=== PATIENT | male | born 1950 | race Caucasian/White ===

== ENCOUNTER → 2016-09-23 | Outpatient (CLI) | payer OTHER ==
[~2016-09-23] MED LIST: ADVIN25/60 INH; AMLO-110 PO; ASPI81TA28 PO; ATOR-24 PO; CETI10TA84 PO; CLOP1TAB15 PO; FLUT0.0529; LORA-741 PO; METF-384 PO; MULT-506 PO; PARO1TAB27 PO; SYMIN160 INH; VITAMIN D PO; [UNRECOGNIZED DRUG - OTHER] INJ
[2016-09-23 17:26] LABS: ALT/SGPT 65 U/L (12-78); BLOOD UREA NITROGEN 13 mg/dl (7-18); BUN/CREATININE RATIO 13.8 (10-20); CALCIUM 8.7 mg/dl (8.5-10.1); CARBON DIOXIDE 27 mmol/L (21-32); CHLORIDE 97 mmol/L (98-107); CHOLESTEROL 103 mg/dl (0-200); CREATININE 0.92 mg/dl (0.60-1.40); GLUCOSE 323 mg/dl (70-99); POTASSIUM 3.9 mmol/L (3.5-5.1); SODIUM 135 mmol/L (136-145)
[2016-09-23 17:32] LABS: ALB/GLOB RATIO 0.8 (0.9-2); ALKALINE PHOSPHATASE 128 U/L (45-117); AST/SGOT 51 U/L (15-37); CHOLESTEROL/HDL RATIO 3.4; HDL CHOLESTEROL 30 mg/dl; LDL CHOLESTEROL CALCULATED 33 mg/dl; PROSTATE SPECIFIC ANTIGEN 0.421 ng/ml (0.000-4.000); TRIGLYCERIDES 199 mg/dl (0-150); VERY LOW DENSITY LIPOPROT CALC 40 mg/dl
[2016-09-23 17:39] LABS: BETA-HYDROXYBUTYRATE 2.39 mg/dL (0.2-2.81); THYROID STIMULATING HORMONE 0.687 uIu/ml (0.300-4.500)
[2016-09-23 17:55] LABS: RATIO 53.2 mcg/mg (0-30.0)
[2016-09-24 06:16] LABS: ESTIMATED AVERAGE GLUCOSE 240 mg/dl; HA1C FLAG Normal (Normal)
== END | disposition home or self-care (01) ==
LOC: C.LABBFT 12:58
PROVIDERS: ATTEND Nurse Practitioner
DX: Z12.5 Encounter for screening for malignant neoplasm of prostate (principal); E04.2 Nontoxic multinodular goiter; E11.9 Type 2 diabetes mellitus without complications; I25.10 Atherosclerotic heart disease of native coronary artery without angina pectoris

== ENCOUNTER → 2016-10-15 | Outpatient (CLI) | payer OTHER ==
[2016-10-15 12:45] LABS: ALT/SGPT 35 U/L (12-78); BLOOD UREA NITROGEN 13 mg/dl (7-18); BUN/CREATININE RATIO 14.5 (10-20); CALCIUM 9.3 mg/dl (8.5-10.1); CARBON DIOXIDE 27 mmol/L (21-32); CHLORIDE 104 mmol/L (98-107); CHOLESTEROL 107 mg/dl (0-200); CREATININE 0.87 mg/dl (0.60-1.40); GLUCOSE 125 mg/dl (70-99); POTASSIUM 4.2 mmol/L (3.5-5.1); SODIUM 141 mmol/L (136-145); TRIGLYCERIDES 123 mg/dl (0-150); VERY LOW DENSITY LIPOPROT CALC 25 mg/dl
[2016-10-15 12:53] LABS: ALB/GLOB RATIO 0.9 (0.9-2); ALKALINE PHOSPHATASE 102 U/L (45-117); AST/SGOT 35 U/L (15-37); CHOLESTEROL/HDL RATIO 2.4; HDL CHOLESTEROL 44 mg/dl; LDL CHOLESTEROL CALCULATED 38 mg/dl; THYROID STIMULATING HORMONE 0.867 uIu/ml (0.300-4.500)
[2016-10-15 12:55] LABS: ESTIMATED AVERAGE GLUCOSE 212 mg/dl; HA1C FLAG Normal (Normal)
== END | disposition home or self-care (01) ==
LOC: C.LABBFT 08:20
PROVIDERS: ATTEND Internal Medicine
DX: E78.5 Hyperlipidemia, unspecified (principal); I10 Essential (primary) hypertension; E11.9 Type 2 diabetes mellitus without complications; I25.10 Atherosclerotic heart disease of native coronary artery without angina pectoris

== ENCOUNTER → 2017-02-19 | Outpatient (CLI) | payer OTHER ==
[2017-02-19 18:53] LABS: ALKALINE PHOSPHATASE 80 U/L (45-117); ALT/SGPT 25 U/L (12-78); AST/SGOT 21 U/L (15-37); BLOOD UREA NITROGEN 19 mg/dl (7-18); BUN/CREATININE RATIO 22.2 (10-20); CALCIUM 8.7 mg/dl (8.5-10.1); CARBON DIOXIDE 29 mmol/L (21-32); CHLORIDE 107 mmol/L (98-107); CHOLESTEROL 118 mg/dl (0-200); CHOLESTEROL/HDL RATIO 2.6; CREATININE 0.85 mg/dl (0.60-1.40); GLUCOSE 84 mg/dl (70-99); HDL CHOLESTEROL 46 mg/dl; LDL CHOLESTEROL CALCULATED 54 mg/dl; POTASSIUM 4.4 mmol/L (3.5-5.1); SODIUM 143 mmol/L (136-145); TRIGLYCERIDES 89 mg/dl (0-150); VERY LOW DENSITY LIPOPROT CALC 18 mg/dl
[2017-02-20 06:36] LABS: ESTIMATED AVERAGE GLUCOSE 140 mg/dl; HA1C FLAG Normal (Normal)
== END | disposition home or self-care (01) ==
LOC: C.LABBFT 11:48
PROVIDERS: ATTEND Nurse Practitioner
DX: E11.9 Type 2 diabetes mellitus without complications (principal)

== ENCOUNTER → 2017-02-21 | Outpatient (CLI) | payer OTHER ==
--- NOTE | 2017-02-21 15:42 | MAMMOGRAPHY REPORT ---
MALE BILATERAL DIGITAL DIAGNOSTIC MAMMOGRAM WITH CAD AND TARGETED LEFT ULTRASOUND: 02/21/2017 CLINICAL HISTORY: The patient reports focal left nipple tenderness which is increasing over the last 2 months. He denies any palpable lumps. He has a history of melanoma status post chemotherapy. TECHNIQUE: Current study was also evaluated with a Computer Aided Detection (CAD) system. Bilateral CC and MLO views were obtained. COMPARISON: No prior exams were available for comparison. BREAST COMPOSITION: The tissue of both breasts is prominently fatty. FINDINGS: A marker joel the site of pain involving the left subareolar breast. There is a small jonah unt of fibroglandular tissue seen within the left subareolar breast, consistent with benign gynecomas tia. There are no suspicious masses, calcifications, or areas of architectural distortion noted in e ither breast. Targeted ultrasound was performed of the left subareolar breast in the region of the pain pointed out by the patient. Fibroglandular tissue is seen within this region, consistent with gynecomastia. No suspicious masses are noted in this region on ultrasound. IMPRESSION: ACR BI-RADS CATEGORY 2: BENIGN, TARGETED ULTRASOUND ACR BI-RADS CATEGORY 2: BENIGN Mild gynecomastia involving the left subareolar breast, which corresponds with the tenderness pointed out by the patient. There is no mammographic or targeted sonographic evidence of malignancy. Recom mend clinical follow-up as to a possible underlying cause. The patient has been verbally notified of the results. Approximately 10% of breast cancers are not detected with mammography. A negative mammographic report should not delay biopsy if a clinically suggestive mass is present. Ema Contreras M.D. ah/:02/21/2017 13:58:41 Personal Counselor: Bessy OSORIO(Elin)(M), [facility] letter sent: Normal /2 BI-RADS Code: ACR BI-RADS Category 2: Benign Ultrasound BI-RADS: ACR BI-RADS Category 2: Benign
== END | disposition home or self-care (01) ==
LOC: C.MAMM 13:33
PROVIDERS: ATTEND Nurse Practitioner Family
DX: N62 Hypertrophy of breast (principal); Z85.820 Personal history of malignant melanoma of skin

== ENCOUNTER → 2017-03-19 | Outpatient (CLI) | payer OTHER ==
--- NOTE | 2017-03-19 20:53 | DIAGNOSTIC IMAGING REPORT ---
ORBIT RADIOGRAPHS 3 VIEWS HISTORY: pre-MRI screening. COMPARISON: None. FINDINGS: There are no radiopaque foreign bodies identified within the orbits. IMPRESSION: No radiopaque foreign bodies identified within the orbits. Electronically signed by: Gerson Wadsworth M.D. 03/19/2017 8:51 PM Dictated Date/Time: 03/19/2017 8:51 PM
--- NOTE | 2017-03-20 13:49 | DIAGNOSTIC IMAGING REPORT ---
MRI OF THE LEFT FOOT WITHOUT CONTRAST CLINICAL HISTORY: Left foot pain. Evaluate for occult fracture of left fifth metatarsal. COMPARISON STUDY: No previous studies for comparison. TECHNIQUE: Utilizing a 1.5 Jia magnet and dedicated coil, multiplanar, multi echo imaging of the left foot was performed without IV contrast. FINDINGS: A marker was placed on the skin at site of maximal pain. This marker overlies the distal cuboid and base of the left fifth metatarsal. No definite fracture is identified within the left fifth metatarsal. There is no significant marrow edema. There is no suspicious marrow replacement. There is a small focus of moderate marrow edema within the medial talar dome. This suggests an osteochondral abnormality. The flexor, extensor and peroneal tendons are intact. Alignment of the tarsometatarsal joints is anatomic. No mass or fluid collection is shown within the left foot. The anterior talofibular ligament is likely torn. IMPRESSION: 1. No evidence of fracture of the left fifth metatarsal. 2. Small focus of moderate marrow edema within the medial talar dome which suggests a stable osteochondral lesion. 3. Tear of the anterior talofibular ligament which is likely old. Electronically signed by: Gerson Wadsworth M.D. 03/20/2017 1:48 PM Dictated Date/Time: 03/19/2017 10:01 PM
== END | disposition home or self-care (01) ==
LOC: C.MRI 19:44
PROVIDERS: ATTEND Orthopaedic Surgery Sports Medicine
DX: M79.672 Pain in left foot (principal)

== ENCOUNTER → 2017-05-13 | Outpatient (CLI) | payer OTHER ==
[2017-05-13 12:16] LABS: BASO % 0.5 %; BASO ABS # 0.03 K/uL (0-0.2); COMPLETE YES; EOS % 2.4 %; IG% 0.2 %; LYMPH % 26.1 %; LYMPH ABS # 1.52 K/uL (1.2-3.4); MEAN CELL VOLUME 89.6 fL (80-100); MEAN CORPUSCULAR HEMOGLOBIN 31.2 pg (25-34); MEAN CORPUSCULAR HGB CONC 34.8 g/dl (32-36); MEAN PLATELET VOLUME 10.2 fL (7.4-10.4); MONO % 9.8 %; PLATELET COUNT 241 K/uL (130-400); RED BLOOD COUNT 4.91 M/uL (4.7-6.1); WHITE BLOOD COUNT 5.82 K/uL (4.8-10.8)
[2017-05-13 12:51] LABS: ALB/GLOB RATIO 0.9 (0.9-2); ALKALINE PHOSPHATASE 93 U/L (45-117); BLOOD UREA NITROGEN 16 mg/dl (7-18); BUN/CREATININE RATIO 17.6 (10-20); C-REACTIVE PROTEIN < 0.29 mg/dl (0-0.29); CALCIUM 9.4 mg/dl (8.5-10.1); CARBON DIOXIDE 31 mmol/L (21-32); CHLORIDE 106 mmol/L (98-107); CREATININE 0.89 mg/dl (0.60-1.40); GLUCOSE 133 mg/dl (70-99); POTASSIUM 4.9 mmol/L (3.5-5.1); SODIUM 140 mmol/L (136-145)
[2017-05-13 12:58] LABS: ALT/SGPT 22 U/L (12-78); AST/SGOT 17 U/L (15-37); THYROID STIMULATING HORMONE 0.767 uIu/ml (0.300-4.500)
== END | disposition home or self-care (01) ==
LOC: C.LABBFT 09:12
PROVIDERS: ATTEND Nurse Practitioner
DX: C43.59 Malignant melanoma of other part of trunk (principal)

== ENCOUNTER → 2017-05-21 | Outpatient (CLI) | payer OTHER ==
--- NOTE | 2017-05-21 11:49 | DIAGNOSTIC IMAGING REPORT ---
PET/CT WHOLE BODY HISTORY: MELANOMA TECHNIQUE: PET/CT was performed from the vertex of the skull through the feet following the intravenous administration of 12.18 mCi of F18-FDG. Non-contrast CT imaging was performed over the same range without breath-hold for attenuation correction of PET images and anatomic correlation, but not for primary interpretation as it is not of standard diagnostic quality. CT DOSE: COMPARISON: Chest abdomen and pelvis CT 11/21/2015. FINDINGS: HEAD AND NECK: Mild non masslike thickening within the subcutaneous right postauricular soft tissues. This demonstrates mild FDG uptake with an SUV max of 2.7. No FDG avid cervical lymph nodes. Normal degenerative uptake seen throughout the brain. CHEST: There is no FDG-avid disease in the chest. There is no axillary, mediastinal, or hilar lymphadenopathy. There is no pleural or pericardial effusion. There is no air-space disease or suspicious lung nodule. A 3 cm right thyroid nodule is again noted. This is better appreciated on a prior thyroid ultrasound. This does not demonstrate significant FDG uptake. ABDOMEN/PELVIS: Below the diaphragm, tracer is distributed physiologically in the gastrointestinal and genitourinary tracts. There is no significant lymphadenopathy and no FDG-avid disease. Calcified gallstone. Small focus of FDG uptake near the right adrenal gland likely represents physiologic uptake within the IVC. There are no adrenal gland nodules. Persistent thickening of the sigmoid colon favors muscular hypertrophy due to the extensive diverticulosis. MUSCULOSKELETAL/LOWER EXTREMITIES: There is no FDG-avid or destructive bone lesion. IMPRESSION: 1. Focal area of mild non masslike thickening within the subcutaneous right postauricular soft tissues. This may be due to mild inflammatory change or physiologic uptake. Direct visualization is recommended to exclude the less likely possibility of a soft tissue lesion. 2. Otherwise, no FDG avid disease identified within the chest, abdomen, pelvis, or lower extremities. 3. No change in the mild thickening of the mid sigmoid colon. This may be due to muscular hypertrophy from the extensive colonic diverticulosis. 4. Redemonstration of the 3 cm right thyroid nodule. This does not demonstrate significant FDG uptake. Electronically signed by: Christian Herrera M.D. 05/21/2017 11:48 AM Dictated Date/Time: 05/21/2017 11:26 AM
== END | disposition home or self-care (01) ==
LOC: C.PET 08:27
PROVIDERS: ATTEND Nurse Practitioner Family
DX: C43.59 Malignant melanoma of other part of trunk (principal); E04.1 Nontoxic single thyroid nodule

== ENCOUNTER → 2017-08-04 | Outpatient (CLI) | payer OTHER ==
[2017-08-04 17:58] LABS: BLOOD UREA NITROGEN 16 mg/dl (7-18); BUN/CREATININE RATIO 17.9 (10-20); CALCIUM 8.9 mg/dl (8.5-10.1); CARBON DIOXIDE 29 mmol/L (21-32); CHLORIDE 102 mmol/L (98-107); CREATININE 0.88 mg/dl (0.60-1.40); GLUCOSE 96 mg/dl (70-99); POTASSIUM 4.4 mmol/L (3.5-5.1); SODIUM 137 mmol/L (136-145)
[2017-08-04 18:08] LABS: PROSTATE SPECIFIC ANTIGEN 0.551 ng/ml (0.000-4.000); THYROID STIMULATING HORMONE 0.875 uIu/ml (0.300-4.500)
[2017-08-05 07:18] LABS: ESTIMATED AVERAGE GLUCOSE 128 mg/dl; HA1C FLAG Normal (Normal)
== END | disposition home or self-care (01) ==
LOC: C.LABBFT 11:44
PROVIDERS: ATTEND Nurse Practitioner
DX: E11.9 Type 2 diabetes mellitus without complications (principal); Z12.5 Encounter for screening for malignant neoplasm of prostate; E04.2 Nontoxic multinodular goiter

== ENCOUNTER 2021-09-13 16:59 | Observation (INO) ==
[2021-09-13 18:35] LABS: Basophils # (auto) 0.03 K/uL (0-0.2); Basophils % (auto) 0.3 %; Eosinophils # (auto) 0.15 K/uL (0-0.5); Eosinophils % (auto) 1.3 %; Hematocrit (blood only) 46.4 % (42-52); Hemoglobin 16.1 g/dL (14.0-18.0); Immature Granulocytes # (auto) 0.02 K/uL (0.00-0.02); Immature Granulocytes % (auto) 0.2 %; Lymphocytes # (auto) 2.62 K/uL (1.2-3.4); Lymphocytes % (auto) 22.9 %; Mean Corpuscular Hemoglobin 29.2 pg (25-34); Mean Corpuscular Hgb Conc 34.7 g/dL (32-36); Mean Corpuscular Volume 84.1 fL (80-100); Mean Platelet Volume 10.1 fL (7.4-10.4); Monocytes # (auto) 0.64 K/uL (0.11-0.59); Monocytes % (auto) 5.6 %; Neutrophils # (auto) 7.97 K/uL (1.4-6.5); Neutrophils % (auto) 69.7 %; Platelet Count 381 K/uL (130-400); RDW Coefficient of Variation 13.1 % (11.5-14.5); RDW Standard Deviation 40.1 fL (36.4-46.3); Red Blood Count 5.52 M/uL (4.7-6.1); White Blood Count 11.43 K/uL (4.8-10.8)
--- NOTE | 2021-09-13 18:39 | Emergency Department Note ---
History of Present Illness General Chief complaint: Abdominal Pain Stated complaint: ABDOMINAL PAIN, A1C ELEVATED Time Seen by Provider: 09/13/21 18:27 Source: patient History of Present Illness Provider complaint: Abdominal pain Onset (ago): week(s) Location: abdomen Radiation: non-radiation Pain Consistency: + intermittent Maximum Pain Intensity: 8 Quality: + dull Relieved By: + none Exacerbated By: + none Associated symptoms: no chest pain, no cough, no fever/chills, no nausea/vomiting or no shortness of breath This is a 71-year-old male who presents with abdominal pain near his umbilicus starting about a week ago. The patient states the pain is intermittent. He describes it as dull. No modifying factors. He states that he [facility] and was scheduled for a CAT scan of the abdomen pelvis tomorrow. He denies any associated fever, nausea, vomiting or diarrhea. He has had no black or bloody stools. He did have a normal bowel movement today at 2 PM. He has had no cough or cold symptoms, chest pain, shortness of breath, cough or cold symptoms or urinary symptoms. Home Medications Medication Instructions Recorded Confirmed Type aspirin 81 mg tablet,delayed 81 mg PO DAILY 12/21/18 09/13/21 History release fluticasone propionate 50 2 spray INTRANASAL DAILY PRN 12/21/18 09/13/21 History mcg/actuation nasal spray,suspension (Flonase Allergy Relief) albuterol sulfate 90 mcg/actuation 2 puff INHALATION Q4 PRN #18 g 02/16/21 09/13/21 Rx aerosol inhaler (ProAir HFA) famotidine 20 mg tablet 20 mg PO BID #60 tab 07/23/21 09/13/21 Rx amlodipine 5 mg tablet 5 mg PO DAILY 09/13/21 09/13/21 History atorvastatin 40 mg tablet 40 mg PO DAILY 09/13/21 09/13/21 History budesonide-formoterol HFA 80 2 puff INHALATION BID 09/13/21 09/13/21 History mcg-4.5 mcg/actuation aerosol inhaler clopidogrel 75 mg tablet 75 mg PO DAILY 09/13/21 09/13/21 History dicyclomine 10 mg capsule 10 mg PO Q6 09/13/21 09/13/21 History escitalopram oxalate 5 mg tablet 10 mg PO DAILY 09/13/21 09/13/21 History metformin 500 mg tablet,extended 1,000 mg PO DAILY 09/13/21 09/13/21 History release 24 hr montelukast 10 mg tablet 10 mg PO DAILY 09/13/21 09/13/21 History multivitamin 1 tab PO DAILY 09/13/21 09/13/21 History semaglutide (Ozempic) 0.25 mg SUBCUT .weekly #1.5 ml 09/13/21 09/13/21 Rx vitamin B complex-vit B12 1 tab PO DAILY 09/13/21 09/13/21 History Allergies Allergy/AdvReac Type Severity Reaction Status Date / Time amoxicillin Allergy Mild RASH Verified 09/13/21 19:37 metoprolol Allergy Mild S.O.B. Verified 09/13/21 19:37 fluticasone AdvReac unknown Verified 09/13/21 19:37 [From Advair Diskus] salmeterol AdvReac unknown Verified 09/13/21 19:37 [From Advair Diskus] Past Med/Surg History Medical History (Updated 09/13/21 @ 22:48 by Renetta Ardon DO) Anxiety Asthma Cancer MELANOMA (WITH EXCISION & CHEMOTHERAPY) Depression Diabetes mellitus, type 2 NIDDM GERD (gastroesophageal reflux disease) Hyperlipidemia Hypertension Malignant melanoma of back Presence of drug-eluting stent in right coronary artery Seasonal allergies Surgical History History of bowel resection History of cardiac cath X1. (2014) [facility] [place]. History of colonoscopy History of heart artery stent X1 STENTS. (2014). TAKES [facility]. History of melanoma excision History of repair of rotator cuff right Family History Sister Diabetes Father Alzheimer disease Mother Pancreatic cancer Denies family history of Colon cancer Ovarian cancer Prostate cancer Myocardial infarction Breast cancer Social History Smoking Status: Light tobacco smoker Tobacco Type: Cigarettes Age Started Using Tobacco: 17; Age Quit Using Tobacco: 49; packs per day: 1; Years Smoked: 32; Cigarettes Per Day: 20; Number of Years Since Quit: 20; Second Hand Exposure: No; Do You Dip or Chew Tobacco: No; Tobacco Cessation Education Requested by Patient: No Hx Alcohol Use: No Hx Substance Use: No Preferred Language: Sami Communication Ability: Effective Visual Impairment: No Limitations Hearing Ability: Normal [employer] Floorperson Required: No Beliefs That Will Affect Care: None marital status: Current Living Situation: Alone Current Living Situation Comment: Home in [place] current occupational status: retired current occupation: retired from [employer] Other Information That Helps Us Care for You: No Feels Safe at Home: Yes Safety Concerns: Feels Safe At This Time Childhood Exposure to Second-Hand Smoke: No Dental Care, Regularly: No Physical Activity Frequency: Does not Exercise Seatbelt Use: always Sunscreen Use: No Assistive Devices: Denture - Upper and Glasses Review of Systems See HPI for pertinent positives & negatives. and A total of 10 systems reviewed and were otherwise negative Physical Exam Vital Signs Vital Signs - 24 hr 09/13/21 17:12 09/13/21 19:02 09/13/21 19:23 Temperature 36.7 C Temperature Source Temporal Artery Scan Pulse Rate 109 H 90 Pulse Rate [Apical] 87 Pulse Rate from SpO2 Sensor 91 H Pulse Rhythm Regular Pulse Rhythm [Apical] Pulse Strength Normal Pulse Strength [Apical] Respiratory Rate 20 16 17 Respiratory Effort / Characteristics Non-Labored Spontaneous Respiratory Depth Normal Respiratory Pattern Regular Blood Pressure 165/102 H Blood Pressure [Right Arm] 167/95 H Blood Pressure Mean 123 Blood Pressure Mean [Right Arm] 119 Blood Pressure Position [Right Arm] Lying Pulse Oximetry 96 97 96 Oxygen Delivery Method Room Air Room Air Sepsis Recent Fever Within 48 Hours No Sepsis New/Unexplained Change in Mental Status No Sepsis Action Taken by Nursing No Action Required 09/13/21 19:30 09/13/21 19:40 09/13/21 19:50 Temperature Temperature Source Pulse Rate 99 H 88 85 Pulse Rate [Apical] Pulse Rate from SpO2 Sensor 99 H 87 85 Pulse Rhythm Pulse Rhythm [Apical] Pulse Strength Pulse Strength [Apical] Respiratory Rate 16 19 18 Respiratory Effort / Characteristics Respiratory Depth Respiratory Pattern Blood Pressure Blood Pressure [Right Arm] Blood Pressure Mean Blood Pressure Mean [Right Arm] Blood Pressure Position [Right Arm] Pulse Oximetry 92 96 92 Oxygen Delivery Method Sepsis Recent Fever Within 48 Hours Sepsis New/Unexplained Change in Mental Status Sepsis Action Taken by Nursing 09/13/21 20:00 09/13/21 20:10 09/13/21 20:20 Temperature Temperature Source Pulse Rate 84 94 H 98 H Pulse Rate [Apical] Pulse Rate from SpO2 Sensor 85 94 H 97 H Pulse Rhythm Pulse Rhythm [Apical] Pulse Strength Pulse Strength [Apical] Respiratory Rate 21 19 17 Respiratory Effort / Characteristics Respiratory Depth Respiratory Pattern Blood Pressure Blood Pressure [Right Arm] Blood Pressure Mean Blood Pressure Mean [Right Arm] Blood Pressure Position [Right Arm] Pulse Oximetry 93 92 92 Oxygen Delivery Method Sepsis Recent Fever Within 48 Hours Sepsis New/Unexplained Change in Mental Status Sepsis Action Taken by Nursing 09/13/21 20:30 09/13/21 20:40 09/13/21 20:50 Temperature Temperature Source Pulse Rate 95 H 104 H 99 H Pulse Rate [Apical] Pulse Rate from SpO2 Sensor 94 H 104 H 99 H Pulse Rhythm Pulse Rhythm [Apical] Pulse Strength Pulse Strength [Apical] Respiratory Rate 16 25 H 27 H Respiratory Effort / Characteristics Respiratory Depth Respiratory Pattern Blood Pressure Blood Pressure [Right Arm] Blood Pressure Mean Blood Pressure Mean [Right Arm] Blood Pressure Position [Right Arm] Pulse Oximetry 92 96 95 Oxygen Delivery Method Sepsis Recent Fever Within 48 Hours Sepsis New/Unexplained Change in Mental Status Sepsis Action Taken by Nursing 09/13/21 21:00 09/13/21 21:10 09/13/21 21:20 Temperature Temperature Source Pulse Rate 98 H 99 H 103 H Pulse Rate [Apical] Pulse Rate from SpO2 Sensor 98 H 100 H 102 H Pulse Rhythm Pulse Rhythm [Apical] Pulse Strength Pulse Strength [Apical] Respiratory Rate 21 20 24 Respiratory Effort / Characteristics Respiratory Depth Respiratory Pattern Blood Pressure Blood Pressure [Right Arm] Blood Pressure Mean Blood Pressure Mean [Right Arm] Blood Pressure Position [Right Arm] Pulse Oximetry 91 92 95 Oxygen Delivery Method Sepsis Recent Fever Within 48 Hours Sepsis New/Unexplained Change in Mental Status Sepsis Action Taken by Nursing 09/13/21 21:30 09/13/21 21:40 09/13/21 21:46 Temperature Temperature Source Pulse Rate 99 H 98 H Pulse Rate [Apical] 100 H Pulse Rate from SpO2 Sensor 98 H 97 H Pulse Rhythm Pulse Rhythm [Apical] Pulse Strength Pulse Strength [Apical] Respiratory Rate 23 21 20 Respiratory Effort / Characteristics Respiratory Depth Respiratory Pattern Blood Pressure Blood Pressure [Right Arm] Blood Pressure Mean Blood Pressure Mean [Right Arm] Blood Pressure Position [Right Arm] Pulse Oximetry 94 92 92 Oxygen Delivery Method Sepsis Recent Fever Within 48 Hours Sepsis New/Unexplained Change in Mental Status Sepsis Action Taken by Nursing 09/13/21 22:26 09/14/21 00:00 Temperature 37.1 C Temperature Source Oral Pulse Rate Pulse Rate [Apical] 88 87 Pulse Rate from SpO2 Sensor Pulse Rhythm Pulse Rhythm [Apical] Regular Pulse Strength Pulse Strength [Apical] Normal Respiratory Rate 18 16 Respiratory Effort / Characteristics Non-Labored Respiratory Depth Normal Respiratory Pattern Regular Blood Pressure Blood Pressure [Right Arm] 107/95 138/80 Blood Pressure Mean Blood Pressure Mean [Right Arm] 99 99 Blood Pressure Position [Right Arm] Lying Lying Pulse Oximetry 93 93 Oxygen Delivery Method Room Air Room Air Sepsis Recent Fever Within 48 Hours Sepsis New/Unexplained Change in Mental Status Sepsis Action Taken by Nursing Constitutional: Vital signs reviewed. Eyes: Pupils are equal round reactive to light. Conjunctiva are noninjected. ENT: Pharynx is clear without erythema or exudate. Mucous membranes are moist. Neck supple without meningeal signs. Respiratory: Clear to auscultation bilaterally. Breath sounds are equal bilaterally. Cardiovascular: Regular rate and rhythm. No rubs or gallops. GI: Soft, nondistended with partially reducible umbilical and periumbilical hernia with tenderness. No guarding. Bowel sounds are present. Musculoskeletal: No peripheral edema. No lower extremity tenderness. Integumentary: No cyanosis. or jaundice. Neurological: The patient is awake and alert. No focal deficits. Psychiatric: Normal affect. Not anxious appearing. Course Administered Medications Sodium Chloride (Nss 1000ml) 1,000 mls @ 125 mls/hr IV .Q8H [facility] Stop: 09/14/21 06:04 Last Admin: 09/13/21 22:10 Dose: 125 mls/hr Documented by: [id number] Insulin Glargine (Insulin Glargine Solostar 100 Units/Ml 3 Ml Pen) 15 units SC BID DANIA Stop: 10/13/21 22:04 Last Admin: 09/13/21 22:47 Dose: 15 units Documented by: [id number] Cosigned by: [id number] Discontinued Medications Sodium Chloride (Nss 1000ml) 500 mls @ 999 mls/hr IV .Q31M ONE Stop: 09/13/21 19:48 Last Infusion: 09/13/21 20:04 Dose: 0 mls/hr Documented by: [id number] Admin: 09/13/21 19:33 Dose: 999 mls/hr Documented by: [id number] Insulin Human Regular (Novolin-R Insulin Per Unit Charge) 8 units IV NOW STA Stop: 09/13/21 19:19 Last Admin: 09/13/21 19:32 Dose: 8 units Documented by: [id number] Cosigned by: [id number] Insulin Human Regular (Insulin Human Regular) 10 units SC NOW STA Stop: 09/13/21 22:06 Last Admin: 09/13/21 22:09 Dose: 10 units Documented by: [id number] Cosigned by: [id number] Insulin Human Regular (Novolin-R Insulin Per Unit Charge) Confirm Administered Dose 10 units .ROUTE .STK-MED ONE Stop: 09/13/21 22:10 Last Admin: 09/13/21 22:16 Dose: Not Given Documented by: [id number] Ioversol (Optiray 320 100ml) 95 ml IV ONCE ONE Stop: 09/13/21 19:16 Last Admin: 09/13/21 19:18 Dose: 95 ml Documented by: [id number] Medical Decision Making Differential Diagnosis Umbilical hernia, incarcerated hernia, mesenteric ischemia, pancreatitis, cholecystitis, choledocholithiasis, peptic ulcer disease Medical Records Attestation: I reviewed the patient's medical records. I did perform a limited focused review of portions of the patient's old chart on the electronic medical record. The patient was seen by his primary care doctor 2 days ago and his metformin was increased to 2000 mg a day due to elevated blood sugars. Home Medications Current Medication List: was personally reviewed by me Laboratory Data Attestation: I reviewed the patient's lab results. Result diagrams: 09/13/21 18:23 09/13/21 18:23 Lab Results 09/13/21 09/13/21 09/13/21 Range/Units 18:23 18:23 18:45 WBC 11.43 H (4.8-10.8) K/uL RBC 5.52 (4.7-6.1) M/uL Hgb 16.1 (14.0-18.0) g/dL Hct 46.4 (42-52) % MCV 84.1 (80-100) fL MCH 29.2 (25-34) pg MCHC 34.7 (32-36) g/dL RDW Std Deviation 40.1 (36.4-46.3) fL RDW Coeff of [place] 13.1 (11.5-14.5) % Plt Count 381 (130-400) K/uL MPV 10.1 (7.4-10.4) fL Immature Gran % (Auto) 0.2 % Neut % (Auto) 69.7 % Lymph % (Auto) 22.9 % [place] % (Auto) 5.6 % Eos % (Auto) 1.3 % Baso % (Auto) 0.3 % Neut # (Auto) 7.97 H (1.4-6.5) K/uL Lymph # (Auto) 2.62 (1.2-3.4) K/uL [place] # (Auto) 0.64 H (0.11-0.59) K/uL Eos # (Auto) 0.15 (0-0.5) K/uL Baso # (Auto) 0.03 (0-0.2) K/uL Immature Gran # (Auto) 0.02 (0.00-0.02) K/uL Sodium 132 L (136-145) mmol/L Potassium 4.7 D (3.5-5.1) mmol/L Chloride 98 (98-107) mmol/L Carbon Dioxide 28 (21-32) mmol/L Anion Gap 6.0 (3-11) BUN 13 (7-18) mg/dl Creatinine 1.09 (0.6-1.4) mg/dl Est Cr Clr Drug Dosing 60.4 ml/min Est GFR ( Amer) 78.2 ml/min Est GFR (Non-Af Amer) 67.5 ml/min BUN/Creatinine Ratio 11.6 (10-20) Glucose 426 H* (70-99) mg/dl POC Glucose (70-99) mg/dl Calcium 10.5 H (8.5-10.1) mg/dl Total Bilirubin 0.3 (0.2-1) mg/dl AST 24 (15-37) U/L ALT 35 (12-78) Alkaline Phosphatase 107 (45-117) U/L Troponin I < 0.015 (0-0.045) ng/ml Total Protein 8.2 (6.4-8.2) gm/dl Albumin 3.7 (3.4-5.0) gm/dl Globulin 4.5 H (2.5-4.0) gm/dl Albumin/Globulin Ratio 0.8 L (0.9-2) Lipase 220 (73-393) U/L Beta-Hydroxybutyric Acd (0.2-2.81) mg/dl Urine Color Yellow Urine Appearance Clear (Clear) Urine pH 8.0 H (4.5-7.5) Ur Specific [place] 1.039 H (1.000-1.030) Urine Protein Negative (Negative) Urine Glucose (UA) 3+ H (Negative) Urine Ketones 1+ H (Negative) Urine Blood Trace H (Negative) Urine Nitrite Negative (Negative) Urine Bilirubin Negative (Negative) Urine Urobilinogen Negative (Negative) Ur Leukocyte Esterase Negative (Negative) Urine WBC (Auto) 0 (0-5) /hpf Urine RBC (Auto) 5-10 H (0-4) /hpf U Hyaline Cast (Auto) 0 (0-5) /lpf U Epithel Cells (Auto) 0-5 (0-5) /lpf Urine Bacteria (Auto) Negative (Negative) SARS-CoV-2, RNA, NAAT (NEGATIVE) 09/13/21 09/13/21 09/13/21 Range/Units 20:08 20:35 23:52 WBC (4.8-10.8) K/uL RBC (4.7-6.1) M/uL Hgb (14.0-18.0) g/dL Hct (42-52) % MCV (80-100) fL MCH (25-34) pg MCHC (32-36) g/dL RDW Std Deviation (36.4-46.3) fL RDW Coeff of [place] (11.5-14.5) % Plt Count (130-400) K/uL MPV (7.4-10.4) fL Immature Gran % (Auto) % Neut % (Auto) % Lymph % (Auto) % [place] % (Auto) % Eos % (Auto) % Baso % (Auto) % Neut # (Auto) (1.4-6.5) K/uL Lymph # (Auto) (1.2-3.4) K/uL [place] # (Auto) (0.11-0.59) K/uL Eos # (Auto) (0-0.5) K/uL Baso # (Auto) (0-0.2) K/uL Immature Gran # (Auto) (0.00-0.02) K/uL Sodium (136-145) mmol/L Potassium (3.5-5.1) mmol/L Chloride (98-107) mmol/L Carbon Dioxide (21-32) mmol/L Anion Gap (3-11) BUN (7-18) mg/dl Creatinine (0.6-1.4) mg/dl Est Cr Clr Drug Dosing ml/min Est GFR ( Amer) ml/min Est GFR (Non-Af Amer) ml/min BUN/Creatinine Ratio (10-20) Glucose (70-99) mg/dl POC Glucose 365 H* 181 H (70-99) mg/dl Calcium (8.5-10.1) mg/dl Total Bilirubin (0.2-1) mg/dl AST (15-37) U/L ALT (12-78) Alkaline Phosphatase (45-117) U/L Troponin I (0-0.045) ng/ml Total Protein (6.4-8.2) gm/dl Albumin (3.4-5.0) gm/dl Globulin (2.5-4.0) gm/dl Albumin/Globulin Ratio (0.9-2) Lipase (73-393) U/L Beta-Hydroxybutyric Acd (0.2-2.81) mg/dl Urine Color Urine Appearance (Clear) Urine pH (4.5-7.5) Ur Specific [place] (1.000-1.030) Urine Protein (Negative) Urine Glucose (UA) (Negative) Urine Ketones (Negative) Urine Blood (Negative) Urine Nitrite (Negative) Urine Bilirubin (Negative) Urine Urobilinogen (Negative) Ur Leukocyte Esterase (Negative) Urine WBC (Auto) (0-5) /hpf Urine RBC (Auto) (0-4) /hpf U Hyaline Cast (Auto) (0-5) /lpf U Epithel Cells (Auto) (0-5) /lpf Urine Bacteria (Auto) (Negative) SARS-CoV-2, RNA, NAAT NEGATIVE (NEGATIVE) Imaging Data Radiologist's Impression: Abdomen/Pelvis CT 09/13/21 18:36 CT abd pelvis IV con only CLINICAL HISTORY: periumbilical pain TECHNIQUE: Helical axial images of the abdomen and pelvis were obtained and displayed. Automated dose lowering techniques and/or adjustment according to patient size were utilized for this exam. This exam was performed with in travenous contrast. COMPARISON: Comparison is made to CT abdomen pelvis 10/25/2020 FINDINGS: Lower chest: No acute abnormality Liver: Hepatomegaly is seen with the midclavicular line length of 17 cm. Gallbladder and biliary tree: Layering radiodense gallstones are seen. No intra- or extrahepatic biliary ductal dilation. Pancreas: Unremarkable, no focal lesions. Spleen: Unremarkable. Adrenals: Unremarkable. Kidneys and ureters: Unremarkable. Bladder: Limited evaluation due to underdistention. Reproductive organs: Unremarkable. Bowel: Status post small bowel resection. Diverticulosis is seen without evidence of diverticulitis. The appendix is normal. Lymph nodes Retroperitoneal: Unremarkable. Mesenteric: Previously noted mesenteric lymphadenopathy is no longer present. Pelvic: Unremarkable. Peritoneum: Normal Vessels: Atherosclerotic calcifications are seen. Abdominal wall: There is an incisional hernia, new from prior exam, containing a loop of bowel. There is no bowel obstruction noted, however there is surrounding edema. There are also multiple tiny supraumbilical hernias containing only fat. Bones: Unremarkable. IMPRESSION: 1. There is an infraumbilical hernia with a loop of bowel and edema. Although there is no rodrigo obstruction, early ischemic changes cannot be excluded. 2. Previous seen noted mesenteric lymphadenopathy has resolved. 3. Redemonstration of colonic diverticulosis. 4. Hepatomegaly. 5. Additional findings as above. ACT 112: Negative or not required by law. Electronically signed by: Kartik Griffin M.D. 09/13/2021 7:37 PM ECG Data Attestation: I personally reviewed and interpreted this ECG as follows: Indication: + abdominal pain Rate (beats per minute): 97 Rhythm: + normal sinus ECG Intervals/blocks: + Right Bundle branch block ECG [place]: + Normal ECG ST segments: no ST elevation ECG Findings: no PVCs Comparison ECG Date: from (September 02, 2014) Change: the following changes noted (Right bundle branch block is new.) MDM Narrative I did evaluate the patient as noted above. The patient is presenting with a week of intermittent dull periumbilical pain. On exam he is tender over a partially reducible hernia. He denies any chest discomfort or pain or shortness of breath. He has had normal bowel movements and is not nauseated or vomiting or febrile. IV access was established. I did order and personally review the patient's 12-lead EKG as described above. He has a right bundle branch block. This was not present from his EKG from 2013. A more recent EKG is not available. He denies having any type of chest discomfort or shortness of breath. I did order a urine analysis. He does not have a UTI. He does have 1+ ketones and 3+ glucose. I did order and review the patient's blood work as noted in the electronic medical record. His white blood cell count is 11.4. He is not anemic or thrombocytopenic. His glucose is 426 with a pseudohyponatremia of 132. Electrolytes are otherwise unremarkable and has no signs of acidosis. Serum ketones were hemolyzed. LFTs are unremarkable. Lipase is 220. I did treat him with IV insulin and normal saline. I did order a CT of the abdomen and pelvis. I did review the images myself as well as the radiology report as described above. He has an incisional hernia with bowel and some edema. Ischemic changes cannot be ruled out. I did consult surgery. Melquiades Parada did come and assessed the patient in the emergency department. He was able to reduce the hernia in its entirety. The patient states he feels much better and has no pain currently. Melquiades Parada did not feel that there was any evidence of ischemia. Because Dr. Martin is the attending on for surgery he did not wish to be admitted to that service because he states his had complications from her surgery with Dr. Martin. The surgical service requested that the medical service admit the patient and they could consult the next surgical service in the morning as he is unwilling to see Dr. Martin. I did discuss case with Dr. Arevalo who very graciously excepted the patient for hospitalization. I did discuss the case with the dependency case manager. Repeat blood sugar is 365. Impression & Plan Incarcerated incisional hernia, Hyperglycemia Discharge Plan Visit Data Chief Complaint: Abdominal Pain Stated Complaint: ABDOMINAL PAIN, A1C ELEVATED ED Provider: Ab Rocha Discharge Problem: Incarcerated incisional hernia, Hyperglycemia Patient Disposition: Being Evaluated by Hospitalist Forms Stand Alone Forms: My [facility] Prescriptions Prescriptions: No Action albuterol sulfate [ProAir HFA] 90 mcg/actuation HFA aerosol inhaler 2 puff INHALATION Q4 PRN (Reason: Shortness Of Breath) Qty: 18 RF: 5 famotidine 20 mg tablet 20 mg PO BID Qty: 60 RF: 11 Ozempic 0.25 mg or 0.5 mg(2 mg/1.5 mL) pen injector 0.25 mg subcut .weekly Qty: 1.5 RF: 5 aspirin 81 mg Tablet,Delayed Release (Dr/Ec) 81 mg PO DAILY RF: 0 fluticasone propionate [Flonase Allergy Relief] 50 mcg/actuation [place],Suspension 2 spray INTRANASAL DAILY PRN (Reason: Allergy Symptoms) RF: 0 multivitamin Tablet 1 tab PO DAILY RF: 0 dicyclomine 10 mg capsule 10 mg PO Q6 RF: 0 budesonide-formoterol 80-4.5 mcg/actuation Hfa Aerosol Inhaler 2 puff INHALATION BID RF: 0 vitamin B complex-vit B12 1 tab PO DAILY RF: 0 atorvastatin 40 mg tablet 40 mg PO DAILY RF: 0 clopidogrel 75 mg tablet 75 mg PO DAILY RF: 0 amlodipine 5 mg tablet 5 mg PO DAILY RF: 0 montelukast 10 mg tablet 10 mg PO DAILY RF: 0 metformin 500 mg tablet extended release 24 hr 1,000 mg PO DAILY RF: 0 escitalopram oxalate 5 mg tablet 10 mg PO DAILY RF: 0 Referrals Referrals: Manolo Morales III, MD [Primary Care Provider] -
[2021-09-13 18:58] LABS: Alanine Aminotransferase 35 (12-78); Albumin Globulin Ratio 0.8 (0.9-2); Albumin Level 3.7 gm/dl (3.4-5.0); Alkaline Phosphatase 107 U/L (45-117); Aspartate Aminotransferase 24 U/L (15-37); BUN Creatinine Ratio 11.6 (10-20); Bilirubin,Total 0.3 mg/dl (0.2-1); Blood Urea Nitrogen 13 mg/dl (7-18); Calcium 10.5 mg/dl (8.5-10.1); Carbon Dioxide 28 mmol/L (21-32); Chloride 98 mmol/L (98-107); Creatinine Clr Calc Pharmacy 60.4 ml/min; Est GFR (African American) 78.2 ml/min; Est GFR (Non-African American) 67.5 ml/min; Globulin 4.5 gm/dl (2.5-4.0); Glucose 426 mg/dl (70-99); Lipase 220 U/L (73-393); Potassium 4.7 mmol/L (3.5-5.1); Sodium 132 mmol/L (136-145); Total Protein 8.2 gm/dl (6.4-8.2)
[2021-09-13] MEDS ORDERED: OPTIRAY 320 100ml IV ONE (19:15)
[2021-09-13 19:16] LABS: Appearance Urine Clear (Clear); Bacteria Urine Automated Negative (Negative); Bilirubin Urine Negative (Negative); Blood Urine Trace (Negative); Cast Urine Automated 0 /lpf (0-5); Color Urine Yellow; Epithelial Cell Urine Auto 0-5 /lpf (0-5); Glucose Urine UA 3+ (Negative); Ketones Urine 1+ (Negative); Leukocyte Esterase Urine Negative (Negative); Nitrite Urine Negative (Negative); Protein Urine Negative (Negative); Specific Gravity Urine 1.039 (1.000-1.030); Urobilinogen Urine Negative (Negative); WBC Urine Automated 0 /hpf (0-5)
[2021-09-13] MEDS ORDERED: SODIUM CHLORIDE 0.9% 1000ML 500 ML IV ONE (19:18)
[2021-09-13] MEDS ORDERED: NovoLIN-R INSULIN PER UNIT CHARGE IV STA (19:18)
--- NOTE | 2021-09-13 19:39 | CT Scan Report ---
CT abd pelvis IV con only CLINICAL HISTORY: periumbilical pain TECHNIQUE: Helical axial images of the abdomen and pelvis were obtained and displayed. Automated dose lowering techniques and/or adjustment according to patient size were utilized for this exam. This e xam was performed with intravenous contrast. COMPARISON: Comparison is made to CT abdomen pelvis 10/25/2020 FINDINGS: Lower chest: No acute abnormality Liver: Hepatomegaly is seen with the midclavicular line length of 17 cm. Gallbladder and biliary tree: Layering radiodense gallstones are seen. No intra- or extrahepatic bili cordell ductal dilation. Pancreas: Unremarkable, no focal lesions. Spleen: Unremarkable. Adrenals: Unremarkable. Kidneys and ureters: Unremarkable. Bladder: Limited evaluation due to underdistention. Reproductive organs: Unremarkable. Bowel: Status post small bowel resection. Diverticulosis is seen without evidence of diverticulitis. The appendix is normal. Lymph nodes Retroperitoneal: Unremarkable. Mesenteric: Previously noted mesenteric lymphadenopathy is no longer present. Pelvic: Unremarkable. Peritoneum: Normal Vessels: Atherosclerotic calcifications are seen. Abdominal wall: There is an incisional hernia, new from prior exam, containing a loop of bowel. There is no bowel obstruction noted, however there is surrounding edema. There are also multiple tiny supr aumbilical hernias containing only fat. Bones: Unremarkable. IMPRESSION: 1. There is an infraumbilical hernia with a loop of bowel and edema. Although there is no rodrigo obst ruction, early ischemic changes cannot be excluded. 2. Previous seen noted mesenteric lymphadenopathy has resolved. 3. Redemonstration of colonic diverticulosis. 4. Hepatomegaly. 5. Additional findings as above. ACT 112: Negative or not required by law. Electronically signed by: Kartik Griffni M.D. 09/13/2021 7:37 PM
[2021-09-13 20:03] LABS: Troponin I < 0.015 ng/ml (0-0.045)
--- NOTE | 2021-09-13 21:22 | Surgery Consultation ---
Date of Consultation September 13, 2021 Assessment & Plan (1) Ventral hernia: It is recommended that the patient be admitted to the hospital for further evaluation of his hernia. Discussed with the patient that I am the physician assistant therapy aide for Dr. Pro Martin. Due to personal reasons the patient is adamant that he does not wish to receive care from Dr. Martin. I further discussed with the patient that Dr. Martin is the surgeon on-call for this evening and no one else is available. Patient next stated that he would rather be discharged home and accept any adverse consequences as a result of not receiving care this evening. I discussed with the patient that his physical exam is reassuring that he does not have any significant bowel ischemia but I cannot guarantee this and I can also not guarantee he will not have any adverse sequelae if he goes home this evening. I told him adverse sequelae could include but are not limited to nausea or vomiting, worsening pain, or bowel ischemia that could potentially result in sepsis or . He expressed his understanding and did not change his mind about his above decision. After further discussion with the patient he did note that he has been discussing his current situation with his [facility] who felt it would be beneficial to have the patient admitted to the hospital to obtain improved control of his glucose prior to undergoing surgical intervention anyway. That being said I further discussed the case with the treating emergency room physician who says that he will make attempts to have the patient admitted to the hospitalist service and then determine if an alternate surgical service can be consulted on 09/14/2021. I conversed with Dr. Arevalo of the [facility] physician group hospitalist service and he notes that he will admit the patient to the hospital on the basis of improving the patient's diabetes control. He notes that the patient will be reassessed tomorrow to determine if the patient can be discharged home or if surgical intervention is in his best interest and if so a surgical consultation will be placed at that time. History of Present Illness Reason for Consultation: Ventral hernia with possible incarceration History of Present Illness This is a 71-year-old male who presented to [facility] emergency department secondary to abdominal pain. Question patient on his medical history and he notes that in February 2021 he had a partial bowel resection by Dr. Mcginnis at [facility] in [facility] secondary to cancer. Patient says he did not require a colostomy and he was in the hospital proximally 3 days and discharged home after an uneventful hospital course. Patient notes that he did note some burning pain near some of his surgical incisions for several days. He says otherwise he did not have any adverse sequelae from his surgery. Several months after his surgery he noted a bulge near his umbilicus. He notes that this got progressively worse over the ensuing several months. He did note that his recently due to ALS and due to her illness she had several falls requiring him to lift her off the floor which she feels contributed to the bulge near his umbilicus. Patient noted over the past week he has had worsening pain. He contacted his care team at the [facility] and they ordered a CAT scan for tomorrow which was 09/14/2021. The patient notes that the pain got markedly worse today prompting his visit to the emergency department. He specifically denies any nausea vomiting. He denies any fevers, shakes, chills. He notes his last meal was approximately 12:00 PM today and he notes that he had a normal bowel movement today. In the emergency department the patient was noted to be afebrile and hemodynamically stable. He did have labs and imaging which I independently reviewed. His white blood cell count had a slight elevation at 11.4. Hemoglobin, hematocrit, and platelet count were all within normal range. Chemistry profile showed sodium was 132. Potassium, BUN, and creatinine were within the normal range. Patient did not have any elevation of his LFTs or lipase. Cardiac enzymes were checked and were nonelevated. Urinalysis was not indicative of infection. It is no over the mention that the patient was noted to have elevated glucose level with a reading of 426. An EKG was performed that showed the patient had a right bundle branch block but no changes indicative of acute ischemia were noted. The patient also had a CT scan of the abdomen pelvis that showed patient had an infraumbilical incisional hernia which contained a loop of bowel. There is no bowel obstruction noted but there was some surrounding edema. The interpreting radiologist could not exclude ischemia. I discussed with the treating emergency room physician and he notes that when he first evaluated the patient he could feel a slight bulge inferior to the umbilicus that he felt was at least partially reducible. I question the patient about his daily life and he notes he does have a history of coronary artery disease requiring cardiac catheterization with stent placemen t in 2013. He notes that since this time he is able to lead a fairly active lifestyle hiking and hunting. He notes that when he walks upgrades he does get slightly short of breath but this has been stable for several months. He specifically denies any chest pain with his daily activities or walking up steps and inclines. He notes that he is a diabetic and takes Glucophage only. He notes that his sugars seem to have been less well controlled since his abdominal pain began. Concerning his diabetes he says he sees an network/telecom engineer yearly and does not have any significant eye pathology related to this condition and he denies any nonhealing foot wounds. At the time of my interview the patient is resting comfortably in bed. His pain was well controlled and he was in no distress. Allergies Allergy/AdvReac Type Severity Reaction Status Date / Time amoxicillin Allergy Mild RASH Verified 09/13/21 19:37 metoprolol Allergy Mild S.O.B. Verified 09/13/21 19:37 fluticasone AdvReac unknown Verified 09/13/21 19:37 [From Advair Diskus] salmeterol AdvReac unknown Verified 09/13/21 19:37 [From Advair Diskus] Home Medications Medication Instructions Recorded Confirmed Type aspirin 81 mg tablet,delayed 81 mg PO DAILY 12/21/18 09/13/21 History release fluticasone propionate 50 2 spray INTRANASAL DAILY PRN 12/21/18 09/13/21 History mcg/actuation nasal spray,suspension (Flonase Allergy Relief) albuterol sulfate 90 mcg/actuation 2 puff INHALATION Q4 PRN #18 g 02/16/21 09/13/21 Rx aerosol inhaler (ProAir HFA) famotidine 20 mg tablet 20 mg PO BID #60 tab 07/23/21 09/13/21 Rx amlodipine 5 mg tablet 5 mg PO DAILY 09/13/21 09/13/21 History atorvastatin 40 mg tablet 40 mg PO DAILY 09/13/21 09/13/21 History budesonide-formoterol HFA 80 2 puff INHALATION BID 09/13/21 09/13/21 History mcg-4.5 mcg/actuation aerosol inhaler clopidogrel 75 mg tablet 75 mg PO DAILY 09/13/21 09/13/21 History dicyclomine 10 mg capsule 10 mg PO Q6 09/13/21 09/13/21 History escitalopram oxalate 5 mg tablet 10 mg PO DAILY 09/13/21 09/13/21 History metformin 500 mg tablet,extended 1,000 mg PO DAILY 09/13/21 09/13/21 History release 24 hr montelukast 10 mg tablet 10 mg PO DAILY 09/13/21 09/13/21 History multivitamin 1 tab PO DAILY 09/13/21 09/13/21 History semaglutide (Ozempic) 0.25 mg SUBCUT .weekly #1.5 ml 09/13/21 09/13/21 Rx vitamin B complex-vit B12 1 tab PO DAILY 09/13/21 09/13/21 History Patient History Medical History Anxiety Asthma Cancer MELANOMA (WITH EXCISION & CHEMOTHERAPY) Depression Diabetes mellitus, type 2 NIDDM GERD (gastroesophageal reflux disease) Hyperlipidemia Hypertension Malignant melanoma of back Presence of drug-eluting stent in right coronary artery Seasonal allergies Surgical History History of bowel resection History of cardiac cath X1. (2014) [facility]. History of colonoscopy History of heart artery stent X1 STENTS. (2014). TAKES PLAVIX. History of melanoma excision [facility] History of repair of rotator cuff right Family History Sister Diabetes Father Alzheimer disease Mother Pancreatic cancer Denies family history of Colon cancer Ovarian cancer Prostate cancer Myocardial infarction Breast cancer Social History Smoking Status: Never smoker Tobacco Type: Cigarettes Age Started Using Tobacco: 17; Age Quit Using Tobacco: 49; packs per day: 1; Years Smoked: 32; Cigarettes Per Day: 20; Number of Years Since Quit: 20; Second Hand Exposure: No; Hx Alcohol Use: No Hx Substance Use: No Preferred Language: Ugandan Communication Ability: Effective Visual Impairment: No Limitations Hearing Ability: Normal Home Demonstrator Required: No Beliefs That Will Affect Care: None marital status: Current Living Situation: Spouse current occupational status: retired current occupation: retired from [employer] Feels Safe at Home: Yes Childhood Exposure to Second-Hand Smoke: No Dental Care, Regularly: No Physical Activity Frequency: Does not Exercise Seatbelt Use: always Sunscreen Use: No Assistive Devices: Denture - Upper, Denture - Lower and Glasses Review of Systems Constitutional: no fever and no chills Eyes: no diplopia Ear, Nose, Mouth, Throat: no ear pain and no sore throat Respiratory: no cough Cardiovascular: no chest pain Gastrointestinal: + abdominal pain; no nausea, no vomiting, no diarrhea/loose stools and no blood in stools Genitourinary: no dysuria Musculoskeletal: no back pain Integumentary: no rash Neurologic: no localized weakness Physical Exam Constitutional: well developed, well nourished and + obese; no acute distress Eyes: no conjunctival abnormality ENMT: Ears: no external ear abnormality Mouth: no oropharynx abnormality Respiratory: normal respiratory effort; no respiratory distress and no labored breathing Cardiovascular: Rate/Rhythm: regular rate and regular rhythm Gastrointestinal (Abdomen): The patient's abdomen is rotund and soft. Bowel sounds are present. Patient had a well-healed midline incision. There is minimal to no pain with palpation and the patient had no rebound tenderness or guarding. Did not appreciate any fascial defects in the infraumbilical area but exam was limited due to the patient's obesity. Even with deep palpation there is minimal to no pain. No indurated areas or areas of hard lumps. There were no reducible masses at the time of my exam. There is no erythema noted to the surrounding skin. Musculoskeletal: No calf tenderness, no foot wounds Skin: no rashes Neurologic: moves all extremities Results & Data ([facility]) Vital Signs (Past 12 Hours) Vital Signs Temp Pulse Pulse Resp BP BP Pulse Ox 09/13/21 20:00 84 21 93 09/13/21 19:50 85 18 92 09/13/21 19:40 88 19 96 09/13/21 19:30 99 H 16 92 09/13/21 19:23 90 17 96 09/13/21 19:02 87 16 167/95 H 97 09/13/21 17:12 36.7 C 109 H 20 165/102 H 96 PG Care Time/CCT Total # of Minutes Spent Total Time Spent with Patient: Total time spent is greater than 50% in coordination of care (as documented) at patient's floor/unit and/or counseling patient: Coding Level of Care Code 44935 Inpt Consult Level 5 Diagnoses Ventral hernia K43.9
--- NOTE | 2021-09-13 21:44 | History & Physical Report ---
Date of Service September 13, 2021 Assessment & Plan (1) Incarcerated incisional hernia: (2) Ventral hernia: (3) Hyperglycemia: (4) CAD (coronary artery disease): (5) Diabetes mellitus, type 2: (6) Asthma: (7) Hypertension: (8) Hypercalcemia: Plan: 71-year-old M Hx of DM2, CAD, hypertension, hyperlipidemia, asthma, ventral hernia admitted for hyperglycemia and monitoring of reduced ventral hernia. Hyperglycemia, DM2: Patient with a history of type 2 diabetes, with recent A1c of 12.5% on 09/12/21. Patient is currently on Metformin 1000 mg twice daily and was recently started on weekly semaglutide injections. With 1 week of increased thirst, polyuria, and on admission with BSG of 365 after receiving 8 units of regular insulin by ER provider. 1+ ketones in urine; beta hydroxybutyrate level was ordered however was unable to be resulted due to specimen hemolysis. We will give an additional 10 units of regular insulin, followed by basal/bolus insulin. Consider further regular insulin based on repeat blood sugars throughout this evening. Patient received 500cc NSS bolus while in ER. Will give NSS at a rate of 125 cc/hr x 1 bag. N.p.o. for now given hernia; DM2 diet when having p.o. intake. Ventral hernia: Patient with a history of a small ventral hernia since abdominal surgery in February 2021 for colon mass. Presents with 1 week of 2/10 abdominal pain that acutely worsened today. Per ER provider with small ventral hernia that was not reducible. CTAP notable for infraumbilical hernia with a loop of bowel and edema, with remark that while there is no rodrigo obstruction early ischemic changes cannot be excluded. General surgery (Dr. Chucky Parada) consulted and was able to reduce the hernia. On my exam patient's hernia is reduced, without any abdominal pain to palpation and with positive bowel sounds. Patient will need a general surgery consult in the morning to be evaluated for possible intervention during this admission. Patient requests that he be evaluated by a general surgeon other than Dr. Martin due to personal reasons. Patient is aware that he will need to be evaluated sooner if he were to develop any signs of acute abdomen or hernial incarceration. Patient noted to have elevated a mildly elevated white blood cell count on admission though this is in the setting of dehydration; defer antibiotics at this time with repeat CBC in the AM. Will start antibiotics if white blood cell count worsens despite adequate fluid resuscitation or if the patient develops fevers overnight. Hypercalcemia: Patient presents with a corrected calcium of 10.7. Patient does have a history of melanoma status post excision and chemotherapy. 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 Repeat BMP in the a.m. Consider further evaluation if calcium continues to be elevated despite IV hydration. Hypertension, CAD, hyperlipidemia: History of CAD with stent x1. On admission with BP 160s/95882s. Hold home p.o. antihypertensives due to n.p.o. status. Also holding aspirin, Plavix, statin. Resume all medications when no longer n.p.o. Hydralazine 10 mg IV every 6 hours as needed for systolic BP > 180, diastolic BP > 100. Asthma: Continue home inhalers. CODE STATUS: Full code FEN: NPO with NSS 125cc/hr x1 bag; Heart healthy DM2 diet when no longer NPO DVT ppx: SCDs Dispo: Med/Surg with Telemetry History of Present Illness Chief Complaint: abdominal pain, hernia Primary Care Provider: Manolo Morales MD 71-year-old M Hx of DM2, CAD, hypertension, hyperlipidemia, asthma, ventral hernia, colon cancer, melanoma presented to the ER for 1 day of acutely worsening abdominal pain at the area of his ventral hernia. Patient reports that he has had this ventral hernia since his abdominal surgery in February for a colon mass. Over the last week he reports 2/10 abdominal pain in the area of his hernia with a notable bulge: With acute worsening of that abdominal pain over the last 24 hours prompting his visit to the ER. In the ER patient was found to have a hernia that was unable to be reduced by the ER provider. CTAP was performed which showed ventral hernia with bowel within with possible early signs of bowel ischemia. General surgery was consulted and able to reduce the hernia with immediate resolution of abdominal pain. Also of note, patient's lab work notable for WBC count of 11.43, corrected calcium of 10.7, concentrated urine with 1+ ketones. While in the ER patient was also noted to have a significantly elevated BSG in the 400s; patient was given 8 units regular insulin with decrease in BSG to 350s. Patient admits that over the last several days he has had increase in urination and increase in thirst. He recently had his Metformin increased to 1000 mg twice daily and recently had semaglutide weekly injections added to his diabetic regimen. He admits that prior to these changes he was not checking his blood sugars regularly because his blood sugar was "under pretty good control". Allergies Allergy/AdvReac Type Severity Reaction Status Date / Time amoxicillin Allergy Mild RASH Verified 09/13/21 19:37 metoprolol Allergy Mild S.O.B. Verified 09/13/21 19:37 fluticasone AdvReac unknown Verified 09/13/21 19:37 [From Advair Diskus] salmeterol AdvReac unknown Verified 09/13/21 19:37 [From Advair Diskus] Home Medications Medication Instructions Recorded Confirmed Type aspirin 81 mg tablet,delayed 81 mg PO DAILY 12/21/18 09/13/21 History release fluticasone propionate 50 2 spray INTRANASAL DAILY PRN 12/21/18 09/13/21 History mcg/actuation nasal spray,suspension (Flonase Allergy Relief) albuterol sulfate 90 mcg/actuation 2 puff INHALATION Q4 PRN #18 g 02/16/21 09/13/21 Rx aerosol inhaler (ProAir HFA) famotidine 20 mg tablet 20 mg PO BID #60 tab 07/23/21 09/13/21 Rx amlodipine 5 mg tablet 5 mg PO DAILY 09/13/21 09/13/21 History atorvastatin 40 mg tablet 40 mg PO DAILY 09/13/21 09/13/21 History budesonide-formoterol HFA 80 2 puff INHALATION BID 09/13/21 09/13/21 History mcg-4.5 mcg/actuation aerosol inhaler clopidogrel 75 mg tablet 75 mg PO DAILY 09/13/21 09/13/21 History dicyclomine 10 mg capsule 10 mg PO Q6 09/13/21 09/13/21 History escitalopram oxalate 5 mg tablet 10 mg PO DAILY 09/13/21 09/13/21 History metformin 500 mg tablet,extended 1,000 mg PO DAILY 09/13/21 09/13/21 History release 24 hr montelukast 10 mg tablet 10 mg PO DAILY 09/13/21 09/13/21 History multivitamin 1 tab PO DAILY 09/13/21 09/13/21 History semaglutide (Ozempic) 0.25 mg SUBCUT .weekly #1.5 ml 09/13/21 09/13/21 Rx vitamin B complex-vit B12 1 tab PO DAILY 09/13/21 09/13/21 History Past Med/Surg History Medical History (Updated 09/13/21 @ 22:48 by Renetta Ardon DO) Anxiety Asthma Cancer MELANOMA (WITH EXCISION & CHEMOTHERAPY) Depression Diabetes mellitus, type 2 NIDDM GERD (gastroesophageal reflux disease) Hyperlipidemia Hypertension Malignant melanoma of back Presence of drug-eluting stent in right coronary artery Seasonal allergies Surgical History History of bowel resection History of cardiac cath X1. (2013) [facility]. History of colonoscopy History of heart artery stent X1 STENTS. (2013). TAKES PLAVIX. History of melanoma excision [facility] History of repair of rotator cuff right Family History Sister Diabetes Father Alzheimer disease Mother Pancreatic cancer Denies family history of Colon cancer Ovarian cancer Prostate cancer Myocardial infarction Breast cancer Social History Smoking Status: Light tobacco smoker Tobacco Type: Cigarettes Age Started Using Tobacco: 17; Age Quit Using Tobacco: 49; packs per day: 1; Years Smoked: 32; Cigarettes Per Day: 20; Number of Years Since Quit: 20; Second Hand Exposure: No; Do You Dip or Chew Tobacco: No; Tobacco Cessation Education Requested by Patient: No Hx Alcohol Use: No Hx Substance Use: No Preferred Language: Indonesian Communication Ability: Effective Visual Impairment: No Limitations Hearing Ability: Normal Fibreglass Laminator Required: No Beliefs That Will Affect Care: None marital status: Current Living Situation: Alone Current Living Situation Comment: Home in [facility] current occupational status: retired current occupation: retired from [employer] Other Information That Helps Us Care for You: No Feels Safe at Home: Yes Safety Concerns: Feels Safe At This Time Childhood Exposure to Second-Hand Smoke: No Dental Care, Regularly: No Physical Activity Frequency: Does not Exercise Seatbelt Use: always Sunscreen Use: No Assistive Devices: None Review of Systems Review of Systems: All systems reviewed & are unremarkable except as noted in HPI & below ROS based on my personal interview with patient; see HPI for former symptoms Constitutional: no fever, no chills and no malaise Respiratory: no cough and no dyspnea Cardiovascular: no chest pain, no palpitations and no edema Gastrointestinal: no abdominal pain, no constipation and no diarrhea/loose stools Physical Exam Constitutional: WD/WN, vitals as above Eyes: PERRL, conjunctivae normal, anicteric sclerae ENMT: external ear and nose normal, oropharynx normal Neck: normal visual inspection Respiratory: normal respiratory effort, lungs clear to auscultation Cardiovascular: RRR, no murmur, no edema Gastrointestinal (Abdomen): normal bowel sounds, soft, nontender, no hepatosplenomegaly 3x3cm ventral hernia, no mass, reduced Musculoskeletal: no cyanosis or clubbing, extremities motor strength 5/5 Skin: no rashes, warm and dry Neurologic: AAOx3, normal speech. Bilateral UE, LE, and face without sensory or motor deficits. No tremor. Psychiatric: A+Ox3, euthymic affect Results & Data Results & Data ([facility]) Vital Signs (Past 12 Hours) Vital Signs Temp Pulse Pulse Resp BP BP Pulse Ox 09/13/21 20:00 84 21 93 09/13/21 19:50 85 18 92 09/13/21 19:40 88 19 96 09/13/21 19:30 99 H 16 92 09/13/21 19:23 90 17 96 09/13/21 19:02 87 16 167/95 H 97 09/13/21 17:12 36.7 C 109 H 20 165/102 H 96 Supervising Physician Co-Signing Physician Notes Attending addendum: I have physically seen this patient, have supervised the medical residents activities, and agree with the H&P unless as otherwise noted. Assessment and Plan: Incarcerated incisional hernia/ventral hernia- Decompressed by surgical service in the ED Admit for observation overnight for possible recurrence Consult surgery to see in a.m. as noted N.p.o. overnight except essential medications No need for IV antibiotics at this time IV fluids as noted Repeat laboratories in a.m. Remaining orders and notations as noted Resident Activity Tracking Resident Involvement: Resident Care Provided Care Provided: [facility]
[2021-09-13] MEDS ORDERED: INSULIN HUMAN REGULAR SC STA (22:05)
[2021-09-13] MEDS ORDERED: SODIUM CHLORIDE 0.9% 1000ML 1,000 ML IV SCH (22:05)
[2021-09-13] MEDS ORDERED: NovoLIN-R INSULIN PER UNIT CHARGE ONE (22:09)
[2021-09-13] MEDS: INSULIN GLARGINE SOLOSTAR 100 UNITS/ML 3 ML PEN SC SCH (22:47)
[2021-09-14] MEDS ORDERED: DEXTROSE 50% 50 ML SYRINGE IV PRN (01:43)
[2021-09-14] MEDS ORDERED: ONDANSETRON INJ 2 MG/ML 2 ML VIAL IV PRN (01:43)
[2021-09-14] MEDS ORDERED: hydrALAZINE HCL 20 MG/ML VIAL IV PRN (01:43)
[2021-09-14] MEDS ORDERED: GLUCOSE 10 TABS/TUBE PO PRN (01:43)
[2021-09-14] MEDS ORDERED: GLUCOSE 40% GEL 15 GM TUBE PO PRN (01:43)
[2021-09-14] MEDS ORDERED: ACETAMINOPHEN 1000 MG/100 ML IV IV PRN (01:43)
[2021-09-14] MEDS ORDERED: FLUTICASONE PROPIONATE NA SPR 16 GM BTL PRN (01:43)
[2021-09-14] MEDS ORDERED: GLUCAGON FOR INJ 1 MG VIAL SQ PRN (01:43)
[2021-09-14] MEDS ORDERED: CARBOHYDRATES FOR HYPOGLYCEMIA PO PRN (01:43)
[2021-09-14] MEDS ORDERED: ALBUTEROL HFA 8 GM INHALER INH PRN (02:13)
[2021-09-14 04:40] LABS: Basophils # (auto) 0.01 K/uL (0-0.2); Basophils % (auto) 0.1 %; Eosinophils # (auto) 0.24 K/uL (0-0.5); Eosinophils % (auto) 3.1 %; Hematocrit (blood only) 40.9 % (42-52); Hemoglobin 13.9 g/dL (14.0-18.0); Immature Granulocytes # (auto) 0.01 K/uL (0.00-0.02); Immature Granulocytes % (auto) 0.1 %; Lymphocytes # (auto) 2.62 K/uL (1.2-3.4); Lymphocytes % (auto) 33.4 %; Mean Corpuscular Hemoglobin 28.5 pg (25-34); Monocytes # (auto) 0.53 K/uL (0.11-0.59); Monocytes % (auto) 6.8 %; Neutrophils # (auto) 4.43 K/uL (1.4-6.5); Neutrophils % (auto) 56.5 %; Platelet Count 273 K/uL (130-400); RDW Coefficient of Variation 13.2 % (11.5-14.5); RDW Standard Deviation 39.7 fL (36.4-46.3); Red Blood Count 4.87 M/uL (4.7-6.1); White Blood Count 7.84 K/uL (4.8-10.8)
[2021-09-14 05:18] LABS: Albumin Globulin Ratio 0.9 (0.9-2); Albumin Level 2.9 gm/dl (3.4-5.0); BUN Creatinine Ratio 11.8 (10-20); Bilirubin,Total 0.4 mg/dl (0.2-1); Calcium 8.8 mg/dl (8.5-10.1); Creatinine Clr Calc Pharmacy 85.4 ml/min; Est GFR (African American) 105.1 ml/min; Est GFR (Non-African American) 90.7 ml/min; Globulin 3.4 gm/dl (2.5-4.0); Total Protein 6.3 gm/dl (6.4-8.2)
[2021-09-14 07:18] LABS: Potassium 3.7 mmol/L (3.5-5.1)
--- NOTE | 2021-09-14 08:11 | Hospitalist Progress Note ---
Date of Service September 14, 2021 Assessment & Plan (1) Hypercalcemia: (2) Diabetes mellitus, type 2: (3) Ventral hernia: (4) Hyperglycemia: (5) CAD (coronary artery disease): (6) Hypertension: (7) Hyperlipidemia: (8) Asthma: Plan: 71-year-old M Hx of DM2, CAD, hypertension, hyperlipidemia, asthma, ventral hernia admitted for hyperglycemia and monitoring of reduced ventral hernia. Hyperglycemia, DM2: - Patient with a history of type 2 diabetes, with recent A1c of 12.5% on 09/12/21. - Patient is currently on Metformin 1000 mg daily and was recently set to be started on weekly semaglutide injections, but ultimately never did start the latter - He has not tolarated higher doses of metformin due to GI discomfort/diarrhea - Received 8U of regular insulin in ED and then 10U on admission - Discussed starting insulin as he reports no big changes in his diet recently and no medication noncompliance - Consult music educator - Will watch overnight to establish 24h of insulin needs and calculate his insulin requirement for home Ventral hernia: Patient with a history of a small ventral hernia since abdominal surgery in February 2021 for colon mass. Presents with 1 week of 2/10 abdominal pain that acutely worsened today. CTAP notable for infraumbilical hernia with a loop of bowel and edema, with remark that while there is no rodrigo obstruction early ischemic changes cannot be excluded. - General surgery (Chucky Parada PA-C) consulted and was able to reduce the hernia -- patient requested for personal reasons not to see the on-call General Surgery attending physician overnight - General surgery (Dr. Rivera) was consulted this AM: - Has multiple hernias, one incarcerated has now been reduced. Discussed elective hernia repair and advised followup with surgery as an outpatient. - Has already been in contact with the [facility] who have referred him to hernia specialists in [place] Hypercalcemia: - Patient presented with a corrected calcium of 10.7. - Patient does have a history of melanoma status post excision and chemotherapy. 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 - Improved with IV hydration Hypertension, CAD, hyperlipidemia: - History of CAD with stent x1. - On admission with BP 160s/78258u. - Home amlodipine, atorvastatin, clopidogrel, aspirin Asthma: - Continue home inhalers. CODE STATUS: Full code FEN: Heart healthy DM2 diet DVT ppx: Lovenox Dispo: Med/Surg with Telemetry Admission and Anticipated Discharge Date Admission Date: September 13, 2021 Supervising Physician Co-Signing Physician Notes Patient seen and examined, chart reviewed, case discussed with Dr. Dedrick Trevino and I agree with the assessment and plan as above except as otherwise noted General: A&Ox3. NAD. Cooperative. HEENT: Atraumatic, normocephalic. Pulm: CTAB A&P. -wheezes, -rales, -rhonchi. Symmetrical chest rise. No increase work of breathing. No respiratory distress. Cardiac: RRR, -mrg. Radial pulses intact and symmetrical. Abdominal: Nontender, nondistended, soft. All labs and images reviewed Ventral hernia: Successfully reduced by surgical PA. Urgent surgical correction not recommended at this time, seen by Dr. Rivera today. Recommend optimization of diabetes and follow-up with hernia specialist. Patient has already contacted the [facility], this is being arranged at [place] for outpatient follow-up. Type 2 diabetes mellitus: Patient with uncontrolled type 2 diabetes mellitus with A1c 12.5 from last known approximate 7.2. His glucose on admission was greater than 400. 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 Was going to start semaglutide injections but has not yet done this as was told to hold off until his hernias were addressed by his outpatient provider. He does not report a substantial change from a year ago to now in his diet, nurses educator consulted and on further discussion patient does recognize that there is room for improvement. Notes that he does drink orange juice and snacks in jellybean/candy bar since his passed in June which may explain some of his change. He is not comfortable attempting basal/bolus insulin at this time, but is comfortable starting basal insulin, maximizing his noninsulin antiglycemic's, and making dietary interventions with close PCP follow-up at this time. Will watch overnight to establish approximate 24-hour insulin needs as was uncontrolled on presentation requiring multiple doses of IV medication. Anticipate discharge tomorrow on glargine, Metformin, and semaglutide. Semaglutide 0.25 mg subcu for 4 weeks before increasing to 0.5 mg.Patient has supraumbilical hernias, fat-containing, and an incisional hernia. Patient has taken multiple subcutaneous medications in the past with no difficulty, and is comfortable injecting antiglycemic subcu medications laterally. In addition to separately billable time an additional 35 minutes was spent on counseling the patient, review of insulin requirements, and determination of an antiglycemic plan moving forward. Subjective Seen at bedside. Laying in bed comfortably. Denies abd pain at this time since hernia was reduced overnight. No f/c, n/v, abd pain, CP, SOB, ABEBE, dzziness. In the afternoon, we discussed his diabetes. He is aware that his current A1c points to a significant lack of diabetes control. He mentions that there have been no big changes in his diet. He has been on the metformin for quite some time and attempts have been made to maximize his dosing but he has not tolerated due to GI discomfort/diarrhea. Recently, he was prescribed Ozempic 0.25 mg injections weekly, however, he was never able to start this regimen as [facility] recommended against it due to the possibility of injecting into one of his multiple hernias. We discussed that with his current A1c he would likely require Ozempic plus an additional medication versus starting insulin and he expressed being open to the latter if it was recommended by us. He was open to seeing a music educator and remaining with us overnight to establish his insulin needs and possibly discharging tomorrow with insulin for home. Review of Systems Review of Systems: per subjective Physical Exam Physical Exam: GENERAL: A&Ox3. NAD. CHEST/LUNGS: CTAB A/P. No crackles, wheezes, rales, rhonchi. HEART: RRR. No m/g/r. ABDOMEN: NT/ND, soft. BS+ x4. Midline abdominal scar noted. Reducible hernia at umbilicus. EXTREMITIES: No cyanosis, no clubbing, no edema. SKIN: Warm and dry. No rashes or lesions. PSYCHIATRIC: Euthymic affect, no SI, no pressured speech, no hallucinations NEUROLOGIC: No FND. CN II-XII grossly intact. Results & Data Results & Data ([facility]) Vital Signs (Past 12 Hours) Vital Signs Temp Pulse Pulse Resp BP Pulse Ox Pulse Ox 09/14/21 06:32 82 19 144/87 H 93 09/14/21 04:00 94 H 18 144/87 H 91 09/14/21 02:02 92 09/14/21 02:00 79 15 128/67 92 09/14/21 00:00 87 16 138/80 93 09/13/21 22:26 37.1 C 88 18 107/95 93 09/13/21 21:46 100 H 20 92 09/13/21 21:40 98 H 21 92 09/13/21 21:30 99 H 23 94 09/13/21 21:20 103 H 24 95 09/13/21 21:10 99 H 20 92 09/13/21 21:00 98 H 21 91 09/13/21 20:50 99 H 27 H 95 09/13/21 20:40 104 H 25 H 96 09/13/21 20:30 95 H 16 92 09/13/21 20:20 98 H 17 92 Resident Activity Tracking Resident Involvement: Resident Care Provided Care Provided: Adult Hospital Medicine
[2021-09-14] MEDS: INSULIN ASPART PER UNIT SC SCH ×4 (09:11→21:03)
[2021-09-14] MEDS: FLUTICASONE/VILANTEROL 100/25MCG 14 PUFFS/INHALER INH SCH (10:22)
[2021-09-14] MEDS: INSULIN GLARGINE SOLOSTAR 100 UNITS/ML 3 ML PEN SC SCH ×2 (10:42→21:03)
--- NOTE | 2021-09-14 12:28 | Surgery Consultation ---
Date of Consultation September 14, 2021 Assessment & Plan (1) Incarcerated incisional hernia: (2) Hyperglycemia: (3) CAD (coronary artery disease): (4) Diabetes mellitus, type 2: 71 year-old male presented to ED with increasing abdominal pain associated with bulge at belly button. CT Scan showed incarcerated infraumbilical hernia containing small bowel without any signs of obstruction. This hernia was reduced on examination by Melquiades Messina PA-C last evening. Since reduction he has no abdominal pain, nausea, vomiting, leukocytosis and abdominal examination is completely benign with reducible hernia. CT scan also showing multiple small incisional supraumbilical hernias containing fat. He was admitted for hyperglycemia with glucose in 400's. Plan: Discussed with patient that since hernia was able to be reduced, his labs show no leukocytosis, his abdominal examination is benign and hernia is reducible, would not recommend urgent surgical correction at this time given his hyperglycemia and last dose of Plavix being yesterday prior to presenting to ED. CT scan also shows multiple small incisional hernias, therefore consultation with hernia specialist for multiple hernia repair may be beneficial. He could follow with [facility] hernia specialist or the [place] for this. Advised to monitor for any signs of incarceration again and present to emergency room. He was also advised to avoid heavy lifting and strenuous activity. Our services signing off, thank you for consultation Dr. Rivera has seen and examined patient, discussed above with patient. See addendum for additional recommendations. Supervising Physician Co-Signing Physician Notes Pt was personally seen and examined. CT scan reviewed. Has multiple hernias, one incarcerated has now been reduced. Discussed elective hernia repair and advised followup with surgery as an outpatient. Will be admitted to medicine for hyperglycemia. No need for surgical followup during this hospital stay - will sign off. Thank you. History of Present Illness Reason for Consultation: incisional hernia Requesting Physician: Juan A Macdonald MD Attending Physician: Vlad Ruelas MD History of Present Illness Reese is a 71 year-old male who presented to emergency department with abdominal pain that started about 1 week ago with a noticeable bulge at his belly button. Pain increased in severity and he presented to emergency room for evaluation. CT scan showed infraumbilical hernia containing small bowel. He was evaluated in the ED by Melquiades Messina PA-C last evening and the hernia was reduced. He was admitted by the medicine team given hyperglycemia with glucose in the 400's. Our services consulted for discussion of hernia repair and if needed during this admission. In review of his records he had an exploratory laparotomy with small bowel and small bowel mesentery resection in February [address] 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 He states he did not require any further treatment after surgery. Has history of Melanoma of his back 5 years ago and required chemotherapy. He also has history of CAD with stent placement x 1 in 2013 and on Plavix. Since last evening and since hernia has been reduced he has had no abdominal pain. No nausea or vomiting. Tolerating water without abdominal pain. Blood sugar has improved to 160 today. [facility] was [facility] a [facility] and then discussion of surgery for this hernia after his blood sugar was better controlled. Allergies Allergy/AdvReac Type Severity Reaction Status Date / Time amoxicillin Allergy Mild RASH Verified 09/13/21 19:37 metoprolol Allergy Mild S.O.B. Verified 09/13/21 19:37 fluticasone AdvReac unknown Verified 09/13/21 19:37 [From Advair Diskus] salmeterol AdvReac unknown Verified 09/13/21 19:37 [From Advair Diskus] Home Medications Medication Instructions Recorded Confirmed Type aspirin 81 mg tablet,delayed 81 mg PO DAILY 12/21/18 09/13/21 History release fluticasone propionate 50 2 spray INTRANASAL DAILY PRN 12/21/18 09/13/21 History mcg/actuation nasal spray,suspension (Flonase Allergy Relief) albuterol sulfate 90 mcg/actuation 2 puff INHALATION Q4 PRN #18 g 02/16/21 09/13/21 Rx aerosol inhaler (ProAir HFA) famotidine 20 mg tablet 20 mg PO BID #60 tab 07/23/21 09/13/21 Rx amlodipine 5 mg tablet 5 mg PO DAILY 09/13/21 09/13/21 History atorvastatin 40 mg tablet 40 mg PO DAILY 09/13/21 09/13/21 History budesonide-formoterol HFA 80 2 puff INHALATION BID 09/13/21 09/13/21 History mcg-4.5 mcg/actuation aerosol inhaler clopidogrel 75 mg tablet 75 mg PO DAILY 09/13/21 09/13/21 History dicyclomine 10 mg capsule 10 mg PO Q6 09/13/21 09/13/21 History escitalopram oxalate 5 mg tablet 10 mg PO DAILY 09/13/21 09/13/21 History metformin 500 mg tablet,extended 1,000 mg PO DAILY 09/13/21 09/13/21 History release 24 hr montelukast 10 mg tablet 10 mg PO DAILY 09/13/21 09/13/21 History multivitamin 1 tab PO DAILY 09/13/21 09/13/21 History semaglutide (Ozempic) 0.25 mg SUBCUT .weekly #1.5 ml 09/13/21 09/13/21 Rx vitamin B complex-vit B12 1 tab PO DAILY 09/13/21 09/13/21 History Patient History Medical History (Updated 09/13/21 @ 22:48 by Renetta Ardon DO) Anxiety Asthma Cancer MELANOMA (WITH EXCISION & CHEMOTHERAPY) Depression Diabetes mellitus, type 2 NIDDM GERD (gastroesophageal reflux disease) Hyperlipidemia Hypertension Malignant melanoma of back Presence of drug-eluting stent in right coronary artery Seasonal allergies Surgical History History of bowel resection History of cardiac cath X1. (2013) [facility] [place]. History of colonoscopy History of heart artery stent X1 STENTS. (2013). TAKES PLAVIX. History of melanoma excision History of repair of rotator cuff right Family History Sister Diabetes Father Alzheimer disease Mother Pancreatic cancer Denies family history of Colon cancer Ovarian cancer Prostate cancer Myocardial infarction Breast cancer Social History Smoking Status: Light tobacco smoker Tobacco Type: Cigarettes Age Started Using Tobacco: 17; Age Quit Using Tobacco: 49; packs per day: 1; Years Smoked: 32; Cigarettes Per Day: 20; Number of Years Since Quit: 20; Second Hand Exposure: No; Do You Dip or Chew Tobacco: No; Tobacco Cessation Education Requested by Patient: No Hx Alcohol Use: No Hx Substance Use: No Preferred Language: [place] Citizen Communication Ability: Effective Visual Impairment: No Limitations Hearing Ability: Normal Field Spec Required: No Beliefs That Will Affect Care: None marital status: Current Living Situation: Alone Current Living Situation Comment: [place] current occupational status: retired current occupation: retired from [employer] Other Information That Helps Us Care for You: No Feels Safe at Home: Yes Safety Concerns: Feels Safe At This Time Childhood Exposure to Second-Hand Smoke: No Dental Care, Regularly: No Physical Activity Frequency: Does not Exercise Seatbelt Use: always Sunscreen Use: No Assistive Devices: None Review of Systems Constitutional: no fever Cardiovascular: no chest pain and no dyspnea Gastrointestinal: no abdominal pain, no nausea, no vomiting, no change in stools and no blood in stools Genitourinary: no dysuria or no hematuria Physical Exam Constitutional: WD/WN, vitals as above + overweight; no acute distress and not ill appearing Respiratory: normal respiratory effort; no respiratory distress Gastrointestinal (Abdomen): Inspection/Auscultation: abdomen normal to inspection, + abdominal surgical scar (midline laparotomy scar) and + hypoactive bowel sounds; abdomen not distended Percussion/Palpation: + hernia (umbicical hernia reducible) Skin: no rashes, warm and dry Psychiatric: A+Ox3, euthymic affect Results & Data ([facility]) Vital Signs (Past 12 Hours) Vital Signs Temp Pulse Resp BP Pulse Ox Pulse Ox 09/14/21 11:51 36.4 C L 76 18 141/87 H 95 09/14/21 07:30 36.9 C 76 20 150/78 H 96 09/14/21 06:32 82 19 144/87 H 93 09/14/21 04:00 94 H 18 144/87 H 91 09/14/21 02:02 92 09/14/21 02:00 79 15 128/67 92 Laboratory Results 09/14/21 09/14/21 09/14/21 Range/Units 08:46 06:38 04:18 WBC (4.8-10.8) K/uL RBC (4.7-6.1) M/uL Hgb (14.0-18.0) g/dL Hct (42-52) % MCV (80-100) fL MCH (25-34) pg MCHC (32-36) g/dL RDW Std Deviation (36.4-46.3) fL RDW Coeff of Netta (11.5-14.5) % Plt Count (130-400) K/uL MPV (7.4-10.4) fL Immature Gran % (Auto) % Neut % (Auto) % Lymph % (Auto) % [place] % (Auto) % Eos % (Auto) % Baso % (Auto) % Neut # (Auto) (1.4-6.5) K/uL Lymph # (Auto) (1.2-3.4) K/uL [place] # (Auto) (0.11-0.59) K/uL Eos # (Auto) (0-0.5) K/uL Baso # (Auto) (0-0.2) K/uL Immature Gran # (Auto) (0.00-0.02) K/uL Sodium 137 (136-145) mmol/L Potassium 3.7 D (3.5-5.1) mmol/L Chloride 107 (98-107) mmol/L Carbon Dioxide 26 (21-32) mmol/L Anion Gap 4.0 (3-11) BUN 9 (7-18) mg/dl Creatinine 0.77 D (0.6-1.4) mg/dl Est Cr Clr Drug Dosing 85.4 ml/min Est GFR ( Amer) 105.1 ml/min Est GFR (Non-Af Amer) 90.7 ml/min BUN/Creatinine Ratio 11.8 (10-20) Glucose 160 H (70-99) mg/dl POC Glucose 193 H (70-99) mg/dl Calcium 8.8 D (8.5-10.1) mg/dl Total Bilirubin 0.4 (0.2-1) mg/dl AST 17 (15-37) U/L ALT 27 (12-78) Alkaline Phosphatase 81 (45-117) U/L Troponin I (0-0.045) ng/ml Total Protein 6.3 L D (6.4-8.2) gm/dl Albumin 2.9 L (3.4-5.0) gm/dl Globulin 3.4 (2.5-4.0) gm/dl Albumin/Globulin Ratio 0.9 (0.9-2) Lipase (73-393) U/L Beta-Hydroxybutyric Acd (0.2-2.81) mg/dl Urine Color Urine Appearance (Clear) Urine pH (4.5-7.5) Ur Specific [place] (1.000-1.030) Urine Protein (Negative) Urine Glucose (UA) (Negative) Urine Ketones (Negative) Urine Blood (Negative) Urine Nitrite (Negative) Urine Bilirubin (Negative) Urine Urobilinogen (Negative) Ur Leukocyte Esterase (Negative) Urine WBC (Auto) (0-5) /hpf Urine RBC (Auto) (0-4) /hpf U Hyaline Cast (Auto) (0-5) /lpf U Epithel Cells (Auto) (0-5) /lpf Urine Bacteria (Auto) (Negative) SARS-CoV-2, RNA, NAAT (NEGATIVE) 09/14/21 09/13/21 09/13/21 Range/Units 04:18 23:52 20:35 WBC 7.84 (4.8-10.8) K/uL RBC 4.87 (4.7-6.1) M/uL Hgb 13.9 L (14.0-18.0) g/dL Hct 40.9 L (42-52) % MCV 84.0 (80-100) fL MCH 28.5 (25-34) pg MCHC 34.0 (32-36) g/dL RDW Std Deviation 39.7 (36.4-46.3) fL RDW Coeff of Netta 13.2 (11.5-14.5) % Plt Count 273 (130-400) K/uL MPV 10.0 (7.4-10.4) fL Immature Gran % (Auto) 0.1 % Neut % (Auto) 56.5 % Lymph % (Auto) 33.4 % [place] % (Auto) 6.8 % Eos % (Auto) 3.1 % Baso % (Auto) 0.1 % Neut # (Auto) 4.43 (1.4-6.5) K/uL Lymph # (Auto) 2.62 (1.2-3.4) K/uL [place] # (Auto) 0.53 (0.11-0.59) K/uL Eos # (Auto) 0.24 (0-0.5) K/uL Baso # (Auto) 0.01 (0-0.2) K/uL Immature Gran # (Auto) 0.01 (0.00-0.02) K/uL Sodium (136-145) mmol/L Potassium (3.5-5.1) mmol/L Chloride (98-107) mmol/L Carbon Dioxide (21-32) mmol/L Anion Gap (3-11) BUN (7-18) mg/dl Creatinine (0.6-1.4) mg/dl Est Cr Clr Drug Dosing ml/min Est GFR ( Amer) ml/min Est GFR (Non-Af Amer) ml/min BUN/Creatinine Ratio (10-20) Glucose (70-99) mg/dl POC Glucose 181 H (70-99) mg/dl Calcium (8.5-10.1) mg/dl Total Bilirubin (0.2-1) mg/dl AST (15-37) U/L ALT (12-78) Alkaline Phosphatase (45-117) U/L Troponin I (0-0.045) ng/ml Total Protein (6.4-8.2) gm/dl Albumin (3.4-5.0) gm/dl Globulin (2.5-4.0) gm/dl Albumin/Globulin Ratio (0.9-2) Lipase (73-393) U/L Beta-Hydroxybutyric Acd (0.2-2.81) mg/dl Urine Color Urine Appearance (Clear) Urine pH (4.5-7.5) Ur Specific [place] (1.000-1.030) Urine Protein (Negative) Urine Glucose (UA) (Negative) Urine Ketones (Negative) Urine Blood (Negative) Urine Nitrite (Negative) Urine Bilirubin (Negative) Urine Urobilinogen (Negative) Ur Leukocyte Esterase (Negative) Urine WBC (Auto) (0-5) /hpf Urine RBC (Auto) (0-4) /hpf U Hyaline Cast (Auto) (0-5) /lpf U Epithel Cells (Auto) (0-5) /lpf Urine Bacteria (Auto) (Negative) SARS-CoV-2, RNA, NAAT NEGATIVE (NEGATIVE) 09/13/21 09/13/21 09/13/21 Range/Units 20:08 18:45 18:23 WBC (4.8-10.8) K/uL RBC (4.7-6.1) M/uL Hgb (14.0-18.0) g/dL Hct (42-52) % MCV (80-100) fL MCH (25-34) pg MCHC (32-36) g/dL RDW Std Deviation (36.4-46.3) fL RDW Coeff of Netta (11.5-14.5) % Plt Count (130-400) K/uL MPV (7.4-10.4) fL Immature Gran % (Auto) % Neut % (Auto) % Lymph % (Auto) % [place] % (Auto) % Eos % (Auto) % Baso % (Auto) % Neut # (Auto) (1.4-6.5) K/uL Lymph # (Auto) (1.2-3.4) K/uL [place] # (Auto) (0.11-0.59) K/uL Eos # (Auto) (0-0.5) K/uL Baso # (Auto) (0-0.2) K/uL Immature Gran # (Auto) (0.00-0.02) K/uL Sodium 132 L (136-145) mmol/L Potassium 4.7 D (3.5-5.1) mmol/L Chloride 98 (98-107) mmol/L Carbon Dioxide 28 (21-32) mmol/L Anion Gap 6.0 (3-11) BUN 13 (7-18) mg/dl Creatinine 1.09 (0.6-1.4) mg/dl Est Cr Clr Drug Dosing 60.4 ml/min Est GFR ( Amer) 78.2 ml/min Est GFR (Non-Af Amer) 67.5 ml/min BUN/Creatinine Ratio 11.6 (10-20) Glucose 426 H* (70-99) mg/dl POC Glucose 365 H* (70-99) mg/dl Calcium 10.5 H (8.5-10.1) mg/dl Total Bilirubin 0.3 (0.2-1) mg/dl AST 24 (15-37) U/L ALT 35 (12-78) Alkaline Phosphatase 107 (45-117) U/L Troponin I < 0.015 (0-0.045) ng/ml Total Protein 8.2 (6.4-8.2) gm/dl Albumin 3.7 (3.4-5.0) gm/dl Globulin 4.5 H (2.5-4.0) gm/dl Albumin/Globulin Ratio 0.8 L (0.9-2) Lipase 220 (73-393) U/L Beta-Hydroxybutyric Acd (0.2-2.81) mg/dl Urine Color Yellow Urine Appearance Clear (Clear) Urine pH 8.0 H (4.5-7.5) Ur Specific [place] 1.039 H (1.000-1.030) Urine Protein Negative (Negative) Urine Glucose (UA) 3+ H (Negative) Urine Ketones 1+ H (Negative) Urine Blood Trace H (Negative) Urine Nitrite Negative (Negative) Urine Bilirubin Negative (Negative) Urine Urobilinogen Negative (Negative) Ur Leukocyte Esterase Negative (Negative) Urine WBC (Auto) 0 (0-5) /hpf Urine RBC (Auto) 5-10 H (0-4) /hpf U Hyaline Cast (Auto) 0 (0-5) /lpf U Epithel Cells (Auto) 0-5 (0-5) /lpf Urine Bacteria (Auto) Negative (Negative) SARS-CoV-2, RNA, NAAT (NEGATIVE) 09/13/21 Range/Units 18:23 WBC 11.43 H (4.8-10.8) K/uL RBC 5.52 (4.7-6.1) M/uL Hgb 16.1 (14.0-18.0) g/dL Hct 46.4 (42-52) % MCV 84.1 (80-100) fL MCH 29.2 (25-34) pg MCHC 34.7 (32-36) g/dL RDW Std Deviation 40.1 (36.4-46.3) fL RDW Coeff of Netta 13.1 (11.5-14.5) % Plt Count 381 (130-400) K/uL MPV 10.1 (7.4-10.4) fL Immature Gran % (Auto) 0.2 % Neut % (Auto) 69.7 % Lymph % (Auto) 22.9 % [place] % (Auto) 5.6 % Eos % (Auto) 1.3 % Baso % (Auto) 0.3 % Neut # (Auto) 7.97 H (1.4-6.5) K/uL Lymph # (Auto) 2.62 (1.2-3.4) K/uL [place] # (Auto) 0.64 H (0.11-0.59) K/uL Eos # (Auto) 0.15 (0-0.5) K/uL Baso # (Auto) 0.03 (0-0.2) K/uL Immature Gran # (Auto) 0.02 (0.00-0.02) K/uL Sodium (136-145) mmol/L Potassium (3.5-5.1) mmol/L Chloride (98-107) mmol/L Carbon Dioxide (21-32) mmol/L Anion Gap (3-11) BUN (7-18) mg/dl Creatinine (0.6-1.4) mg/dl Est Cr Clr Drug Dosing ml/min Est GFR ( Amer) ml/min Est GFR (Non-Af Amer) ml/min BUN/Creatinine Ratio (10-20) Glucose (70-99) mg/dl POC Glucose (70-99) mg/dl Calcium (8.5-10.1) mg/dl Total Bilirubin (0.2-1) mg/dl AST (15-37) U/L ALT (12-78) Alkaline Phosphatase (45-117) U/L Troponin I (0-0.045) ng/ml Total Protein (6.4-8.2) gm/dl Albumin (3.4-5.0) gm/dl Globulin (2.5-4.0) gm/dl Albumin/Globulin Ratio (0.9-2) Lipase (73-393) U/L Beta-Hydroxybutyric Acd (0.2-2.81) mg/dl Urine Color Urine Appearance (Clear) Urine pH (4.5-7.5) Ur Specific [place] (1.000-1.030) Urine Protein (Negative) Urine Glucose (UA) (Negative) Urine Ketones (Negative) Urine Blood (Negative) Urine Nitrite (Negative) Urine Bilirubin (Negative) Urine Urobilinogen (Negative) Ur Leukocyte Esterase (Negative) Urine WBC (Auto) (0-5) /hpf Urine RBC (Auto) (0-4) /hpf U Hyaline Cast (Auto) (0-5) /lpf U Epithel Cells (Auto) (0-5) /lpf Urine Bacteria (Auto) (Negative) SARS-CoV-2, RNA, NAAT (NEGATIVE) Diagnostic Findings CT abd pelvis IV con only CLINICAL HISTORY: periumbilical pain TECHNIQUE: Helical axial images of the abdomen and pelvis were obtained and displayed. Automated dose lowering techniques and/or adjustment according to patient size were utilized for this exam. This exam was performed with intravenous contrast. COMPARISON: Comparison is made to CT abdomen pelvis 10/25/2020 FINDINGS: Lower chest: No acute abnormality Liver: Hepatomegaly is seen with the midclavicular line length of 17 cm. Gallbladder and biliary tree: Layering radiodense gallstones are seen. No intra- or extrahepatic biliary ductal dilation. Pancreas: Unremarkable, no focal lesions. Spleen: Unremarkable. Adrenals: Unremarkable. Kidneys and ureters: Unremarkable. Bladder: Limited evaluation due to underdistention. Reproductive organs: Unremarkable. Bowel: Status post small bowel resection. Diverticulosis is seen without evidence of diverticulitis. The appendix is normal. Lymph nodes Retroperitoneal: Unremarkable. Mesenteric: Previously noted mesenteric lymphadenopathy is no longer present. Pelvic: Unremarkable. Peritoneum: Normal Vessels: Atherosclerotic calcifications are seen. Abdominal wall: There is an incisional hernia, new from prior exam, containing a loop of bowel. There is no bowel obstruction noted, however there is surrounding edema. There are also multiple tiny supraumbilical hernias containing only fat. Bones: Unremarkable. IMPRESSION: 1. There is an infraumbilical hernia with a loop of bowel and edema. Although there is no rodrigo obstruction, early ischemic changes cannot be excluded. 2. Previous seen noted mesenteric lymphadenopathy has resolved. 3. Redemonstration of colonic diverticulosis. 4. Hepatomegaly. 5. Additional findings as above.
--- NOTE | 2021-09-14 16:12 | Electrocardiogram Report ---
Test Reason : Blood Pressure : / mmHG Vent. Rate : 097 BPM Atrial Rate : 097 BPM P-R Int : 140 ms QRS Dur : 122 ms QT Int : 360 ms P-R-T Axes : 024 -02 037 degrees QTc Int : 457 ms Normal sinus rhythm Right bundle branch block Abnormal ECG When compared with ECG of 02-SEP-2014 21:48, Right bundle branch block is now Present Criteria for Inferior infarct are no longer Present Confirmed by Madhu Lee ([id number]) on 09/14/2021 4:12:14 PM Referred By: REFERRED SELF Confirmed By:Madhu Lee
--- NOTE | 2021-09-14 17:52 | Billing Data ---
Date of Service September 14, 2021 Coding Level of Care Code 93657 Subseq Hosp Care Lvl 2
--- NOTE | 2021-09-14 17:52 | Billing Data ---
Date of Service September 14, 2021 Coding Level of Care Code 36758 Prolonged Care (int'l)
[2021-09-14] MEDS: DICYCLOMINE HCL 10 MG CAP PO SCH ×2 (18:36→23:34)
[2021-09-14] MEDS: FAMOTIDINE 20 MG TAB PO SCH (21:03)
--- NOTE | 2021-09-15 02:53 | Billing Data ---
Date of Service September 15, 2021 Coding Level of Care Code INT OBSERVATION CARE 70M LVL 3
[2021-09-15 06:33] LABS: Basophils # (auto) 0.03 K/uL (0-0.2); Basophils % (auto) 0.4 %; Eosinophils # (auto) 0.25 K/uL (0-0.5); Eosinophils % (auto) 3.6 %; Hematocrit (blood only) 43.3 % (42-52); Hemoglobin 14.7 g/dL (14.0-18.0); Immature Granulocytes # (auto) 0.01 K/uL (0.00-0.02); Immature Granulocytes % (auto) 0.1 %; Lymphocytes % (auto) 35.7 %; Mean Corpuscular Hemoglobin 28.5 pg (25-34); Mean Corpuscular Hgb Conc 33.9 g/dL (32-36); Mean Corpuscular Volume 84.1 fL (80-100); Mean Platelet Volume 10.1 fL (7.4-10.4); Monocytes # (auto) 0.42 K/uL (0.11-0.59); Neutrophils % (auto) 54.2 %; Platelet Count 279 K/uL (130-400); RDW Coefficient of Variation 13.2 % (11.5-14.5); RDW Standard Deviation 40.2 fL (36.4-46.3); Red Blood Count 5.15 M/uL (4.7-6.1); White Blood Count 7.01 K/uL (4.8-10.8)
[2021-09-15] MEDS: DICYCLOMINE HCL 10 MG CAP PO SCH (06:33)
[2021-09-15 07:06] LABS: BUN Creatinine Ratio 12.4 (10-20); Calcium 9.6 mg/dl (8.5-10.1); Creatinine Clr Calc Pharmacy 71.5 ml/min; Est GFR (Non-African American) 82.8 ml/min; Potassium 4.6 mmol/L (3.5-5.1)
--- NOTE | 2021-09-15 07:52 | Discharge Summary ---
Date of Service September 15, 2021 Admission HPI Per Admitting Provider 71-year-old M Hx of DM2, CAD, hypertension, hyperlipidemia, asthma, ventral hernia, colon cancer, melanoma presented to the ER for 1 day of acutely worsening abdominal pain at the area of his ventral hernia. Patient reports that he has had this ventral hernia since his abdominal surgery in February for a colon mass. Over the last week he reports 2/10 abdominal pain in the area of his hernia with a notable bulge: With acute worsening of that abdominal pain over the last 24 hours prompting his visit to the ER. In the ER patient was found to have a hernia that was unable to be reduced by the ER provider. CTAP was performed which showed ventral hernia with bowel within with possible early signs of bowel ischemia. General surgery was consulted and able to reduce the hernia with immediate resolution of abdominal pain. Also of note, patient's lab work notable for WBC count of 11.43, corrected calcium of 10.7, concentrated urine with 1+ ketones. While in the ER patient was also noted to have a significantly elevated BSG in the 400s; patient was given 8 units regular insulin with decrease in BSG to 350s. Patient admits that over the last several days he has had increase in urination and increase in thirst. He recently had his Metformin increased to 1000 mg twice daily and recently had semaglutide weekly injections added to his diabetic regimen. He admits that prior to these changes he was not checking his blood sugars regularly because his blood sugar was "under pretty good control". Principal Diagnosis Diabetes mellitus type 2, uncontrolled Incarcerated incisional hernia Discharge Exam GENERAL: A&Ox3. NAD. CHEST/LUNGS: CTAB A/P. No crackles, wheezes, rales, rhonchi. HEART: RRR. No m/g/r. ABDOMEN: NT/ND, soft. BS+ x4. Midline abdominal scar noted. Reducible hernia at umbilicus. EXTREMITIES: No cyanosis, no clubbing, no edema. SKIN: Warm and dry. No rashes or lesions. PSYCHIATRIC: Euthymic affect, no SI, no pressured speech, no hallucinations NEUROLOGIC: No FND. CN II-XII grossly intact. Discharge Data Allergies Allergy/AdvReac Type Severity Reaction Status Date / Time amoxicillin Allergy Mild RASH Verified 09/13/21 19:37 metoprolol Allergy Mild S.O.B. Verified 09/13/21 19:37 fluticasone AdvReac unknown Verified 09/13/21 19:37 [From Advair Diskus] salmeterol AdvReac unknown Verified 09/13/21 19:37 [From Advair Diskus] Consultations 09/13/21 21:16 ED Decision to Admit Stat 09/14/21 07:19 Consult General Surgery Routine Ordered Studies 09/13/21 18:36 CT abd pelvis IV con only Stat Hospital Course (1) Hypercalcemia: (2) Diabetes mellitus, type 2: (3) Ventral hernia: (4) Hyperglycemia: (5) CAD (coronary artery disease): (6) Hypertension: (7) Hyperlipidemia: (8) Asthma: 71-year-old M Hx of DM2, CAD, hypertension, hyperlipidemia, asthma, ventral hernia admitted for hyperglycemia and monitoring of reduced ventral hernia. Uncontrolled DM2 - BSG to 400s on admission, A1c of 12.5% - Patient with a history of type 2 diabetes, with recent A1c of 12.5% on 09/12/21. - Patient is currently on Metformin 1000 mg daily and was recently set to be started on weekly semaglutide injections, but ultimately never did start the lat ter - He has not tolerated higher doses of metformin due to GI discomfort/diarrhea - Received total of 48U insulin in 24-hour period while admitted -- this results to about 24 unit requirement for basal insulin - Will discharge on Lantus 20 units daily to decrease possibility of hypoglycemia - Recommend close PCP f/u within one week to assess response and make any necessary adjustments - cable ferry operator consulted -- patient instructed on dietary changes, BSG checks, insulin use - Will have phone call f/u with cable ferry operator within 2-3 days of DC Ventral hernia: Patient with a history of a small ventral hernia since abdominal surgery in February 2021 for colon mass. Presents with 1 week of 2/10 abdominal pain that acutely worsened today. CTAP notable for infraumbilical hernia with a loop of bowel and edema, with remark that while there is no rodrigo obstruction early ischemic changes cannot be excluded. - General surgery (Chucky Paarda PA-C) consulted and was able to reduce the hernia -- patient requested for personal reasons not to see the on-call General Surgery attending physician overnight - General surgery (Dr. Rivera) was consulted this AM: - Has multiple hernias, one incarcerated has now been reduced. Discussed elective hernia repair and advised followup with surgery as an outpatient. - Has already been in contact with the [place] who have referred him to hernia specialists in [place] Hypercalcemia - resolved - Patient presented with a corrected calcium of 10.7. - Patient does have a history of melanoma status post excision and chemotherapy. 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 - Resolved with IV hydration Hypertension, CAD, hyperlipidemia: - History of CAD with stent x1. - On admission with BP 160s/00150q. - Home amlodipine, atorvastatin, clopidogrel, aspirin Asthma: - Continue home inhalers. DISPO: DC Home, close PCP f/u recommended Total Time Total Time Spent Total Time Spent (In Minutes): see attending attestation Discharge Plan Discharge Items Patient Disposition: Home - Self-Care Reason For Visit: HYPERGLYCEMIA,INCARCERATED INGUINAL HERNIA Discharge Diagnosis: Hyperglycemia, incarcerated umbilical hernia Activity: Per Instructions section Non-emergency contact: Primary Care Provider and Surgeon Call non-emergency contact if: you have any medication questions and your symptoms worsen Follow-up/Referrals: Manolo Morales III, MD [Primary Care Provider] - Diet: Carb Consistent or DM2 and Heart Healthy Addtl Attending Provider Instructions: You were admitted to [facility] due to significantly elevated blood sugar and for evaluation of your multiple hernias. At the time of your arrival your hernia seems to be incarcerated and thought to possibly require surgery. However, the hernia was able to be reduced and your abdominal pain subsided. You were evaluated by general surgery, who recommended that you see a surgeon who is a hernia specialist. As discussed with you, the [place] has already started the process of referring you to [facility] hernia specialists. Additionally your diabetes was found to be uncontrolled, as evidenced by your hemoglobin A1c of 12.5%. As such, we recommended that you meet with our mineral engineer for discussion of your dietary habits and possibly starting on insulin in addition to your prior medications for better control of your blood sugars. According to your insulin needs in the hospital, we will start you on Lantus 20 units daily. It is also important that you use a glucometer at home to check your blood sugars 3 times daily. As discussed, should you have a blood sugar reading of 300 or more on 2 consecutive checks, we recommend that you seek evaluation by medical provider. Additionally, if you feel dizzy/faint and have a blood sugar that is below 60, please drink some fruit juice immediately to increase your blood sugar. If this happens more than once, please contact your PCP. Please continue to take your previously prescribed medications. We recommend that you follow-up with your primary care provider within the week for continued management of your diabetes and any medication adjustments that need to be made. Please return to the hospital if you have any severe, concerning symptoms such as severe abdominal pain with the hernia that is not able to be reduced, fever, chills, intractable nausea/vomiting, chest pain, shortness of breath, or as above, if your blood sugar is uncontrolled. Thank you for allowing us to participate in your care. Pending Studies at Discharge: No Stand-Alone Forms: My [facility] Butter, Smoking Cessation Medications and DC Order Prescriptions: New insulin glargine-yfgn 100 unit/mL (3 mL) insulin pen 20 unit subcut DAILY Qty: 15 RF: 0 (DME) pen needle, diabetic 31 gauge x 5/32" needle See Rx Instructions .Route Qty: 100 RF: 0 Continued albuterol sulfate [ProAir HFA] 90 mcg/actuation HFA aerosol inhaler 2 puff INHALATION Q4 PRN (Reason: Shortness Of Breath) Qty: 18 RF: 5 famotidine 20 mg tablet 20 mg PO BID Qty: 60 RF: 11 Ozempic 0.25 mg or 0.5 mg(2 mg/1.5 mL) pen injector 0.25 mg subcut .weekly Qty: 1.5 RF: 5 aspirin 81 mg Tablet,Delayed Release (Dr/Ec) 81 mg PO DAILY RF: 0 fluticasone propionate [Flonase Allergy Relief] 50 mcg/actuation [place],Suspension 2 spray INTRANASAL DAILY PRN (Reason: Allergy Symptoms) RF: 0 multivitamin Tablet 1 tab PO DAILY RF: 0 dicyclomine 10 mg capsule 10 mg PO Q6 RF: 0 budesonide-formoterol 80-4.5 mcg/actuation Hfa Aerosol Inhaler 2 puff INHALATION BID RF: 0 vitamin B complex-vit B12 1 tab PO DAILY RF: 0 atorvastatin 40 mg tablet 40 mg PO DAILY RF: 0 clopidogrel 75 mg tablet 75 mg PO DAILY RF: 0 amlodipine 5 mg tablet 5 mg PO DAILY RF: 0 montelukast 10 mg tablet 10 mg PO DAILY RF: 0 metformin 500 mg tablet extended release 24 hr 1,000 mg PO DAILY RF: 0 escitalopram oxalate 5 mg tablet 10 mg PO DAILY RF: 0 Discharge Orders: Discharge Order (Routine); Ordered 09/15/21 Ordered By: Juan A Macdonald Admission Data Admit Date/Time: 09/13/21 22:05 Attending Provider: Vlad Ruelas Admit Provider: Renetta Ardon Primary Care Provider: Manolo Morales III Other Providers: Jude Naranjo ; Paola Rivera Other Interventions: Discharge Summary Assessment (RN) Last Done: 09/15/21 10:08 Supervising Physician Co-Signing Physician Notes Patient seen and examined, chart reviewed, case discussed with Dr. Moe Trevino and I agree with the assessment and plan as above except as otherwise noted General: A&Ox3. NAD. Cooperative. HEENT: Atraumatic, normocephalic. Pulm: CTAB A&P. -wheezes, -rales, -rhonchi. Symmetrical chest rise. No increase work of breathing. No respiratory distress. Cardiac: RRR, -mrg. Radial pulses intact and symmetrical. Abdominal: Nontender, nondistended, soft. BS present. All labs and images reviewed Lantus daily as above, TDD x24 hours while inpatient 48units. 50% basal ~24 units, slightly dose reduced to minimize risk of hypoglycemia. Continue metformin, semaglutide as outpatient. Close followup to PCP for dose adjustments. Monitoring as noted. [facility]. Resident Activity Tracking Resident Involvement: Resident Care Provided Care Provided: Adult Hospital Medicine
[2021-09-15] MEDS: FLUTICASONE/VILANTEROL 100/25MCG 14 PUFFS/INHALER INH SCH (07:56)
[2021-09-15] MEDS: FAMOTIDINE 20 MG TAB PO SCH (07:56)
[2021-09-15] MEDS: INSULIN GLARGINE SOLOSTAR 100 UNITS/ML 3 ML PEN SC SCH (08:03)
[2021-09-15] MEDS: INSULIN ASPART PER UNIT SC SCH (08:06)
[2021-09-15] MEDS ORDERED: CLOPIDOGREL BISULFATE 75 MG TAB PO SCH (09:00)
[2021-09-15] MEDS ORDERED: amLODIPine BESYLATE 5 MG TAB PO SCH (09:00)
[2021-09-15] MEDS ORDERED: ENOXAPARIN INJ 40 MG/0.4 ML SYR SQ SCH (09:00)
[2021-09-15] MEDS ORDERED: VITAMIN B COMPLEX TAB PO SCH (09:00)
[2021-09-15] MEDS ORDERED: MONTELUKAST SODIUM 10 MG TABLET PO SCH (09:00)
[2021-09-15] MEDS ORDERED: ASPIRIN 81 MG ECTAB PO SCH (09:00)
[2021-09-15] MEDS ORDERED: ATORVASTATIN 40 MG TAB PO SCH (09:00)
[2021-09-15] MEDS ORDERED: ESCITALOPRAM OXALATE 10 MG TAB PO SCH (09:00)
[2021-09-15] MEDS ORDERED: MULTIVITAMIN TAB PO SCH (09:00)
--- NOTE | 2021-09-15 10:17 | Billing Data ---
Date of Service September 15, 2021 Coding Level of Care Code D/C DAY MANAGEMENT >30 MINS
== END 2021-09-15 10:40 | disposition home or self-care (01) ==
LOC: ED 16:59 → EDINP 22:05 → INTOOBSV 22:05 → SUATTDRO 22:05 → EDINP 09-14 01:43 → 2N 09-14 22:44

== ENCOUNTER 2025-01-12 11:33 | Inpatient (IN) ==
--- NOTE | 2025-01-12 11:35 | Emergency Department Note ---
Impression & Plan ST elevation (STEMI) myocardial infarction ED Provider Note NAME: MIKE HICKMAN AGE: 74 SEX: M : 1950 ARRIVES VIA: Ambulance INFORMANT: Patient, ED PROVIDER(S): Bryan Scott MD CHIEF COMPLAINT: Chest pain, STEMI MEDICAL DECISION MAKING: Patient presents due to concern for chest pain was noted have a STEMI heart alert was called prior to arrival. Upon arrival patient was feeling improved. Repeat EKG obtained which showed STEMI. Patient was given ticagrelor 180 mg and heparin bolus IV 5000 units. I did speak with Dr. Archer and the patient was emergently taken to the [facility]. I did message the intensive care unit Dr. Alexander to make him aware that patient would likely go to the ICU afterwards. Critical Care: I have personally spent 35 minutes of critical care time in direct management of this patient. This includes bedside care, interpretation of diagnostic studies, and testing, discussion with consultants, patient, and family members, and other require inpatient management activities. This 35 minutes is in excess of all separately billable procedures. Discussion w/ other healthcare providers: Dr. Archer interventional cardiology Dr. Alexander grounds caretaker Prior /Outside records reviewed: I reviewed a prior cardiology visit note from August [address] Hess. Known history of CAD with drug-eluting stent to the RCA. Differential diagnosis: Cardiac ischemia, aortic dissection, pulmonary embolism, pneumothorax, pneumonia, pericarditis, myocarditis, GERD, cholecystitis, pancreatitis, musculoskeletal, as well as other pathologies were considered. Diagnostics, as interpreted by me: ECG: Acute STEMI, ventricular rate 96 with a borderline QRS, concern for inferior STEMI. Cardiac monitoring: An order was placed for continuous cardiac monitoring. The monitor shows a rate of 92 with sinus rhythm. Patient was placed on pulse oximetry Medical decision rules: None Imaging studies: None HPI: Patient presents due to concern for chest pains. EMS sent an EKG prehospital which showed acute STEMI. Heart alert was initiated prior to arrival. Upon arrival the patient reports that he developed left-sided chest pain that was nonradiating but did have associated nausea and diaphoresis. No prior history of RCA stent does follow with Dr. Hess. The patient did receive 6 of morphine 3 nitro and 324 of aspirin prior to arrival. The patient states that he does feel much improved. No cough or fever no leg swelling or calf pain. Patient was out hunting when he developed symptoms and called EMS. PAST MEDICAL HISTORY: See Below PAST SURGICAL HISTORY: See Below SOCIAL HISTORY: See Below HOME MEDICATIONS: See Below ALLERGIES: See Below VITALS: See Below PHYSICAL EXAMINATION: GENERAL: NAD, non-toxic. EYE EXAM: Normal conjunctiva. PERRL, no anisocoria and EOM's grossly intact w/o pain. OROPHARYNX: Moist mucus membranes, grossly normal dentition. NECK: Trachea midline, no stridor. Supple, no nuchal rigidity, no adenopathy, non-tender. No signs of meningismus. FROM of the neck with good chin to chest and neck extension. LUNGS: Clear to auscultation. Normal chest wall mechanics. HEART: NSR, no MRG. ABDOMEN: Abdomen soft, non-tender, no masses, no rebound or guarding. BACK: No CVA TTP. SKIN: No rashes and no bruising. UPPER EXTREMITIES: Upper extremities are grossly normal. LOWER EXTREMITIES: Grossly normal, no edema. NEURO EXAM: Awake and alert, follows commands, no obvious facial asymmetry, normal speech, moves all 4 extremities. 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 Hyperlipidemia Asthma Hypertension Type II diabetes mellitus, well controlled Seasonal allergies (Acute) Rotator cuff impingement syndrome of right shoulder (Acute) Multinodular thyroid (Acute) Encounter for pre-operative examination (Acute) CAD (coronary artery disease) Diabetes mellitus, type 2 diagnosed 11/2015 Depression Medical History Hypercalcemia Hyperglycemia Incarcerated incisional hernia GERD (gastroesophageal reflux disease) Cancer MELANOMA (WITH EXCISION & CHEMOTHERAPY) Anxiety Hypertension Hyperlipidemia Asthma Surgical History History of bowel resection History of repair of rotator cuff right History of colonoscopy History of melanoma excision [facility] History of cardiac cath X1. (2013) [facility]. History of heart artery stent X1 ST[facility]. (2014). TAKES [employer]. Family History Sister Diabetes Father Alzheimer disease Mother Pancreatic cancer Denies family history of Colon cancer Ovarian cancer Prostate cancer Myocardial infarction Breast cancer Social History Smoking Status: Current every day smoker Tobacco Type: Cigarettes Age Started Using Tobacco: 17; packs per day: 1; Cigarettes Per Day: 6-7 little cigars; Second Hand Exposure: No; Do You Dip or Chew Tobacco: No; Hx Alcohol Use: No Hx Substance Use: No Preferred Language: Irish Communication Ability: Effective Visual Impairment: No Limitations Hearing Ability: Normal Poultryman Required: No Beliefs That Will Affect Care: None marital status: / Current Living Situation: Alone Current Living Situation Comment: Home in [facility] current occupational status: retired current occupation: retired from [employer] Feel Safe at Home: Yes Childhood Exposure to Second-Hand Smoke: No Diet: regular Dental Care, Regularly: No Physical Activity Frequency: Does not Exercise Physical Activity Frequency Comment: active-hunts and fishes-outdoors Seatbelt Use: always Sunscreen Use: No Assistive Devices: Glasses Allergies Allergies Allergy/AdvReac Type Severity Reaction Status Date / Time amoxicillin Allergy Mild RASH Verified 08/12/24 09:56 metoprolol Allergy Mild S.O.B. Verified 08/12/24 09:56 fluticasone AdvReac unknown Verified 08/12/24 09:56 [From Advair Diskus] salmeterol AdvReac unknown Verified 08/12/24 09:56 [From Advair Diskus] Home Meds Home Medications Medication Instructions Recorded Confirmed aspirin 81 mg tablet,delayed 81 mg PO DAILY 12/21/18 01/12/25 release multivitamin 1 tab PO DAILY 09/13/21 01/12/25 semaglutide 0.25 mg or 0.5 mg (2 0.5 mg subcut WK 02/17/23 01/12/25 mg/3 mL) subcutaneous pen injector (Ozempic) albuterol sulfate 90 mcg/actuation 1 inh inhalation QID PRN sob 01/12/25 01/12/25 aerosol inhaler carboxymethylcellulose sodium 0.5 1 drp ophthalmic (eye) QID 01/12/25 01/12/25 % eye drops cyanocobalamin (vitamin B-12) 1 tab PO DAILY 01/12/25 01/12/25 fluticasone propionate 50 1 spray intranasal DAILY 01/12/25 01/12/25 mcg/actuation nasal spray,suspension insulin glargine-yfgn 100 unit/mL 20 unit subcut UD 01/12/25 01/12/25 (3 mL) subcutaneous pen metformin 500 mg tablet,extended 500 mg PO UD 01/12/25 01/12/25 release 24 hr Previous Rx's Medication Instructions Recorded pen needle, diabetic 31 gauge x #100 ea 10/11/21" blood sugar diagnostic (OneTouch #50 ea 10/13/23 Verio test strips) montelukast 10 mg tablet 10 mg PO DAILY #90 tabs 05/03/24 atorvastatin 40 mg tablet 40 mg PO DAILY #100 tabs 09/15/24 escitalopram oxalate 10 mg tablet 10 mg PO DAILY #90 tabs 09/20/24 amlodipine 5 mg tablet 5 mg PO DAILY #90 tabs 10/14/24 famotidine 20 mg tablet 20 mg PO BID #180 tabs 01/06/25 Results & Data (ED) Home Medications Current Medication List: was personally reviewed by me Laboratory Data Attestation: I reviewed the patient's lab results. 01/13/25 04:35 01/13/25 04:35 Administered Medications Acetaminophen (Acetaminophen 325 Mg Tab) 650 mg PO Q4H PRN PRN Reason: Pain Stop: 02/11/25 12:47 Last Admin: 01/12/25 19:15 Dose: 650 mg Documented By: ESG Albuterol (Albuterol 0.083% Nebu Soln 3 Ml Vial) 2.5 mg NEB Q6H PRN; Protocol PRN Reason: Shortness Of Breath Or Wheezing Stop: 02/12/25 04:59 Last Admin: 01/13/25 05:18 Dose: 2.5 mg Documented By: CAM Aspirin (Aspirin 81 Mg Ectab) [facility] Stop: 02/12/25 08:59 Last Admin: 01/13/25 08:18 Dose: 81 mg Documented By: KJL Atorvastatin Calcium (Atorvastatin 40 Mg Tab) 80 [facility] Stop: 02/12/25 08:59 Last Admin: 01/13/25 08:18 Dose: 80 mg Documented By: SCOTTY Carvedilol (Carvedilol 3.125 Mg Tab) 3.125 mg PO BIDM COUNT INCLUDES THE [facility] Stop: 02/12/25 07:59 Last Admin: 01/13/25 08:19 Dose: 3.125 mg Documented By: SCOTTY Escitalopram Oxalate (Escitalopram Oxalate 10 Mg Tab) 10 mg PO DAILY DANIA Stop: 02/12/25 08:59 Last Admin: 01/13/25 08:19 Dose: 10 mg Documented By: SCOTTY Famotidine (Famotidine 20 Mg Tab) 20 mg PO BID COUNT INCLUDES THE [facility] Stop: 02/11/25 20:59 Last Admin: 01/13/25 08:21 Dose: 20 mg Documented By: Admin: 01/12/25 20:54 Dose: 20 mg Documented By: RICHMOND Insulin Aspart (Insulin Aspart Per Unit Charge) 0 units SC ACHS COUNT INCLUDES THE [facility] Stop: 02/11/25 16:29 Last Admin: 01/13/25 11:38 Dose: 3 units Documented By: SCOTTY Co-signed By: DTT Admin: 01/13/25 08:17 Dose: 2 units Documented By: SCOTTY Co-signed By: JORGITO Admin: 01/12/25 20:49 Dose: Not Given Documented By: Admin: 01/12/25 16:59 Dose: 3 units Documented By: SCOTTY Co-signed By: MARCO Insulin Glargine (Lantus Per Unit Charge) 20 units SQ QAM COUNT INCLUDES THE [facility] Stop: 02/12/25 08:59 Last Admin: 01/13/25 08:17 Dose: 20 units Documented By: SCOTTY Co-signed By: JORGITO Losartan Potassium (Losartan Potassium 25 Mg Tab) 25 mg PO QAM COUNT INCLUDES THE [facility] Stop: 02/12/25 08:59 Last Admin: 01/13/25 10:24 Dose: 25 mg Documented By: SCOTTY Melatonin (Melatonin 3 Mg Tab) 6 mg PO HS PRN PRN Reason: Sleep Stop: 02/11/25 23:29 Last Admin: 01/12/25 23:48 Dose: 6 mg Documented By: RICHMOND Miscellaneous (Remove Nicoderm Patch) 1 each N/A DAILY@0859 COUNT INCLUDES THE [facility] Stop: 02/12/25 08:58 Last Admin: 01/13/25 08:20 Dose: 1 each Documented By: SCOTTY Montelukast Sodium (Montelukast Sodium 10 Mg Tablet) 10 mg PO DAILY COUNT INCLUDES THE [facility] Stop: 02/12/25 08:59 Last Admin: 01/13/25 08:19 Dose: 10 mg Documented By: SCOTTY Nicotine (Nicotine 7 Mg/24 Hr Tdsy) 1 patch TD [facility] [place] Stop: 02/12/25 08:59 Last Admin: 01/13/25 08:18 Dose: 1 patch Documented By: SCOTTY Pantoprazole Sodium (Pantoprazole 40 Mg Tab) 40 mg PO QAM COUNT INCLUDES THE [facility] Stop: 02/12/25 08:59 Last Admin: 01/13/25 08:19 Dose: 40 mg Documented By: SCOTTY Ticagrelor (Ticagrelor 90 Mg Tab) 90 mg PO BID COUNT INCLUDES THE [facility] Stop: 02/11/25 20:59 Last Admin: 01/13/25 08:19 Dose: 90 mg Documented By: Admin: 01/12/25 20:55 Dose: 90 mg Documented By: RICHMOND Discontinued Medications Al Hydrox/Mg Hydrox/Simethicone (Aluminum/Magnesium/Simeth (Maalox Max) 30 Ml Udc) 15 ml PO NOW STA Stop: 01/12/25 16:38 Last Admin: 01/12/25 17:00 Dose: 15 ml Documented By: SCOTTY Aspirin (Aspirin Chew 324 Mg) 324 mg PO NOW STA Stop: 01/12/25 11:31 Last Admin: 01/12/25 11:41 Dose: Not Given Documented By: [facility] Atropine Sulfate (Atropine Sulfate 0.1 Mg/Ml 10ml Syr) Confirm Administered Dose 1 mg IV .STK-MED ONE Stop: 01/12/25 12:02 Last Admin: 01/12/25 12:29 Dose: Not Given Documented By: MADHAVI Diphenhydramine HCl (Diphenhydramine Capsule 25 Mg Cap) 25 mg PO NOW ONE Stop: 01/12/25 23:31 Last Admin: 01/12/25 23:41 Dose: 25 mg Documented By: RICHMOND Fentanyl Citrate (Fentanyl Citrate Pf 100 Mcg/2 Ml Vial) Confirm Administered Dose 100 mcg .ROUTE .STK-MED ONE Stop: 01/12/25 12:27 Last Increment: 01/12/25 12:30 Dose: 75 mcg Documented By: MADHAVI Heparin Sodium (Porcine) (Heparin Sod (Porcine) 1000 Unit/Ml) 5,000 units IV NOW ONE Stop: 01/12/25 11:31 Last Admin: 01/12/25 11:40 Dose: 5,000 units Documented By: AYDE Co-signed By: BERENICE Heparin Sodium (Porcine) (Heparin (Porcine) 1000 Unit/Ml 10 Ml ([facility] Use Only)) Confirm Administered Dose 10,000 units .ROUTE .STK-MED ONE Stop: 01/12/25 12:27 Last Admin: 01/12/25 12:30 Dose: 4,000 units Documented By: MADHAVI Heparin Sodium/Sodium Chloride (Heparin In Nss Infusion 1000 Unit/500 Ml (2 U/Ml) Bag) Confirm Administered Dose 3,000 units IV .STK-MED ONE Stop: 01/12/25 12:27 Last Admin: 01/12/25 12:30 Dose: 3,000 units Documented By: MADHAVI Magnesium Sulfate/Dextrose (Magnesium Sulfate / D5w) 1 gm in 100 mls @ 50 mls/hr IV ONE ONE Stop: 01/12/25 17:09 Last Infusion: 01/12/25 17:23 Dose: Infused Documented By: Admin: 01/12/25 15:23 Dose: 50 mls/hr Documented By: SCOTTY Ioversol (Optiray 350) Confirm Administered Dose 1 ml .ROUTE .STK-MED ONE Stop: 01/12/25 12:27 Last Admin: 01/12/25 12:35 Dose: 65 ml Documented By: MADHAVI Midazolam HCl (Midazolam Hcl 1 Mg/Ml 2ml Vial) Confirm Administered Dose 2 mg .ROUTE .STK-MED ONE Stop: 01/12/25 12:13 Last Admin: 01/12/25 12:29 Dose: 2 mg Documented By: MADHAVI Midazolam HCl (Midazolam Hcl 1 Mg/Ml 2ml Vial) Confirm Administered Dose 2 mg .ROUTE .STK-MED ONE Stop: 01/12/25 12:27 Last Increment: 01/12/25 12:30 Dose: 1 mg Documented By: MADHAVI Miscellaneous (Icu Protocol For Hyperglycemia) 1 each N/A ACHS DANIA Stop: 01/14/25 16:29 Last Admin: 01/13/25 08:30 Dose: Not Given Documented By: Admin: 01/12/25 20:49 Dose: Not Given Documented By: Admin: 01/12/25 15:29 Dose: Not Given Documented By: SCOTTY Miscellaneous (Icu Electrolyte Replacement Protocol) 1 each N/A BID@18 COUNT INCLUDES THE [facility]; Protocol Stop: 01/20/25 05:59 Last Admin: 01/13/25 05:54 Dose: 1 each Documented By: RICHMOND Nicardipine HCl (Nicardipine 2,000 Mcg/20 Ml Syr) Confirm Administered Dose 2,000 mcg .ROUTE .STK-MED ONE Stop: 01/12/25 12:27 Last Admin: 01/12/25 12:29 Dose: 2,000 mcg Documented By: MADHAVI Nicotine (Nicotine 21 Mg/24 Hr Tdsy) 1 patch TD QAM COUNT INCLUDES THE [facility] Stop: 02/11/25 14:14 Last Admin: 01/12/25 15:23 Dose: 1 patch Documented By: SCOTTY Nitroglycerin/Dextrose (Nitroglycerin/D5w 100mcg/Ml 20ml Syr) Confirm Administered Dose 2,000 mcg .ROUTE .STK-MED ONE Stop: 01/12/25 12:27 Last Admin: 01/12/25 12:29 Dose: 2,000 mcg Documented By: MADHVAI Potassium Chloride (Potassium Chloride Crtab 20 Meq Tabcr) 40 meq PO NOW STA Stop: 01/12/25 15:11 Last Admin: 01/12/25 15:23 Dose: 40 meq Documented By: SCOTTY Potassium Phosphate (Pot Phosphate Monobasic W/ Sod Tab) 1 tab PO Q4H COUNT INCLUDES THE [facility] Stop: 01/13/25 14:01 Last Admin: 01/13/25 10:23 Dose: 1 tab Documented By: Admin: 01/13/25 06:11 Dose: 1 tab Documented By: RICHMOND Ticagrelor (Ticagrelor 90 Mg Tab) 180 mg PO ONE ONE Stop: 01/12/25 11:31 Last Admin: 01/12/25 11:40 Dose: 180 mg Documented By: [facility] Discharge Plan Visit Data Chief Complaint: Heart Alert Stated Complaint: HEART ALERT ED Provider: Bryan Scott Discharge Problem: ST elevation (STEMI) myocardial infarction Patient Disposition: Admitted As Inpatient Condition: Serious Discharge Instructions Interventions: ED Discharge Assessment Last Done: 01/12/25 12:00 Discharge Problem: ST elevation (STEMI) myocardial infarction Qualifiers: Involved coronary artery: right coronary artery Qualified Code(s): I21.11 - ST elevation (STEMI) myocardial infarction involving right coronary artery
[2025-01-12] MEDS: HEPARIN SOD (PORCINE) 1000 UNIT/ML IV ONE (11:40)
[2025-01-12] MEDS: TICAGRELOR 90 MG TAB PO ONE (11:40)
[2025-01-12] MEDS: ASPIRIN CHEW 324 MG PO STA (11:41)
--- NOTE | 2025-01-12 11:55 | Pre Anesthesia Assessment ---
Date of Service January 12, 2025 Pre Sedation Assessment Cardiovascular + regular rate Respiratory + respiratory effort normal Pre-Sedation Airway Assessment Smoking Status: Current every day smoker Hx Sleep Apnea: No Hx Difficult Intubation: No Short, Thick Neck: No Thyromental Distance: < 3.5 Finger Breadths Oral Cavity: + WNL Mallampati Class: III ASA: ASA3 Procedure Planning Contraindications for Sedation: none Current Medications Reviewed: Yes Notes The planned sedation has been discussed with the patient. Informed Consent was obtained. I have identified the patient, determined the appropriateness of sedation and have assessed the patient immediately prior to the procedure. All medicine(s) and interventions are by my order.
--- NOTE | 2025-01-12 11:56 | Cardiology Consultation ---
Date of Consultation January 12, 2025 Assessment & Plan (1) STEMI (ST elevation myocardial infarction): Presentation consistent with inferior STEMI and recommend proceeding with emergent cardiac catheterization and likely primary PCI. No apparent contraindications to procedure. Discussed risks, benefits, alternatives of procedure with patient and they are willing to proceed. Given IV heparin and ticagrelor 180 mg in the ED. Further recommendations pending findings of coronary angiography. History of Present Illness History of Present Illness Mr. Cooney is a 74-year-old man here with acute chest pain and ECG concerning for acute ME. Patient seen emergently in the ED after heart alert activated en route. Past cardiac history remarkable for CAD post PCI in 2013 ([facility] 2.5 x 15 Xience to RCA). Last stress test 08/2022 negative for ischemia, normal biventricular function with mild inferior hypokinesis. He follows with Dr. Duffy for his cardiac care. Cardiac risk factors include type 2 diabetes, hypertension, dyslipidemia and ongoing tobacco use. Chest pain began this morning while out turkey hunting. Reports about 45 minutes of chest pain prior to arrival. Describes substernal chest pain with associated nausea. Hemodynamically stable on arrival. EKG showed sinus rhythm with inferior ST elevations. Received 3 nitro, 6 and morphine, aspirin and route. Heparin and ticagrelor in ED. Allergies Allergy/AdvReac Type Severity Reaction Status Date / Time amoxicillin Allergy Mild RASH Verified 08/12/24 09:56 metoprolol Allergy Mild S.O.B. Verified 08/12/24 09:56 fluticasone AdvReac unknown Verified 08/12/24 09:56 [From Advair Diskus] salmeterol AdvReac unknown Verified 08/12/24 09:56 [From Advair Diskus] Home Medications Medication Instructions Recorded Confirmed Type aspirin 81 mg tablet,delayed 81 mg PO DAILY 12/21/18 01/12/25 History release multivitamin 1 tab PO DAILY 09/13/21 01/12/25 History pen needle, diabetic 31 gauge x #100 ea 10/11/21 08/12/24 Rx 5/32" semaglutide 0.25 mg or 0.5 mg (2 0.5 mg subcut WK 02/17/23 01/12/25 History mg/3 mL) subcutaneous pen injector (i.TV) blood sugar diagnostic (OneTouch #50 ea 10/13/23 08/12/24 Rx Verio test strips) montelukast 10 mg tablet 10 mg PO DAILY #90 tabs 05/03/24 01/12/25 Rx atorvastatin 40 mg tablet 40 mg PO DAILY #100 tabs 09/15/24 01/12/25 Rx escitalopram oxalate 10 mg tablet 10 mg PO DAILY #90 tabs 09/20/24 01/12/25 Rx amlodipine 5 mg tablet 5 mg PO DAILY #90 tabs 10/14/24 01/12/25 Rx famotidine 20 mg tablet 20 mg PO BID #180 tabs 01/06/25 01/12/25 Rx albuterol sulfate 90 mcg/actuation 1 inh inhalation QID PRN sob 01/12/25 01/12/25 History aerosol inhaler carboxymethylcellulose sodium 0.5 1 drp ophthalmic (eye) QID 01/12/25 01/12/25 History % eye drops cyanocobalamin (vitamin B-12) 1 tab PO DAILY 01/12/25 01/12/25 History fluticasone propionate 50 1 spray intranasal DAILY 01/12/25 01/12/25 History mcg/actuation nasal spray,suspension insulin glargine-yfgn 100 unit/mL 20 unit subcut UD 01/12/25 01/12/25 History (3 mL) subcutaneous pen metformin 500 mg tablet,extended 500 mg PO UD 01/12/25 01/12/25 History release 24 hr Patient History Medical History (Reviewed 08/12/24 @ 10:05 by Frank Duffy Jr, MD, [facility]) Hypercalcemia Hyperglycemia Incarcerated incisional hernia GERD (gastroesophageal reflux disease) Cancer Anxiety Hypertension Hyperlipidemia Asthma Surgical History History of bowel resection History of repair of rotator cuff History of colonoscopy History of melanoma excision History of cardiac cath History of heart artery stent Family History Sister Diabetes Father Alzheimer disease Mother Pancreatic cancer Denies family history of Colon cancer Ovarian cancer Prostate cancer Myocardial infarction Breast cancer Social History Smoking Status: Current every day smoker Tobacco Type: Cigars Age Started Using Tobacco: 17; packs per day: 1; Cigarettes Per Day: 6-7 little cigars; Second Hand Exposure: No; Do You Dip or Chew Tobacco: No; Hx Alcohol Use: No Hx Substance Use: No Preferred Language: Thai Communication Ability: Effective Visual Impairment: No Limitations Hearing Ability: Normal Transfer Station Operator Required: No Beliefs That Will Affect Care: None marital status: / Current Living Situation: Alone Current Living Situation Comment: Home in [facility] current occupational status: retired current occupation: retired from [employer] Safe at Home: Yes Childhood Exposure to Second-Hand Smoke: No Diet: regular Dental Care, Regularly: No Physical Activity Frequency: Does not Exercise Physical Activity Frequency Comment: active-hunts and fishes-outdoors Seatbelt Use: always Sunscreen Use: No Assistive Devices: Denture - Upper, Denture - Lower and Glasses Review of Systems Review of Systems: Not completed in setting of emergent situation Physical Exam Physical Exam: General: Uncomfortable HEENT: Sclerae anicteric Lungs: Clear to auscultation bilaterally Cardiac: Regular rate and rhythm, no murmurs. Vascular: 2+ radial Abdomen: Soft, nontender Extremities: Well perfused, no peripheral edema Neuro: Nonfocal Psych: Alert orient x3, normal affect and mood PG Care Time/CCT Total # of Minutes Spent Total Time Spent with Patient: Total time spent is greater than 50% in coordination of care (as documented) at patient's floor/unit and/or counseling patient: Coding Level of Care Code 00624 OFFICE CONSULT LVL M Diagnoses STEMI (ST elevation myocardial infarction) I21.3
--- NOTE | 2025-01-12 11:57 | History & Physical Report ---
Date of Service January 12, 2025 Assessment & Plan (1) STEMI (ST elevation myocardial infarction): Plan: Reese is a 74yo M with a hx CAD, HTN, DM2, asthma who presented with sudden onset ches tpain and who was brought to the pathology lab technician emergently for STEMI admitted to the ICU s/p 2 RAFITA due to mid RCA occlusion. Inferior STEMI Prior history of CAD with RAFITA to RCA. 01/12 s/p PCI DESx2 to RCA just provimal to prior stent Echo 08/2022 with no evidence of ischemia. LV SF normal. Mild inferior wall hypokinesis at that time Admitting EKG: Inferior STEMI Creatinine is at baseline Troponin trended to peak Cardiology consulted Echo pending. - Continue aspirin/ticagrelor. Carvedilol continued. Monitor for dyspnea due to past hx of rxn to metoprolol. Continue losartan. - Last LDL <60. Atorvastatin 80mg continued, Lipid panel pending. Magnesium 1.6, repletion ordered Type II DM Home glargine 20 units daily continued SSI CF 40/CR 15 Goal BSG [id number] Glucose checks AC/at bedtime DM2/heart healthy diet Hold semaglutide while inpatient. Hypertension Carvedilol, losartan as noted Asthma Continue Symbicort twice daily Albuterol as needed Continue montelukast - Mointor for dyspnea w/ addition of coreg and 2/2 hx of dyspnea on metoprolol GERD Continue Pepcid daily DVT prophylaxis: S/p heparin bolus and DAPT for heart alert. SCDs. Diet: Heart healthy/DM2 CODE STATUS: Disposition: ICU (2) RODRIGUEZ (dyspnea on exertion): (3) Seasonal allergies: (4) Type II diabetes mellitus, well controlled: (5) Controlled type 2 diabetes mellitus with circulatory disorder: History of Present Illness Primary Care Provider: AMEE Lainez Reese is a 74-year-old male with a past medical history of type II DM, hypertension, CAD with distant history of RAFITA to RCA who was out hunting when he developed the sudden onset of severe substernal chest pain. Presented to the ER as a heart alert. Prehospital EKG consistent with inferior STEMI. He was given full dose aspirin, 3 nitro, 6 mg of morphine. Was subsequently given ticagrelor load 180 mg, heparin bolus, and brought emergently to the Cardiopulmonary Physical Therapist. Reese is seen at the bedside with family. He is seen briefly in the emergency department prior to being taken to the Cardiopulmonary Physical Therapist. Subsequently seen in the ICU post catheterization. He reports that he has a history of an RCA stent many years ago. No chest pain since that time up until morning of presentation. He does get some shortness of breath at baseline and wheezing, has followed with multiple doctors and is told he may have COPD/asthma but that this is mild. While he was [place] hunting he had the sudden onset of severe chest pain which radiated into his left jaw and with a 910/10 intensity. He was seen in the Cardiopulmonary Physical Therapist and was found to have an RCA occlusion for which he received 2 stents. On reassessment he reports he feels that his pain has completely resolved. He denies chest pain chest pressure shortness of breath dyspnea sweating or discomfort at time of bedside evaluation. His right radial TR band is in place and he has no pain at the site or change in sensation in his fingertips. Reports he has started smoking many cigars which he uses regularly and would like a nicotine patch. Cessation recommended. No alcohol use. Reported as having dyspnea to metoprolol on his allergy list, he does not remember this reaction. Medical History: Reviewed Medications: Reviewed Surgical History: Reviewed Family history: Reviewed Allergies: Reviewed Social History: Tobacco/mini cigar use. no etoh Code Status: Full Allergies Allergy/AdvReac Type Severity Reaction Status Date / Time amoxicillin Allergy Mild RASH Verified 08/12/24 09:56 metoprolol Allergy Mild S.O.B. Verified 08/12/24 09:56 fluticasone AdvReac unknown Verified 08/12/24 09:56 [From Advair Diskus] salmeterol AdvReac unknown Verified 08/12/24 09:56 [From Advair Diskus] Home Medications Medication Instructions Recorded Confirmed Type aspirin 81 mg tablet,delayed 81 mg PO DAILY 12/21/18 01/12/25 History release multivitamin 1 tab PO DAILY 09/13/21 01/12/25 History pen needle, diabetic 31 gauge x #100 ea 10/11/21 08/12/24 Rx 5/32" semaglutide 0.25 mg or 0.5 mg (2 0.5 mg subcut WK 02/17/23 01/12/25 History mg/3 mL) subcutaneous pen injector (Acision) blood sugar diagnostic (OneTouch #50 ea 10/13/23 08/12/24 Rx Verio test strips) montelukast 10 mg tablet 10 mg PO DAILY #90 tabs 05/03/24 01/12/25 Rx atorvastatin 40 mg tablet 40 mg PO DAILY #100 tabs 09/15/24 01/12/25 Rx escitalopram oxalate 10 mg tablet 10 mg PO DAILY #90 tabs 09/20/24 01/12/25 Rx amlodipine 5 mg tablet 5 mg PO DAILY #90 tabs 10/14/24 01/12/25 Rx famotidine 20 mg tablet 20 mg PO BID #180 tabs 01/06/25 01/12/25 Rx albuterol sulfate 90 mcg/actuation 1 inh inhalation QID PRN sob 01/12/25 01/12/25 History aerosol inhaler carboxymethylcellulose sodium 0.5 1 drp ophthalmic (eye) QID 01/12/25 01/12/25 History % eye drops cyanocobalamin (vitamin B-12) 1 tab PO DAILY 01/12/25 01/12/25 History fluticasone propionate 50 1 spray intranasal DAILY 01/12/25 01/12/25 History mcg/actuation nasal spray,suspension insulin glargine-yfgn 100 unit/mL 20 unit subcut UD 01/12/25 01/12/25 History (3 mL) subcutaneous pen metformin 500 mg tablet,extended 500 mg PO UD 01/12/25 01/12/25 History release 24 hr Past Med/Surg History Problem List STEMI (ST elevation myocardial infarction) RODRIGUEZ (dyspnea on exertion) History of malignant neuroendocrine tumor Ventral hernia Encounter for pre-operative examination Presence of drug-eluting stent in right coronary artery Antiplatelet or antithrombotic long-term use Encounter for health maintenance examination in adult Controlled type 2 diabetes mellitus with circulatory disorder Hyperlipidemia Asthma Hypertension Type II diabetes mellitus, well controlled Seasonal allergies (Acute) Rotator cuff impingement syndrome of right shoulder (Acute) Multinodular thyroid (Acute) Encounter for pre-operative examination (Acute) CAD (coronary artery disease) Diabetes mellitus, type 2 diagnosed 11/2015 Depression Medical History Hypercalcemia Hyperglycemia Incarcerated incisional hernia GERD (gastroesophageal reflux disease) Cancer MELANOMA (WITH EXCISION & CHEMOTHERAPY) Anxiety Hypertension Hyperlipidemia Asthma Surgical History History of bowel resection History of repair of rotator cuff right History of colonoscopy History of melanoma excision [facility] History of cardiac cath X1. (2013) [facility]. History of heart artery stent X1 STENTS. (2013). TAKES PLAVIX. 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 current occupational status: retired current occupation: retired from [employer] Feels Safe at Home: Yes Safety Concerns: Feels Safe At This Time Childhood Exposure to Second-Hand Smoke: No Diet: regular Dental Care, Regularly: No Physical Activity Frequency: Does not Exercise Physical Activity Frequency Comment: active-hunts and fishes-outdoors Seatbelt Use: always Sunscreen Use: No Assistive Devices: Glasses Physical Exam Physical Exam: General: A&Ox3. NAD. Cooperative. HEENT: Atraumatic, normocephalic. Vision and hearing grossly intact Pulm: CTAB A&P. -wheezes, -rales, -rhonchi. Symmetrical chest rise. No increased work of breathing. No respiratory distress. Cardiac: RRR, -mrg. Radial pulses intact and symmetrical. No JVD Abdominal: Nontender, nondistended, soft. BS present. Extremities: No lower extremity edema. Right radial TR band is in place. No underlying hematoma. Sensation is intact in all fingertips, cap refill is brisk less than 2 seconds. PG Care Time/CCT Total # of Minutes Spent Total Time Spent with Patient: Total time spent is greater than 50% in coordination of care (as documented) at patient's floor/unit and/or counseling patient: Coding Level of Care Code 35759 INT INP/OBS CARE 3/75MIN Diagnoses STEMI (ST elevation myocardial infarction) I21.3 RODRIGUEZ (dyspnea on exertion) R06.09 Seasonal allergies J30.2 Type II diabetes mellitus, well controlled E11.9 Controlled type 2 diabetes mellitus with circulatory disorder E11.59
[2025-01-12 12:09] LABS: Basophils # (auto) 0.07 K/uL (0.00-0.20); Basophils % (auto) 0.5 %; Eosinophils # (auto) 0.14 K/uL (0.00-0.50); Eosinophils % (auto) 1.1 %; Hemoglobin 14.3 g/dl (14.0-18.0); Immature Granulocytes # (auto) 0.05 K/uL (0.01-0.20); Immature Granulocytes % (auto) 0.4 %; Lymphocytes # (auto) 2.61 K/uL (1.20-3.40); Lymphocytes % (auto) 19.8 %; Mean Corpuscular Hemoglobin 29.9 pg (25.0-34.0); Mean Corpuscular Volume 87.9 fL (80.0-100.0); Mean Platelet Volume 10.2 fL (9.4-12.4); Monocytes # (auto) 0.86 K/uL (0.11-0.59); Monocytes % (auto) 6.5 %; Neutrophils # (auto) 9.42 K/uL (1.40-6.50); Neutrophils % (auto) 71.7 %; Platelet Count 350 K/uL (130-400); RDW Coefficient of Variation 12.9 % (11.5-14.5); RDW Standard Deviation 41.2 fL (36.4-46.3); Red Blood Count 4.78 M/uL (4.70-6.10); White Blood Count 13.15 K/ul (4.8-10.8)
[2025-01-12] MEDS: ATROPINE SULFATE 0.1 MG/ML 10ML SYR IV ONE (12:29)
[2025-01-12] MEDS: MIDAZOLAM HCL 1 MG/ML 2ML VIAL ONE ×2 (12:29→12:30)
[2025-01-12] MEDS: niCARdipine 2,000 MCG/20 ML SYR ONE (12:29)
[2025-01-12] MEDS: NITROGLYCERIN/D5W 100MCG/ML 20ML SYR ONE (12:29)
[2025-01-12] MEDS: fentaNYL citrate PF 100 MCG/2 ML VIAL ONE (12:30)
[2025-01-12] MEDS: HEPARIN (PORCINE) 1000 UNIT/ML 10 ML (CATH LAB USE ONLY) ONE (12:30)
[2025-01-12 12:31] LABS: Albumin Globulin Ratio 1.4 (0.9-2); Albumin Level 4.1 gm/dl (3.4-5.0); BUN Creatinine Ratio 15.8 (10-20); Bilirubin,Total 0.4 mg/dl (0.2-1.0); Calcium 9.4 mg/dl (8.6-10.3); Creatinine Clr Calc Pharmacy 64.9 ml/min; Globulin 2.9 gm/dl (2.5-4.0); Magnesium 1.6 mg/dl (1.7-2.4); Potassium 3.8 mmol/L (3.5-5.1)
[2025-01-12] MEDS: OPTIRAY 350 ONE (12:35)
[2025-01-12 12:36] LABS: Troponin I High Sensitivity 16.1 pg/ml (0-20)
--- NOTE | 2025-01-12 12:41 | Post Anesthesia Assessment ---
Date of Service January 12, 2025 Post Sedation Assessment Vital Signs Temp Pulse Resp BP Pulse Ox O2 Del Method 01/12/25 11:36 97.9 F 95 H 18 123/81 94 Room Air Recovery Score Activity: Moves 4 extremities Respiration: Deep Breath/Cough Circulation: +/-20% PreAnes Value Consciousness: Fully Awake Oxygen Saturation: O2 needed for >90% Discharge Sedation Level of Care: Fast Track Phase II
[2025-01-12 12:43] LABS: Partial Thromboplastin Time 26 Seconds (21-31); Prothrombin Time 10.9 Seconds (9.0-12.0)
[2025-01-12 12:46] LABS: Thyroid Stimulating Hormone 1.56 uIu/ml (0.300-4.500)
[2025-01-12] MEDS ORDERED: GLUCOSE 10 TAB/TUBE PO PRN (12:58)
[2025-01-12] MEDS ORDERED: GLUCAGON FOR INJ 1 MG VIAL SQ PRN (12:58)
[2025-01-12] MEDS ORDERED: GLUCOSE 40% GEL 15 GM TUBE PO PRN (12:58)
[2025-01-12] MEDS ORDERED: DEXTROSE 50% 50 ML SYRINGE IV PRN (12:58)
[2025-01-12] MEDS ORDERED: CARBOHYDRATES FOR HYPOGLYCEMIA PO PRN (12:58)
--- NOTE | 2025-01-12 14:22 | Critical Care Consultation ---
Date of Consultation January 12, 2025 Assessment & Plan (1) STEMI (ST elevation myocardial infarction): (2) Tobacco abuse counseling: Plan Reese Cooney is a 74-year-old male with past medical history of asthma, hyperlipidemia, hypertension, anxiety, CAD w/ 1 stent to RCA, Diabetes Mellitus Type II, anxiety, GERD, and current 1ppd smoker; who presented to [facility] on 01/12/2025 with chest pain found to have an inferior STEMI s/p [address] elevated (STEMI) myocardial infarction of inferior wall s/p 2 stents to RCA -12 lead EKG on admission showed ST elevation in leads II, III, avF. 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 -Cont ASA and ticagrelor -TTE pending Smoking cessation -Discussed with patient who is open to quitting -recommend further discussions on options for quitting Supervising Physician Co-Signing Physician Notes Patient separately seen and evaluated from [facility]. Agree with the note as above. Patient complaining of mild epigastric pain about 1-2 out of 10. Hemodynamically stable. On exam he looks well and in no apparent distress. Lungs are clear to auscultation bilaterally. Cardiac exam is unremarkable. Follow-up echo results. Continue dual antiplatelets, statin and beta-vera. Smoking cessation highly encouraged. Nicotine patch in place. Replace electrolytes as needed to maintain K above 4 and magnesium above 2. History of Present Illness Reason for Consultation: Occlusion of Right coronary artery/STEMI s/p 2 stents to RCA Attending Physician: Vlad Ruelas MD History of Present Illness Reese Cooney is a 74-year-old male with past medical history of asthma, hyperlipidemia, hypertension, anxiety, CAD w/ 1 stent to RCA, Diabetes Mellitus Type II, anxiety, GERD, and current 1ppd smoker; who presented to [facility] on 01/12/2025 as a heart alert. Patient reports that he was turkey hunting this morning when he had an episode of acute onset substernal chest pain. Patient brought to [facility] ED by EMS. Prehospital EKG showed inferior wall STEMI and a heart alert was initiated. Upon arrival patient given full dose aspirin, 3 nitro, 6mg morphine. Cardiology evaluated and patient given ticagrelor and heparin bolus. Patient taken emergently to label stamper where the RCA was found to be 100% occluded and 2 stents were placed. Patient had TR band placed to right radial artery access site and brought to the ICU for further evaluation and management. Allergies Allergy/AdvReac Type Severity Reaction Status Date / Time amoxicillin Allergy Mild RASH Verified 08/12/24 09:56 metoprolol Allergy Mild S.O.B. Verified 08/12/24 09:56 fluticasone AdvReac unknown Verified 08/12/24 09:56 [From Advair Diskus] salmeterol AdvReac unknown Verified 08/12/24 09:56 [From Advair Diskus] Home Medications Medication Instructions Recorded Confirmed Type aspirin 81 mg tablet,delayed 81 mg PO DAILY 12/21/18 01/12/25 History release multivitamin 1 tab PO DAILY 09/13/21 01/12/25 History pen needle, diabetic 31 gauge x #100 ea 10/11/21 08/12/24 Rx 5/32" semaglutide 0.25 mg or 0.5 mg (2 0.5 mg subcut WK 02/17/23 01/12/25 History mg/3 mL) subcutaneous pen injector (SET) blood sugar diagnostic (OneTouch #50 ea 10/13/23 08/12/24 Rx Verio test strips) montelukast 10 mg tablet 10 mg PO DAILY #90 tabs 05/03/24 01/12/25 Rx atorvastatin 40 mg tablet 40 mg PO DAILY #100 tabs 09/15/24 01/12/25 Rx escitalopram oxalate 10 mg tablet 10 mg PO DAILY #90 tabs 09/20/24 01/12/25 Rx amlodipine 5 mg tablet 5 mg PO DAILY #90 tabs 10/14/24 01/12/25 Rx famotidine 20 mg tablet 20 mg PO BID #180 tabs 01/06/25 01/12/25 Rx albuterol sulfate 90 mcg/actuation 1 inh inhalation QID PRN sob 01/12/25 01/12/25 History aerosol inhaler carboxymethylcellulose sodium 0.5 1 drp ophthalmic (eye) QID 01/12/25 01/12/25 History % eye drops cyanocobalamin (vitamin B-12) 1 tab PO DAILY 01/12/25 01/12/25 History fluticasone propionate 50 1 spray intranasal DAILY 01/12/25 01/12/25 History mcg/actuation nasal spray,suspension insulin glargine-yfgn 100 unit/mL 20 unit subcut UD 01/12/25 01/12/25 History (3 mL) subcutaneous pen metformin 500 mg tablet,extended 500 mg PO UD 01/12/25 01/12/25 History release 24 hr Patient History Medical History Hypercalcemia Hyperglycemia Incarcerated incisional hernia GERD (gastroesophageal reflux disease) Cancer MELANOMA (WITH EXCISION & CHEMOTHERAPY) Anxiety Hypertension Hyperlipidemia Asthma Surgical History History of bowel resection History of repair of rotator cuff right History of colonoscopy History of melanoma excision [facility] History of cardiac cath X1. (2013) [facility]. History of heart artery stent X1 STENTS. (2013). TAKES PLAVIX. 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 Beliefs That Will Affect Care: None marital status: / Current Living Situation: Alone Current Living Situation Comment: [facility] current occupational status: retired current occupation: retired from [employer] Feels Safe at Home: Yes Safety Concerns: Feels Safe At This Time Childhood Exposure to Second-Hand Smoke: No Diet: regular Dental Care, Regularly: No Physical Activity Frequency: Does not Exercise Physical Activity Frequency Comment: active-hunts and fishes-outdoors Seatbelt Use: always Sunscreen Use: No Assistive Devices: Glasses Review of Systems 2 Review of Systems: Constitutional: No Weight Change, No Fever, No Chills, No Night Sweats, No Fatigue, No Malaise ENT/Mouth: No Hearing Changes, No Ear Pain, No Nasal Congestion, No Sinus Pain, No Hoarseness, No sore throat, No Rhinorrhea, No Swallowing Difficulty Eyes: No Eye Pain, No Swelling, No Redness, No Foreign Body, No Discharge, No Vision Changes Cardiovascular: No Chest Pain, No SOB, No PND, No Dyspnea on Exertion, No Orthopnea, No Claudication, No Edema, No Palpitations Respiratory: No Cough, No Sputum, No Wheezing, No Smoke Exposure, No Dyspnea Gastrointestinal: No Nausea, No Vomiting, No Diarrhea, No Constipation, No Pain, No Heartburn, No Anorexia, No Dysphagia, No Hematochezia, No Melena, No Flatulence, No Jaundice Genitourinary: No Dysmenorrhea, No DUB, No Dyspareunia, No Dysuria, No Urinary Frequency, No Hematuria, No Urinary Incontinence, No Urgency, No Flank Pain, No Urinary Flow Changes, No Hesitancy Musculoskeletal: No Arthralgias, No Myalgias, No Joint Swelling, No Joint Stiffness, No Back Pain, No Neck Pain, No Injury History Skin: No Skin Lesions, No Pruritis, No Hair Changes, No Breast/Skin Changes, No Nipple Discharge Neuro: No Weakness, No Numbness, No Paresthesias, No Loss of Consciousness, No Syncope, No Dizziness, No Headache, No Coordination Changes, No Recent Falls Psych: No Anxiety/Panic, No Depression, No Insomnia, No Personality Changes, No Delusions, No Rumination, No SI/HI/AH/VH, No Social Issues, No Memory Changes, No Violence/Abuse Hx., No Eating Concerns Heme/Lymph: No Bruising, No Bleeding, No Transfusions History, No Lymphadenopathy Endocrine: No Polyuria, No Polydipsia, No Temperature Intolerance Physical Exam 2 Physical Exam: General: Patient lying in bed in no acute distress. HEENT: Sclerae anicteric, atraumatic, normocephalic Lungs: Clear to auscultation bilaterally. Chest rise symmetrical. Breathing nonlabored. Cardiac: Regular rate and rhythm, no murmurs, rubs, or gallops. S1/S2 present. Vascular: 2+ radial pulse on left. TR band to right radial access site without bleeding or hematoma. Good cap refill. Abdomen: Soft, nontender, nondistended. Normoactive bowel Extremities: Well perfused, no peripheral edema Neuro: No focal weakness. no numbness/tingling. 5/5 all extremities, follows commands, speech clear, face symmetric. Psych: Alert orient x3, normal affect and mood Results & Data Results & Data Vital Signs (Past 12 Hours) Vital Signs Temp Pulse Pulse Resp BP BP Pulse Ox 01/12/25 12:59 84 18 99/60 L 94 01/12/25 11:36 36.6 C 95 H 18 123/81 94 O2 Del Method 01/12/25 12:59 Room Air 01/12/25 11:36 Room Air Laboratory Results 01/12/25 11:38 01/12/25 11:38 Diagnostic Findings Transthoracic Echocardiogram pending [place] [address] INT INP/OBS CARE 2/55MIN Patient Type New Medical Decision Making Moderate Complexity Diagnoses STEMI (ST elevation myocardial infarction) I21.3 Tobacco abuse counseling Z71.6
[2025-01-12] MEDS: POTASSIUM CHLORIDE CRTAB 20 MEQ TABCR PO STA (15:23)
[2025-01-12] MEDS: MAGNESIUM SULFATE / D5W 1 GM/100 ML BAG IV ONE (15:23)
[2025-01-12] MEDS: NICOTINE 21 MG/24 HR TDSY TD SCH (15:23)
[2025-01-12] MEDS: ICU Protocol for HYPERglycemia SCH (15:29)
[2025-01-12] MEDS: INSULIN ASPART PER UNIT CHARGE SC SCH (16:59)
[2025-01-12] MEDS: ALUMINUM/MAGNESIUM/SIMETH (MAALOX MAX) 30 ML UDC PO STA (17:00)
--- NOTE | 2025-01-12 17:20 | XCELERA ---
[id number] \\[id number]
[2025-01-12] MEDS ORDERED: MoRPHine SULFATE 2 MG/ML CARP IV PRN ×2 (19:01→19:05)
[2025-01-12] MEDS: ACETAMINOPHEN 325 MG TAB PO PRN (19:15)
--- OUTSIDE RECORDS SUMMARY | 2025-01-12 19:19 | External Medical Summary | Summary of Care ---
Author Name Unknown Organization [facility] Address [address] [place] [address] Phone [phone] Care Team Providers Care Tool Crib Attendant Name Role Phone Nuha Leigh PA-C Primary Care Provider Reason for Visit * Auth/Cert Specialty Diagnoses / Procedures Referred By Juan t Referred To Contact Diagnoses History of colon polyps Special screening for malignant neoplasms, colon Rectal bleeding History of colon polyps [Z86.0100] Special screening for malignant neoplasms, colon [Z12.11] Rectal bleeding [K62.5] Procedures COLONOSCOPY, DIAGNOSTIC (RECTUM) COLONOSCOPY FLEXIBLE PROXIMAL DIAGNOSTIC Jun Gallego MD [address] [place] [address] Phone: tel: fax: ENDO [facility], Endoscopy Room [facility] [address] [place] [address] Phone: tel: Referral ID Status Reason Start Date Expiration Date Visits Re quested Visits Authorized [id number] Encounter Details Date Type Department Care Team (Latest Contact Info) Description 01/03/2025 8:04 AM EDT - 01/03/2025 9:56 AM EDT Hospital Encounter [facility]O [facility], Endoscopy Room [facility] [address] [place] [phone] Teodoro Rivera DO [address] [place] [address] Colonoscopy Discharge Disposition: Home - Self Care Allergies Active Allergy Reactions Criticality Noted Date Comments Metoprolol Low 10/30/2020 Other reaction(s): SOB documented as of this encounter (statuses as of 01/04/2025) Medications Aspirin 81 MG Oral Tablet Delayed Release Take 1 Tablet by mouth in the morning. Active amLODIPine Besylate 5 MG Oral Tablet (Norvasc) Take 1 Tablet by mouth in the morning. 08/27/20 Active Famotidine 20 MG Oral Tablet (Pepcid) Take 1 Tablet by mouth in the morning and 1 Tablet before bedtime. 09/27/19 Active Acetaminophen 325 MG Oral Tablet (Tylenol) Take 3 Tabs by mouth every 6 hours as needed for Pain, Mild. 30 Tab 02/10/20 21 Active Additional Information Patient not taking.Reported on 12/28/2024 Montelukast Sodium 10 MG Oral Tablet (Singulair) Take 1 Tab by mouth daily. 30 Tab 1 02/10/20 Active metFORMIN HCl ER 500 MG Oral Tablet Extended Release 24 Hour (Glucophage XR) Take 1 Tab by mouth daily. 30 Tab 02/10/20 21 Active Additional Information Patient taking differently:500 mg OralBID (.AM/PM), Reported on 01/03/2025 Insulin Glargine 100 UNIT/ML Subcutaneous Solution (Lantus) Inject 20 Units under the skin in the morning. Active Multivitamin Adults Oral Tablet Take by mouth. Activ e Atorvastatin Calcium 40 MG Oral Tablet (Lipitor) Take 1 Tablet by mouth in the morning. Active Escitalopram Oxalate 10 MG Oral Tablet (Lexapro) Take 1 Tablet by mouth in the morning. Active Loratadine 10 MG Oral Capsule Take 1 Capsule by mouth in the morning. Active Vitamin B 12 100 MCG Oral Lozenge Take 2 Lozenges by mouth at bedtime. Active Biotinex Oral Capsule Take 1 Capsule by mouth once. Active Glucosamine Chondr 500 Complex Oral Capsule Take 1 Capsule by mouth at bedtime. Active Clopidogrel Bisulfate 75 MG Oral Tablet (pLAVix) Take by mouth daily. 025 Discontin ued(Medic ation List Clean Up) Docusate Sodium 100 MG Oral Capsule (Colace) Take by mouth 1 Capsule 2 times a day as needed for Constipation. 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 Never 10/30/2020 Average Number of Drinks Not on file 021 Frequency of Binge Drinking Not on file 10/10 Sex and Gender Information Value Date Recorded Sex Assigned at Not on file Legal Sex Male 1:54 PM EDT Gender Identity Not on file Sexual Orientation Not on file documented as of this encounter Last Filed Vital Signs Vital Sign Reading Time Taken Comments Blood Pressure 108/58 01/03/2025 9:35 AM EDT Pulse 84 01/03/2025 9:35 AM EDT Temperature 36.3 °C (97.3 °F) 01/03/2025 9:20 AM ED T Respiratory Rate 14 01/03/2025 9:35 AM EDT Oxygen Saturation 98% 01/03/2025 9:35 AM EDT Inhaled Oxygen Concentration - - Weight 83 kg (183 lb) 01/03/2025 8:24 AM EDT Height 162.6 cm (5' 4") 01/03/2025 8:24 AM EDT Body Mass Index 31.41 01/03/2025 8:24 AM EDT documented in this encounter Functional Status * Are you deaf or do you have serious difficulty hearing? Answer Date of Assessment Author No 11/16/2021 5:28 PM Sharon Fung RN * Are you blind or do you have serious difficulty seeing, even when wearing glasses? Answer Date of Assessment Author No 11/16/2021 5:28 PM Sharon Fung RN * Do you have serious difficulty walking or climbing stairs? (5 years old or older) Answer Date of Assessment Author No 11/13/2021 11:40 AM Elin Smith RN * Do you have difficulty dressing or bathing? (5 years old or older) Answer Date of Assessment Author No 11/13/2021 11:40 AM Elin Smith RN * Because of a physical, mental, or emotional condition, do you have difficulty doing errands alone such as visiting a doctor’s office or shopping? (15 years old or older) Answer Date of Assessment Author No 11/13/2021 11:40 AM Elin Smith RN documented as of this encounter Mental Status * Because of a physical, mental, or emotional condition, do you have serious difficulty concentrating, remembering, or making decisions? (5 years old or older) Answer Entry Date Author No 11/16/2021 5:28 PM Sharon Fung RN documented in this encounter H&P Notes * Teodoro Rivera DO - 01/03/2025 8:25 AM EDT Endoscopy Pre-Procedure Assessment Name: Reese Cooney Date: 01/03/2025 Time: 8:25 AM Procedure(s): Colonoscopy; with Indication(s) of colon polyp surveillance Endoscopy Pre-Procedure Assessment: Prior to the procedure, the patient is identified. The patient's history, medications and allergieshave been reviewed. The patient is competent. The risks and benefits of the proposed procedure and the planned sedation have been discussed with the patient. All questions have been answered and informed consent for the procedure has been obtained. Prior to Admission medications Medication Sig Last Dose Discont. Biotinex Oral Capsule Take 1 Capsule by mouth once. Past Week Glucosamine Chondr 500 Complex Oral Capsule Take 1 Capsule by mouth at bedtime. Past Week Vitamin B 12 100 MCG Oral Lozenge Take 2 Lozenges by mouth at bedtime. 01/02/2025 at 8:00 AM Atorvastatin Calcium 40 MG Oral Tablet (Lipitor) Take 1 Tablet by mouth in the morning. 01/02/2025 at 8:00 AM Escitalopram Oxalate 10 MG Oral Tablet (Lexapro) Take 1 Tablet by mouth in the morning. 01/02/2025 at 8:00 AM Insulin Glargine 100 UNIT/ML Subcutaneous Solution (Lantus) Inject 20 Units under the skin in the morning. 01/02/2025 at 8:00 AM Loratadine 10 MG Oral Capsule Take 1 Capsule by mouth in the morning. 01/02/2025 at 8:00 AM Multivitamin Adults Oral Tablet Take by mouth. 01/02/2025 at 8:00 AM metFORMIN HCl ER 500 MG Oral Tablet Extended Release 24 Hour (Glucophage XR) Take 1 Tab by mouth daily. Patient taking differently: Take 1 Tablet by mouth in the morning and 1 Tablet before bedtime. 01/02/2025 at 8:00 AM Montelukast Sodium 10 MG Oral Tablet (Singulair) Take 1 Tab by mouth daily. 01/02/2025 at 8:00 AM amLODIPine Besylate 5 MG Oral Tablet (Norvasc) Take 1 Tablet by mouth in the morning. 01/02/2025 at 8:00 AM Aspirin 81 MG Oral Tablet Delayed Release Take 1 Tablet by mouth in the morning. 01/02/2025 at 8:00 AM Famotidine 20 MG Oral Tablet (Pepcid) Take 1 Tablet by mouth in the morning and 1 Tablet before bedtime. 01/02/2025 at 8:00 AM Acetaminophen 325 MG Oral Tablet (Tylenol) Take 3 Tabs by mouth every 6 hours as needed for Pain, Mild. Patient not taking: Reported on 12/28/2024 Over 30 Days Review of patient's allergies indicates: Allergen Reactions Metoprolol Other reaction(s): SOB Pulse 96 | Temp 36.4 °C (97.6 °F) (Tympanic) | Resp 18 | Ht 1.626 m (5' 4") | Wt 83 kg (183 lb) |SpO2 97% | BMI 31.41 kg/m² | BSA 1.94 m² Physical Exam: Mental Status Examination: alert and oriented. Airway Examination: normal oropharyngeal airway and neck mobility. Respiratory Examination: clear to auscultation. CV Examination: regular rate and rhythm and systolic murmur. ASA Grade: III - A patient with severe systemic disease. Abdomen: soft This patient has undergone a preprocedural evaluation. A determination has been made to proceed with the planned procedure under [facility] procedural guidelines and the [facility] Non-Emergent, Elective Medical Services and Treatment Recommendations (published on 12-14-19). The community and hospital prevalence of COVID-19 has been discussed as well as this patient's specific risks associated with SARS-CoV-19 infection. Based upon the clinical acuity and patient-specific care considerations, this procedure is deemed a Tier II - Intermediate acuity treatment or service with either progression or the threat of progressive disease related to the delay in treatment. Not providing the service has the potential for increasing morbidity or mortality. After reviewing the risks and benefits, the patient is deemed in satisfactory condition to undergo the procedure. The anesthesia plan is to use general anesthesia. I have discussed the risks of colonoscopy to include bleeding, infection, perforation, pain, missed polyps, and need for follow-up studies. Teodoro Rivera DO 01/03/2025 documented in this encounter Procedure Notes * Nuha Leigh PA-C - 01/03/2025 8:52 AM EDTAssociated Order(s): COLONOSCOPY [facility] Patient Name: Reese Cooney Procedure Date: 01/03/2025 8:52 AM Date of : 1950 Admit Type: Outpatient Note Status: Finalized Date of : 1950 Admit Type: Outpatient Age: 74 Room: [facility] Gender: Male Note Status: Finalized Procedure: Colonoscopy Indications: High risk colon cancer surveillance: Personal history of colonic polyps Providers: Teodoro Rivera DO (Doctor) Referring MD: Nuha Leigh (Referring MD) Medicines: General Anesthesia Complications: No immediate complications. Estimated blood loss: Minimal. Procedure: Pre-Anesthesia Assessment: - Prior to the procedure, a History and Physical was performed, and patient medications, allergies and sensitivities were reviewed. The patient's tolerance of previous anesthesia was reviewed. - The risks and benefits of the procedure and the sedation options and risks were discussed with the patient. All questions were answered and informed consent was obtained. - Patient identification and proposed procedure were verified prior to the procedure by the physician, the nurse and the older worker specialist. The procedure was verified in the procedure room. - Pre-procedure physical examination revealed no contraindications to sedation. - ASA Grade Assessment: III - A patient with severe systemic disease. - After reviewing the risks and benefits, the patient was deemed in satisfactory condition to undergo the procedure. - The anesthesia plan was to use general anesthesia. - Immediately prior to administration of medications, the patient was re- assessed for adequacy to receive sedatives. - The heart rate, respiratory rate, oxygen saturations, blood pressure, adequacy of pulmonary ventilation, and response to care were monitored throughout the procedure. - The physical status of the patient was re-assessed after the procedure. After I obtained informed consent, the scope was passed under direct vision. All instruments were visually inspected immediately before and after removal from the patient to ensure they are fully intact. Throughout the procedure, the patient's blood pressure, pulse, and oxygen saturations were monitored continuously. The colonoscopy was performed without difficulty. The patient tolerated the procedure well. The quality of the bowel preparation was good. The [id number] Colonoscope ([id number]) was introduced through the anus and advanced to the terminal ileum. Findings & Specimens: The perianal and digital rectal examinations were normal. Pertinent negatives include normal sphincter tone. The terminal ileum appeared normal. Three semi-sessile polyps were found in the transverse colon. The polyps were 3 to 4 mm in size. These polyps were removed with a cold snare. Resection and retrieval were complete. The pathology specimen was placed into Bottle Number 1. Estimated blood loss was minimal. Multiple small-mouthed diverticula were found in the sigmoid colon and descending colon. A 6 mm polyp was found in the sigmoid colon. The polyp was sessile. The polyp was removed with a cold snare. Resection and retrieval were complete. The pathology specimen was placed into Bottle Number 2. Estimated blood loss was minimal. Internal hemorrhoids were found during retroflexion. The hemorrhoids were moderate. The exam was otherwise without abnormality. Impression: - The examined portion of the ileum was normal. - Three 3 to 4 mm polyps in the transverse colon, removed with a cold snare. Resected and retrieved. - Mild diverticulosis in the sigmoid colon and in the descending colon. - One 6 mm polyp in the sigmoid colon, removed with a cold snare. Resected and retrieved. - Internal hemorrhoids. - The examination was otherwise normal. Recommendation: - The patient will be observed post-procedure, until all discharge criteria are met. - Advance diet as tolerated today. - Await pathology results. - Repeat colonoscopy in 5 years for surveillance based on pathology results. - Return to GI office PRN. Teodoro Rivera DO 01/03/2025 9:19:24 AM This report has been signed electronically. documented in this encounter Nursing Notes * Emerita Salmeron RN - 01/03/2025 9:53 AM EDT Patient is alert, pain free and tolerating po fluids prior to discharge. Patient has been visited by Dr. Teodoro Rivera. Patient has received and demonstrates understanding of discharge instructions. Patient ambulated to private auto accompanied by endo staff. * Emerita Salmeron RN - 01/03/2025 9:20 AM EDT Patient transferred to post endo s/p colonoscopy. Patient fully awake Respirations are even and unlabored on room air. NSR in the 80's on the monitor. Abdomen soft and non distended. Vital signs stable. * Davin Wong RN - 01/03/2025 9:19 AM EDT Specimen(s) and location(s) verified with physician post procedure 9:19 AM Davin Wong RN No abdominal pressure given See anesthesia record for medication administered during procedure. Davin Wong RN Pre cleaning of scope at the bedside started by fisheries technician. * Meghana Reynoso RN - 01/03/2025 8:29 AM EDT Patient prepped and ready for procedure. Call butler in reach. * Meghana Reynoso RN - 01/03/2025 8:09 AM EDT The following pt discharge instructions reviewed with pt prior to prodedure: No driving today. No alcohol today. No signing of legal documents. Rest as much as possible today and can return to normal activities tomorrow. No operating any heavy equipment today. Diet as tolerated. Pt verbalized understanding. * Smita Aguilera RN - 12/28/2024 9:53 AM EDT Call placed to patient home, spoke to patient . Extended Colonoscopy instructions reviewed. Instructed to take singular,lexapro,zyrtec,lipitor,norvasc,pepcid 2 hours prior to arrival. Diabetic patients will not take any diabetic medications the night before or the morning of procedure/surgery. Please contact PCP for insulin instructions for day of procedure. 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 If utility worker driver leaves the building, she/he must provide an emergency number to be reached. DO NOT WEAR ANY JEWELRY, MAKE-UP OR CONTACT LENSES. NO TOBACCO AFTER [place] THE NIGHT BEFORE PROCEDURE.FAILURE TO FOLLOW INSTRUCTIONS MAY RESULT IN POSTPONEMENT OF PROCEDURE. Arrival Time 0815 and Date 01-03-25 of appointment confirmed. Daughter will be responsible for transporting pt home [facility], the day of procedure. Phone number [phone] provided for questions. Transportation is available: [facility] [phone] [facility]- Dmv-[phone] OR Mrtn-[phone] * Smita Aguilera RN - 12/28/2024 8:51 AM EDT Called patient for pre anesthesia evaluation for upcoming procedure ,no answer. Left message on machine /request return call documented in this encounter Plan of Treatment Pending Results Name Type Priority Associated Diagnoses Date /Time SURGICAL PATHOLOGY Pathology Routine History of colon polyps Special screening for malignant neoplasms, colon Rectal bleeding 01/03/2025 9:18 AM EDT Scheduled Orders Name Type Priority Associated Diagnoses Order Schedule GLUCOSE METER, POINT OF CARE (COMMUNICATION ORDER) Point of Care Testing Routine Perform Now for 1 Occurrences starting 01/03/2025 until 01/03/2025 SURGICAL PATHOLOGY Pathology Routine History of colon polyps Special screening for malignant neoplasms, colon Rectal bleeding Release Upon Ordering for 1 Occurrences starting 01/03/2025, 1 completed Health Maintenance Due Date Last Done Comments Depression Monitoring 1961 Albumin/Creatinine Ratio 1967 Hepatitis C Screening 1967 Zoster Vaccines (2 of 3) 11/03/2011 09/08/2011 DTap/Tdap Vaccines (2 - Td or Tdap) 09/08/2021 09/08/2011 GFR 11/18/2022 11/18/2021, 11/06, 11/16/2021, Additional history exists COVID-19 Vaccine ( season) 2024 Influenza Vaccine (FLU shot) (Season Ended) 2025 06/11/2018, 06/09/2017, 07/19/2015, Additional history exists Colonoscopy 01/03/2030 01/03/2025, 04/09, 12/31/2018 Pneumococcal Vaccine: 50+ Years Completed 02/18/2018, 09/08/2012, 06/20/2012 RETIRED - COLONOSCOPY-EVERY 5 YRS AGES 18-100 Discontinued 01/03/2025, 05/02/2020, 12/31/2018 HPV (Gardasil) Vaccine Aged Out No lo nger eligible based on patient's age to complete this topic Hepatitis B Vaccine Aged Out No longe r eligible based on patient's age to complete this topic MENINGOCOCCAL (MENACTRA/MENVEO) Aged Out No longer eligible based on patient's age to complete this topic Meningitis B Vaccine (Bexsero/Trumemba) Aged Out No longer eligible based on patient's age to complete this topic documented as of this encounter Medical Devices Implanted Type Area Riprap Placer Device Identifier Shelf Expiration Date Model / Serial / Lot Mesh Soft [id number] - [id number] Implanted:Qty : 1 on 11/13/2021 by Edwardo Montgomery MD at [facility] N/A: Abdomen CR BARD : DAVOL [id number] 03/05/2026 [id number] / / [id number] documented as of this encounter Procedures Procedure Name Priority Date/Time Associated Diagnosis Comments GLUCOSE METER, POINT OF CARE MALCOM 01/03/2025 9:30 AM EDT COLONOSCOPY 01/03/2025 8:52 AM EDT GLUCOSE METER, POINT OF CARE MALCOM 01/03/2025 8:28 AM EDT documented in this encounter Results * GLUCOSE METER, POINT OF CARE (01/03/2025 9:30 AM EDT) Pathologist [facility] Glucose - POCT 113 70 - 120 mg/dL 01/03/2025 9:33 AM EDT LABORATORY [facility] 57-00 Blood Whole blood specimen / Unknown 01/03/2025 9:30 AM EDT 01/03/2025 9:33 AM EDT Teodoro Rivera DO LAB POINT OF CARE TE ST DOCKED DEVICE UNSOLICITED RESULTS Final Result [facility] [address] [place] [id number] * COLONOSCOPY (01/03/2025 8:52 AM EDT) 01/03/2025 8:52 AM EDT Narrative Procedure Note Nuha Leigh PA-C - 01/03/2025 8:52 AM EDT [facility] Patient Name: Reese Cooney Procedure Date: 01/03/2025 8:52 AM Date of : 1950 Admit Type: Outpatient Note Status:Finalized Date of : 1950 Admit Type: Outpatient Age: 74 Room: [facility] 3 Gender: Male Note Status: Finalized Procedure: Colonoscopy Indications: High risk colon cancer surveillance: Personalhistory of colonic polyps Providers: Teodoro Rivera DO (Doctor) Referring MD: Nuha Leigh (Referring MD) Medicines: General Anesthesia Complications: No immediate complications. Estimated blood loss:Minimal. Procedure: Pre-Anesthesia Assessment: - Prior to the procedure, a History and Physicalwas performed, and patient medications, allergies and sensitivities werereviewed. The patient's tolerance of previous anesthesia was reviewed. - The risks and benefits of the procedure and thesedation options and risks were discussed with the patient. All questions wereanswered and informed consent was obtained. - Patient identification and proposed procedurewere verified prior to the procedure by the physician, the nurse and the older worker specialist.The procedure was verified in the procedure room. - Pre-procedure physical examination revealed nocontraindications to sedation. - ASA Grade Assessment: III - A patient with severesystemic disease. - After reviewing the risks and benefits, thepatient was deemed in satisfactory condition to undergo the procedure. - The anesthesia plan was to use generalanesthesia. - Immediately prior to administration ofmedications, the patient was re-assessed for adequacy to receive sedatives. - The heart rate, respiratory rate, oxygensaturations, blood pressure, adequacy of pulmonary ventilation, and response to care weremonitored throughout the procedure. - The physical status of the patient wasre-assessed after the procedure. After I obtained informed consent, the scope waspassed under direct vision. All instruments were visually inspected immediatelybefore and after removal from the patient to ensure they are fully intact. Throughout the procedure, the patient's bloodpressure, pulse, and oxygen saturations were monitored continuously. The colonoscopy wasperformed without difficulty. The patient tolerated the procedure well. The qualityof the bowel preparation was good. The [id number] Colonoscope ([id number]) was introducedthrough the anus and advanced to the terminal ileum. Findings & Specimens: The perianal and digital rectal examinations were normal. Pertinentnegatives include normal sphincter tone. The terminal ileum appeared normal. Three semi-sessile polyps were found in the transverse colon. Thepolyps were 3 to 4 mm in size. These polyps were removed with a cold snare. Resection and retrieval werecomplete. The pathology specimen was placed into Bottle Number 1. Estimated blood loss was minimal. Multiple small-mouthed diverticula were found in the sigmoid colonand descending colon. A 6 mm polyp was found in the sigmoid colon. The polyp was sessile.The polyp was removed with a cold snare. Resection and retrieval were complete. The pathology specimenwas placed into Bottle Number 2. Estimated blood loss was minimal. Internal hemorrhoids were found during retroflexion. The hemorrhoidswere moderate. The exam was otherwise without abnormality. Impression: - The examined portion of the ileum was normal. - Three 3 to 4 mm polyps in the transverse colon,removed with a cold snare. Resected and retrieved. - Mild diverticulosis in the sigmoid colon and inthe descending colon. - One 6 mm polyp in the sigmoid colon, removed witha cold snare. Resected and retrieved. - Internal hemorrhoids. - The examination was otherwise normal. Recommendation: - The patient will be observed post-procedure,until all discharge criteria are met. - Advance diet as tolerated today. - Await pathology results. - Repeat colonoscopy in 5 years for surveillancebased on pathology results. - Return to GI office PRN. Teodoro Rivera DO 01/03/2025 9:19:24 AM This report has been signed electronically. Nuha Leigh PA-C [facility]STR[facility] Final Result * (ABNORMAL) GLUCOSE METER, POINT OF CARE (01/03/2025 8:28 AM EDT) Glucose - POCT 132(H) 70 - 120 mg/dL 01/03/2025 8:31 AM EDT [facility] Blood Whole blood specimen / Unknown 01/03/2025 8:28 AM EDT 01/03/2025 8:31 AM EDT Teodoro Rivera DO LAB POINT OF CARE TE ST DOCKED DEVICE UNSOLICITED RESULTS Final Result [facility] [address] [place] [id number] documented in this encounter Visit Diagnoses Diagnosis History of colon polyps Personal history of colonic polyps Special screening for malignant neoplasms, colon Rectal bleeding Hemorrhage of rectum and anus documented in this encounter Administered Medications Inactive Administered Medications - up to 3 most recent administrations Medication Order MAR Action Action Date Dose Rate Site Isolyte-S pH 7.4 infusion Intravenous, at 100 mL/hr, Plasma-LYTE 148, isolyte-S, and isolyte-S pH 7.4 are considered equivalent - including for MAR barcode scanning., CONTINUOUS, Starting on Fri01/03/25 at 0845, Until Fri01/03/25 at 1356, Pre-Op Continue from Pre-Op 01/03/2025 8:57 AM EDT 100 mL/hr New Bag 01/03/2025 8:28 AM EDT 100 mL/hr documented in this encounter Active and Recently Administered Medications Times are shown in EDT. Continuous Medication Order 01/01/2025 01/02/2025 01/03/2025 Isolyte-S pH 7.4 infusion Intravenous, at 100 mL/hr, Plasma-LYTE 148, isolyte-S, and isolyte-S pH 7.4 are considered equivalent - including for MAR barcode scanning., CONTINUOUS, Starting on Fri01/03/25 at 0845, Until Fri01/03/25 at 1356, Pre-Op 0828 (New Bag - Prov ider: Meghana Reynoso RN)0857 (Continue from Pre-Op - Provider: Carlos Eduardo Quinn CRNA)0918 (Anes Intra-Op Fluid - Provider: Carlos Eduardo Quinn CRNA) documented in this encounter Advance Directives * Full Code (Latest Code Status on File) Date Activated Date Inactivated Comments 11/13/2021 10:25 AM 11/18/2021 2:14 PM This order r eflects the patients wishes and were consensually agreed upon. * Full Code Date Activated Date Inactivated Comments 02/07/2021 12:38 PM 02/09/2021 3:41 PM Question Answer Comments Discussion of Advance Directives occurred with: Not Discussed Does the patient have a Living Will? No Does the patient have Health Care Power of Attor donny? No * Full Code Date Activated Date Inactivated Comments 02/07/2021 9:37 AM 02/07/2021 12:37 PM This order re flects the patients wishes and were consensually agreed upon. Question Answer Comments Discussion of Advance Directives occurred with: Not Discussed * Full Code Date Activated Date Inactivated Comments 11/20/2020 9:02 AM 11/20/2020 2:15 PM Question Answer Comments Discussion of Advance Directives occurred with: Not Discussed * Full Code Date Activated Date Inactivated Comments 11/20/2020 6:44 AM 11/20/2020 9:02 AM This order r eflects the patients wishes and were consensually agreed upon. Question Answer Comments Discussion of Advance Directives occurred with: Not Discussed Care Teams Tool Crib Attendant Relationship Specialty Start Date End Date [facility] Leigh [facility] [address] [facility] [id number] [facility] - General Physician Academic Support Director 03/23/20 documented as of this encounter
--- OUTSIDE RECORDS SUMMARY | 2025-01-12 19:19 | External Medical Summary ---
Author Name Unknown Address Unknown Organization : Laboratory Report Ordering Provider Test Date Status IFRAH OLMOS 01/03/2025 09:30:24 Final Observation Date Value Abnormality Reference (Units ) Status Glucose Point of Care 01/03/2025 09:30:24 113 70-120 (mg/dL) Final Performing Location
--- OUTSIDE RECORDS SUMMARY | 2025-01-12 19:19 | External Medical Summary ---
Author Name Unknown Address Unknown Organization : Laboratory Report Ordering Provider Test Date Status IFRAH OLMOS 01/03/2025 08:28:08 Final Observation Date Value Abnormality Reference (Units ) Status Glucose Point of Care 01/03/2025 08:28:08 132 Above high normal 70-120 (mg/dL) Final Performing Location
--- NOTE | 2025-01-12 20:16 | Cardiac Catheterization ---
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 Cardiac Status Clinical evaluation leading to the procedure CAD Presenation: STEMI Anginal Classification: CCS IV Diagnostic Physicians Name: Piyush Archer MD Closure Device Recommendations: PCI without planned CABG Cardiac Cath Procedure Full Procedure Date January 12, 2025 Pre-Procedure Diagnosis Pre-Procedure Diagnosis: STEMI AUC Score AUC Score: 9 Post-Procedure Diagnosis Post-Procedure Diagnosis: Severe CAD, Successful PCI and Normal Intracardiac Pressures Procedure(s) Performed Procedure(s) Performed: Coronary Angiography, Left Heart Cath and Drug Eluting Stent Medical Billing Assistant Piyush Archer MD Woods Superintendent(s) Pretty Estimated Blood Loss Estimated Blood Loss: 25 Medication(s) Medication(s): Fentanyl, Heparin, Lidocaine 1%, Nicardipine, Nitroglycerin and Versed Medication(s): Ticagrelor Summary of Findings Indication: STEMI/Heart Alert Access: 6 Fr slender right radial artery Catheters: [place], JR4 guide, pigtail Findings: LM -normal caliber, 20% distal stenosis LAD -small caliber, 30% ostial, mid segment luminal irregularities, distal vessel small and tapers prior to apex. Medium D1 30% ostial. Small D2 without disease. Circumflex -small caliber, mid segment luminal irregularities. High OM1 without significant disease. Medium OM 2 with 30% proximal stenosis. RCA -dominant, medium caliber, 100% acute mid RCA occlusion just before prior stent. LVEDP -18 -- PCI -- Antithrombotic therapy: Heparin, ticagrelor Procedure: RCA cannulated with JR4 guide Draw Bench Operator 50 wire passed across lesion into distal vessel Mid RCA lesion predilated with 2.5 compliant balloon After flow reestablished vessel appeared larger and stent appeared under expanded. Stent further dilated with 3.5 NC balloon With the aid of a GuideLiner dilated lesion stented with 3.5 x 18 mm Wade drug- eluting stent extending across proximal aspect of prior stent Stent post-dilated with 4.0 noncompliant balloon IC vasodilators administered for spasm Questionable edge dissection at distal aspect of old stent after NC balloon inflation Additional RAFITA (3.0 x 8 mm Wade) placed to mid RCA overlapping distal aspect of old stent and stent postdilated with stent balloon to high atmospheres Post procedure ABIMAEL 3 flow, stents well expanded with minimal residual stenosis and no apparent cardiac complications. Arterial Closure: TR band Summary: 1. Inferior STEMI/100% acute mid RCA occlusion involving prior stent (very late stent thrombosis). 2. Mild to moderate non-culprit coronary artery disease - 30% distal left main 3. Borderline intracardiac filling pressure 4. Successful PCI of mid RCA with 2 additional drug-eluting stents (3.5 x 18 [place] overlapping proximal aspect of old stent, 3.0 x 8 mm Wade overlapping distal aspect of prior old stent). Recommendations: Admit to ICU for continued monitoring Loaded with ticagrelor 180 mg Continue dual-antiplatelet therapy for at least 1 year. Consider extended P2Y12 in the setting of overlapping stents Trend troponins until peak, Check Echo Uptitrate beta-vera/ARB as BP allows High-dose statin Smoking cessation Hemodynamics Rest Ao:: 129/82/123 Final Ao: 100/56/74 LV: 103/18 Recommendations Recommendations: PCI without planned CABG Specimens Specimens: None Radiation Exposure (mGy) 1660 Contrast (mls) 65 Anesthesia Moderate 6734-9465 Procedural Complication(s) None Disposition ICU I attest to the content of the Intraoperative Record and any orders documented therein. Any exceptions are noted below. [facility] Card Cath Procedure Codes Cardiac Catheterization Procedure 1: Cardiovascular Cath Procedures: 67802 Coronaries and LHC (+/-LV) Moderate Sedation Procedure 1: Sedation/Anesthesia: 23148 Mod Sedation by the same physician;Init15 Min Child Age 5 & Up Procedure 2: Sedation/Anesthesia: 83733 Mod Sedation by the same physician; Ea [id number] Minutes Stenting Procedure 1: Cardiovascular Stent Procedures: 71498 Perc transluminal revascularization of acute sub/total occl, aMI PG Care Time/CCT Total # of Minutes Spent Total Time Spent with Patient: Total time spent is greater than 50% in coordination of care (as documented) at patient's floor/unit and/or counseling patient:
--- NOTE | 2025-01-12 20:24 | Communication Note ---
Date of Service: January 12, 2025 Notified by RN of continued chest pain, episode of emesis. Patient received Maalox around 1800 but vomited it up. On examination he is AAOx3. Pleasant and conversant, NAD. HD stable. CP described as pressure radiating across the chest. Rates the pain 3/10. No further nausea. Warm and well-perfused. EKG performed without ischemic changes, significantly improved from prior. Patient does have small amount of residual disease. He admits to significant GERD and unable to take his H2B today. #PPCP (Post-percutaneous coronary intervention chest pain), non-ischemic Given normal EKG, low suspicion for ongoing ischemia or vasospasm. Acetaminophen for mild pain, morphine for severe pain. Continue to trend troponin. Close clinical monitoring. D/w Dr. Henriquez. Dr. Archer also aware of CP around 1730 without further recommendations. Addendum 2129: Pain now 0/10 with repositioning to L side as well as Tylenol. Coding Level of Care Code None
[2025-01-12] MEDS: FAMOTIDINE 20 MG TAB PO SCH (20:54)
[2025-01-12] MEDS: TICAGRELOR 90 MG TAB PO SCH (20:55)
[2025-01-12] MEDS: diphenhydrAMINE Capsule 25 MG CAP PO ONE (23:41)
[2025-01-12] MEDS: MELATONIN 3 MG TAB PO PRN (23:48)
[2025-01-13 05:17] LABS: Basophils # (auto) 0.04 K/uL (0.00-0.20); Basophils % (auto) 0.3 %; Eosinophils # (auto) 0.12 K/uL (0.00-0.50); Eosinophils % (auto) 0.8 %; Hematocrit (blood only) 44.5 % (42.0-52.0); Hemoglobin 15.1 g/dl (14.0-18.0); Immature Granulocytes # (auto) 0.06 K/uL (0.01-0.20); Immature Granulocytes % (auto) 0.4 %; Lymphocytes # (auto) 2.42 K/uL (1.20-3.40); Lymphocytes % (auto) 16.4 %; Mean Corpuscular Hgb Conc 33.9 g/dL (32.0-36.0); Mean Corpuscular Volume 88.3 fL (80.0-100.0); Mean Platelet Volume 10.2 fL (9.4-12.4); Monocytes # (auto) 1.01 K/uL (0.11-0.59); Monocytes % (auto) 6.9 %; Neutrophils # (auto) 11.08 K/uL (1.40-6.50); Neutrophils % (auto) 75.2 %; Platelet Count 317 K/uL (130-400); RDW Standard Deviation 42.2 fL (36.4-46.3); Red Blood Count 5.04 M/uL (4.70-6.10); White Blood Count 14.73 K/ul (4.8-10.8)
[2025-01-13] MEDS: ALBUTEROL 0.083% NEBU SOLN 3 ML VIAL NEB PRN (05:18)
[2025-01-13 05:41] LABS: Chol HDL Ratio 2.6 (0-5)
[2025-01-13 05:43] LABS: Calcium 9.5 mg/dl (8.6-10.3); Magnesium 2.1 mg/dl (1.7-2.4); Potassium 4.5 mmol/L (3.5-5.1)
[2025-01-13 05:49] LABS: BUN Creatinine Ratio 18.2 (10-20); Chol HDL Ratio 2.6 (0-5); Creatinine Clr Calc Pharmacy 70.6 ml/min
[2025-01-13] MEDS: ICU ELECTROLYTE REPLACEMENT PROTOCOL SCH (05:54)
[2025-01-13] MEDS: POT PHOSPHATE MONOBASIC W/ SOD TAB PO SCH (06:11)
[2025-01-13 06:21] LABS: Troponin I High Sensitivity 48637.5 pg/ml (0-20)
[2025-01-13] MEDS: LANTUS PER UNIT CHARGE SQ SCH (08:17)
[2025-01-13] MEDS: ASPIRIN 81 MG ECTAB PO SCH (08:18)
[2025-01-13] MEDS: NICOTINE 7 MG/24 HR TDSY TD SCH (08:18)
[2025-01-13] MEDS: ATORVASTATIN 40 MG TAB PO SCH (08:18)
[2025-01-13] MEDS: carvediloL 3.125 MG TAB PO SCH (08:19)
[2025-01-13] MEDS: PANTOprazole 40 MG TAB PO SCH (08:19)
[2025-01-13] MEDS: MONTELUKAST SODIUM 10 MG TABLET PO SCH (08:19)
[2025-01-13] MEDS: LOSARTAN POTASSIUM 25 MG TAB PO SCH (08:19)
[2025-01-13] MEDS: ESCITALOPRAM OXALATE 10 MG TAB PO SCH (08:19)
[2025-01-13] MEDS ORDERED: ASPIRIN 81 MG ECTAB PO SCH (09:00)
[2025-01-13] MEDS ORDERED: ATORVASTATIN 40 MG TAB PO SCH (09:00)
--- NOTE | 2025-01-13 09:00 | Critical Care Progress Note ---
Date of Service January 13, 2025 Assessment & Plan (1) STEMI (ST elevation myocardial infarction): (2) Tobacco abuse counseling: (3) Hyponatremia: Plan Reese Cooney is a 74-year-old male with past medical history of asthma, hyperlipidemia, hypertension, anxiety, CAD w/ 1 stent to RCA, Diabetes Mellitus Type II, anxiety, GERD, and current 1ppd smoker; who presented to [facility] on 01/12/2025 with chest pain found to have an inferior STEMI s/p 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 Holding losartan this morning due to borderline low blood pressures. -Cont ASA and ticagrelor -TTE with mildly reduced EF. - Follow-up A1c. May require diabetic education counseling. Lipids reviewed. Continue statin. Smoking cessation -Discussed with patient who is open to quitting -recommend further discussions on options for quitting Hyponatremia - Mild pseudohyponatremia related to hyperglycemia. Continue to monitor closely. Continue heart healthy diet. Otherwise, replace electrolytes as needed. Okay to transfer out of ICU. Transfer orders to be placed. Admission and Anticipated Discharge Date Admission Date: January 12, 2025 Subjective Patient notes that he slept poorly last night. He has not some mild epigastric pain yesterday evening and received morphine. He does endorse chronic anxiety and notes that he did not receive his Lexapro yesterday. He denies any chest pain or shortness of breath this morning. He has a good appetite and is requesting breakfast and coffee. His blood pressures are on the soft side with a systolic blood pressure in the 90s which she reports is not unusual for him. His losartan is being held this morning. Review of Systems Review of Systems: All systems reviewed & are unremarkable except as noted in HPI & below Physical Exam Physical Exam: General: Patient lying in bed in no acute distress. HEENT: Sclerae anicteric, atraumatic, normocephalic Lungs: Clear to auscultation bilaterally. Chest rise symmetrical. Breathing nonlabored. Cardiac: Regular rate and rhythm, no murmurs, rubs, or gallops. S1/S2 present. Vascular: 2+ radial pulse on left. Good cap refill. Abdomen: Soft, nontender, nondistended. Normoactive bowel Extremities: Well perfused, no peripheral edema Neuro: No focal weakness. no numbness/tingling. 5/5 all extremities, follows commands, speech clear, face symmetric. Psych: Alert orient x3, normal affect and mood Results & Data Results & Data Vital Signs (Past 12 Hours) Vital Signs Temp Pulse Pulse Resp BP Pulse Ox O2 Del Method 01/13/25 07:55 107/70 01/13/25 07:42 92 H 22 93 Room Air 01/13/25 06:21 36.5 C 95 H 20 130/78 95 01/13/25 05:18 88 16 93 Room Air 01/13/25 05:00 90 20 158/91 H 95 01/13/25 04:01 141/88 H 01/13/25 04:01 141/88 H 01/13/25 04:00 88 16 91 01/13/25 03:15 83 18 95 01/13/25 03:00 104/62 01/13/25 02:48 93 H 34 H 96 01/13/25 02:00 120/76 01/13/25 01:51 93 H 16 95 01/13/25 01:00 127/77 01/13/25 01:00 90 16 94 01/13/25 00:09 93 H 20 95 01/13/25 00:00 133/99 01/13/25 00:00 36.7 C 133/99 01/13/25 00:00 86 01/12/25 23:54 86 23 90 01/12/25 23:00 88 17 01/12/25 22:12 84 15 92 01/12/25 22:00 117/66 01/12/25 21:54 81 20 91 01/12/25 21:06 90 15 92 Coding Level of Care Code 44832 SUB INP/OBS CARE 2/35MIN Diagnoses STEMI (ST elevation myocardial infarction) I21.3 Tobacco abuse counseling Z71.6 Hyponatremia E87.1
[2025-01-13 10:19] LABS: Estimated Average Glucose 151 mg/dl; Hemoglobin A1C 6.9 % (4.5-5.6)
--- NOTE | 2025-01-13 12:56 | Hospitalist Progress Note ---
Date of Service January 13, 2025 Assessment & Plan (1) STEMI (ST elevation myocardial infarction): Plan: Reese is a 74yo M with a hx CAD, HTN, DM2, asthma who presented with sudden onset ches tpain and who was brought to the [facility] emergently for STEMI admitted to the ICU s/p 2 RAFITA due to mid RCA occlusion. Inferior STEMI/ischemic cardiomyopathy Prior history of CAD with RAFITA to RCA. 01/12 s/p PCI DESx2 to RCA just proximal to prior stent Echo 01/12 shows LVEF 40%. Inferior, inferolateral severe hypokinesis to akinesis. Wall motion abnormality noted and LV dysfunction is new. Creatinine is at baseline Troponin peaked at 65,000 Cardiology involved On aspirin, Brilinta, Coreg 3.125, losartan 25, Lipitor 80 Advised on smoking cessation Type II DM Home glargine 20 units daily continued SSI CF 40/CR 15 Goal BSG 515608 Glucose checks AC/at bedtime DM2/heart healthy diet Hold semaglutide while inpatient. A1c 6.9 Hypertension Carvedilol, losartan as noted Asthma Continue Symbicort twice daily Albuterol as needed Continue montelukast - Mointor for dyspnea w/ addition of coreg and 2/2 hx of dyspnea on metoprolol GERD Continue Pepcid daily DVT prophylaxis: S/p heparin bolus and DAPT for heart alert. SCDs. Diet: Heart healthy/DM2 CODE STATUS: Disposition: Transfer out of ICU (2) RODRIGUEZ (dyspnea on exertion): (3) Seasonal allergies: (4) Type II diabetes mellitus, well controlled: (5) Controlled type 2 diabetes mellitus with circulatory disorder: Admission and Anticipated Discharge Date Admission Date: January 12, 2025 Subjective Patient feels well today. Denies chest pain or shortness of breath. Review of Systems Review of Systems: All systems reviewed & are unremarkable except as noted in Subjective Physical Exam Physical Exam: General: Awake, conversant Heart: S1, S2/regular rate and rhythm, no murmur rubs or gallops Lungs: Clear to auscultation bilaterally. Normal effort Abdomen: Soft/nontender/nondistended. No hepatosplenomegaly Extremities: No clubbing/cyanosis. No edema Behavior: Appropriate, cooperative Results & Data Results & Data Vital Signs (Past 12 Hours) Vital Signs Temp Pulse Pulse Resp BP Pulse Ox O2 Del Method 01/13/25 10:39 81 01/13/25 10:06 85 17 01/13/25 09:44 127/72 01/13/25 08:00 37.0 C 01/13/25 07:55 107/70 01/13/25 07:42 92 H 22 93 Room Air 01/13/25 06:21 36.5 C 95 H 20 130/78 95 01/13/25 05:18 88 16 93 Room Air 01/13/25 05:00 90 20 158/91 H 95 01/13/25 04:01 141/88 H 01/13/25 04:01 141/88 H 01/13/25 04:00 88 16 91 01/13/25 03:15 83 18 95 01/13/25 03:00 104/62 01/13/25 02:48 93 H 34 H 96 01/13/25 02:00 120/76 01/13/25 01:51 93 H 16 95 01/13/25 01:00 127/77 01/13/25 01:00 90 16 94 Laboratory Results Abnormal lab results 01/12/25 01/12/25 01/12/25 Range/Units 13:15 16:13 17:05 WBC (4.8-10.8) K/ul Neut # (Auto) (1.40-6.50) K/uL Ray # (Auto) (0.11-0.59) K/uL Sodium (136-145) mmol/L Anion Gap (3-11) Glucose (70-99(Fasting)) mg/dl POC Glucose 127 H 151 H (70-99) mg/dl Hemoglobin A1c (4.5-5.6) % Phosphorus (2.5-4.9) mg/dl Troponin I High Sens 79556.4 H* D (0-20) pg/ml Triglycerides (0-150) mg/dl VLDL Cholesterol, Calc (0-30) mg/dl 01/12/25 01/12/25 01/13/25 Range/Units 20:47 23:28 04:35 WBC 14.73 H (4.8-10.8) K/ul Neut # (Auto) 11.08 H (1.40-6.50) K/uL Ray # (Auto) 1.01 H (0.11-0.59) K/uL Sodium 132 L (136-145) mmol/L Anion Gap 2 L (3-11) Glucose 200 H (70-99(Fasting)) mg/dl POC Glucose 109 H (70-99) mg/dl Hemoglobin A1c 6.9 H (4.5-5.6) % Phosphorus 2.0 L (2.5-4.9) mg/dl Troponin I High Sens 06027.4 H* 37048.5 H* D (0-20) pg/ml Triglycerides 176 H (0-150) mg/dl VLDL Cholesterol, Calc (0-30) mg/dl 01/13/25 01/13/25 01/13/25 Range/Units 04:35 04:35 07:11 WBC (4.8-10.8) K/ul Neut # (Auto) (1.40-6.50) K/uL Ray # (Auto) (0.11-0.59) K/uL Sodium (136-145) mmol/L Anion Gap (3-11) Glucose (70-99(Fasting)) mg/dl POC Glucose 151 H (70-99) mg/dl Hemoglobin A1c (4.5-5.6) % Phosphorus (2.5-4.9) mg/dl Troponin I High Sens (0-20) pg/ml Triglycerides 188 H (0-150) mg/dl VLDL Cholesterol, Calc 35 H 38 H (0-30) mg/dl 01/13/25 Range/Units 11:07 WBC (4.8-10.8) K/ul Neut # (Auto) (1.40-6.50) K/uL Ray # (Auto) (0.11-0.59) K/uL Sodium (136-145) mmol/L Anion Gap (3-11) Glucose (70-99(Fasting)) mg/dl POC Glucose 133 H (70-99) mg/dl Hemoglobin A1c (4.5-5.6) % Phosphorus (2.5-4.9) mg/dl Troponin I High Sens (0-20) pg/ml Triglycerides (0-150) mg/dl VLDL Cholesterol, Calc (0-30) mg/dl PG Care Time/CCT Total # of Minutes Spent Total Time Spent with Patient: Total time spent is greater than 50% in coordination of care (as documented) at patient's floor/unit and/or counseling patient: Coding Level of Care Code 87601 SUB INP/OBS CARE 235MIN Diagnoses STEMI (ST elevation myocardial infarction) I21.3 RODRIGUEZ (dyspnea on exertion) R06.09 Seasonal allergies J30.2 Type II diabetes mellitus, well controlled E11.9 Controlled type 2 diabetes mellitus with circulatory disorder E11.59
--- NOTE | 2025-01-13 12:58 | Cardiology Progress Note ---
Date of Service January 13, 2025 Assessment & Plan (1) CAD (coronary artery disease): Plan: Inferior STEMIpost 2 new RAFITA to mid RCA Minimal residual on culprit disease 2. Ischemic cardiomyopathyEF 40 to 45%, inferior/inferolateral wall motion abnormality 3. Type 2 [id number] 6.9, on GLP-1 4. Hypertension 5. Dyslipidemia 6. Tobacco abuse Doing well today from a cardiac standpoint No additional chest pain. Troponins peaked. Hemodynamically stable, blood pressure well-controlled. Minimal ventricular ectopy this morning. No apparent access site complications. Would like him to be up out of bed, and walk the halls. If no recurrent symptoms/ectopy okay with discharge later this afternoon. Home on DAPT with aspirin, Ticagrelor Continue current statin Home on new losartan, carvedilol Start Jardiance or Farxiga Resume GLP-1 as an outpatient. Continue PPI Will arrange follow-up with in 1 to 2 weeks. Appreciate ICU team and hospital medicine care. Admission and Anticipated Discharge Date Admission Date: January 12, 2025 Subjective Had mild chest discomfort yesterday evening which resolved with Tylenol. No additional pain overnight. Had some difficulty sleeping with today states feeling well. No chest pain or shortness of breath. Wanting to go home. Telemetry reviewed1 episode of NSVT last night. Few PVCs, 1 run of 3 beats this morning Review of Systems Review of Systems: All systems reviewed & are unremarkable except as noted in HPI & below Physical Exam Physical Exam: General: Comfortable HEENT: Sclerae anicteric Lungs: Clear to auscultation bilaterally Cardiac: Regular rate and rhythm, no murmurs. Vascular: Right radial artery access site with no ecchymosis, hematoma. Distal pulse and sensation intact. Abdomen: Soft, nontender Extremities: Well perfused, no peripheral edema Neuro: Nonfocal Psych: Alert orient x3, normal affect and mood Results & Data Vital Signs (Past 12 Hours) Vital Signs Temp Pulse Pulse Resp BP Pulse Ox O2 Del Method 01/13/25 10:39 81 01/13/25 10:06 85 17 01/13/25 09:44 127/72 01/13/25 08:00 98.6 F 01/13/25 07:55 107/70 01/13/25 07:42 92 H 22 93 Room Air 01/13/25 06:21 97.7 F 95 H 20 130/78 95 01/13/25 05:18 88 16 93 Room Air 01/13/25 05:00 90 20 158/91 H 95 01/13/25 04:01 141/88 H 01/13/25 04:01 141/88 H 01/13/25 04:00 88 16 91 01/13/25 03:15 83 18 95 01/13/25 03:00 104/62 01/13/25 02:48 93 H 34 H 96 01/13/25 02:00 120/76 01/13/25 01:51 93 H 16 95 01/13/25 01:00 127/77 01/13/25 01:00 90 16 94 PG Care Time/CCT Total # of Minutes Spent Total Time Spent with Patient: Total time spent is greater than 50% in coordination of care (as documented) at patient's floor/unit and/or counseling patient: Coding Level of Care Code 98922 SUB INP/OBS CARE 3/50MIN Diagnoses CAD (coronary artery disease) I25.10
[2025-01-13 19:22] VITALS: RESP 18
[2025-01-14 05:36] LABS: Basophils # (auto) 0.05 K/uL (0.00-0.20); Basophils % (auto) 0.5 %; Eosinophils # (auto) 0.13 K/uL (0.00-0.50); Eosinophils % (auto) 1.2 %; Hematocrit (blood only) 39.3 % (42.0-52.0); Hemoglobin 13.6 g/dl (14.0-18.0); Immature Granulocytes # (auto) 0.04 K/uL (0.01-0.20); Immature Granulocytes % (auto) 0.4 %; Lymphocytes % (auto) 15.4 %; Mean Corpuscular Hemoglobin 30.4 pg (25.0-34.0); Mean Corpuscular Hgb Conc 34.6 g/dL (32.0-36.0); Mean Corpuscular Volume 87.9 fL (80.0-100.0); Mean Platelet Volume 10.2 fL (9.4-12.4); Monocytes # (auto) 0.97 K/uL (0.11-0.59); Monocytes % (auto) 8.8 %; Neutrophils # (auto) 8.14 K/uL (1.40-6.50); Neutrophils % (auto) 73.7 %; Platelet Count 254 K/uL (130-400); RDW Coefficient of Variation 12.9 % (11.5-14.5); RDW Standard Deviation 41.8 fL (36.4-46.3); Red Blood Count 4.47 M/uL (4.70-6.10); White Blood Count 11.03 K/ul (4.8-10.8)
[2025-01-14 06:01] LABS: BUN Creatinine Ratio 17.8 (10-20); Calcium 9.1 mg/dl (8.6-10.3); Creatinine Clr Calc Pharmacy 69.1 ml/min; Phosphorus 2.8 mg/dl (2.5-4.9); Potassium 4.3 mmol/L (3.5-5.1)
[2025-01-14 08:09] VITALS: BP 121/75; PULSE 84; TEMP 97.9; O2SAT 94
--- NOTE | 2025-01-14 10:03 | Discharge Summary ---
Date of Service January 14, 2025 Admission HPI Per Admitting Provider Reese is a 74-year-old male with a past medical history of type II DM, hypertension, CAD with distant history of RAFITA to RCA who was out hunting when he developed the sudden onset of severe substernal chest pain. Presented to the ER as a heart alert. Prehospital EKG consistent with inferior STEMI. He was given full dose aspirin, 3 nitro, 6 mg of morphine. Was subsequently given ticagrelor load 180 mg, heparin bolus, and brought emergently to the Physician Allergist Immunologist. Reese is seen at the bedside with family. He is seen briefly in the emergency department prior to being taken to the Physician Allergist Immunologist. Subsequently seen in the ICU post catheterization. He reports that he has a history of an RCA stent many years ago. No chest pain since that time up until morning of presentation. He does get some shortness of breath at baseline and wheezing, has followed with multiple doctors and is told he may have COPD/asthma but that this is mild. While he was [place] hunting he had the sudden onset of severe chest pain which radiated into his left jaw and with a 910/10 intensity. He was seen in the Physician Allergist Immunologist and was found to have an RCA occlusion for which he received 2 stents. On reassessment he reports he feels that his pain has completely resolved. He denies chest pain chest pressure shortness of breath dyspnea sweating or discomfort at time of bedside evaluation. His right radial TR band is in place and he has no pain at the site or change in sensation in his fingertips. Reports he has started smoking many cigars which he uses regularly and would like a nicotine patch. Cessation recommended. No alcohol use. Reported as having dyspnea to metoprolol on his allergy list, he does not remember this reaction. Medical History: Reviewed Medications: Reviewed Surgical History: Reviewed Family history: Reviewed Allergies: Reviewed Social History: Tobacco/mini cigar use. no etoh Code Status: Full Principal Diagnosis Inferior ST elevation AR status post drug-eluting stent right coronary artery Ischemic cardiomyopathy Active nicotine dependence Discharge Exam General: Awake, conversant Heart: S1, S2/regular rate and rhythm, no murmur rubs or gallops Lungs: Clear to auscultation bilaterally. Normal effort Abdomen: Soft/nontender/nondistended. No hepatosplenomegaly Extremities: No clubbing/cyanosis. No edema Behavior: Appropriate, cooperative Discharge Data Allergies Allergy/AdvReac Type Severity Reaction Status Date / Time amoxicillin Allergy Mild RASH Verified 08/12/24 09:56 metoprolol Allergy Mild S.O.B. Verified 08/12/24 09:56 fluticasone AdvReac unknown Verified 08/12/24 09:56 [From Advair Diskus] salmeterol AdvReac unknown Verified 08/12/24 09:56 [From Advair Diskus] Consultations 01/12/25 11:41 ED Decision to Admit Stat 01/12/25 16:27 Consult Salesperson Parts Routine Procedures Performed Operation Date: 01/12/25 11:45 Actual Procedures p Aspiration/PCI w/RAFITA for Stemi - Piyush Archer MD s Cineradiography w/Routine Exam - Piyush Archer MD Ordered Studies 01/12/25 11:35 CL Cath Imgs for PACS use only Stat Hospital Course (1) STEMI (ST elevation myocardial infarction): Reese is a 74yo M with a hx CAD, HTN, DM2, asthma who presented with sudden onset ches tpain and who was brought to the laborer cheesemaking emergently for STEMI admitted to the ICU s/p 2 RAFITA due to mid RCA occlusion. Inferior STEMI/ischemic cardiomyopathy Prior history of CAD with RAFITA to RCA. 01/12 s/p PCI DESx2 to RCA just proximal to prior stent Echo 01/12 shows LVEF 40%. Inferior, inferolateral severe hypokinesis to a kinesis. Wall motion abnormality noted and LV dysfunction is new. Creatinine is at baseline Troponin peaked at 65,000 Cardiology involved On aspirin, Brilinta, Coreg 3.125, losartan 25, Lipitor 80 Advised on smoking cessation Cleared for discharge by cardiology Advised to follow-up with cardiology in 1 to 2 weeks Type II DM Home glargine 20 units daily continued SSI CF 40/CR 15 Goal BSG [id number] Glucose checks AC/at bedtime DM2/heart healthy diet Hold semaglutide while inpatient. A1c 6.9 Cardiology recommended Jardiance but the patient is on Ozempic. This can be decided on outpatient by his PCP and engine lathe tender Hypertension Carvedilol, losartan as noted Asthma Continue Symbicort twice daily Albuterol as needed Continue montelukast - Mointor for dyspnea w/ addition of coreg and 2/2 hx of dyspnea on metoprolol GERD Continue Pepcid daily Deemed stable for discharge Patient is happy to know that he is being discharged today. His chest pain-free and is walking around in the room in the hallway. (2) RODRIGUEZ (dyspnea on exertion): (3) Seasonal allergies: (4) Type II diabetes mellitus, well controlled: (5) Controlled type 2 diabetes mellitus with circulatory disorder: Total Time Total Time Spent Total Time Spent (In Minutes): 35 Discharge Plan Discharge Items Patient Disposition: Home - Self-Care Reason For Visit: STEMI Discharge Diagnosis: Inferior ST elevation AR status post drug-eluting stent right coronary artery Ischemic cardiomyopathy Active nicotine dependence Condition on Discharge: Serious Activity: Resume your previous activity Non-emergency contact: Primary Care Provider Call non-emergency contact if: you have any medication questions and your symptoms worsen Follow-up/Referrals: Frank Duffy Jr, MD, FACC [Physician] - 01/20/25 9:30 am (Hospital follow up scheduled January 20 at 9:30 ) Marge Guzman CRNP [Primary Care Provider] - 01/21/25 2:00 pm (Hospital follow up scheduled January 21 at 2:00) Diet: Carb Consistent or DM2 and Heart Healthy Addtl Attending Provider Instructions: Advised to note that you had a heart attack and had stents placed in your heart Advised to note that your heart has gotten weaker from the heart attack and one wall is not pumping well Advised to note that you are being discharged on a new medication list. Please take note of the medication changes Advised on smoking cessation Advised to follow-up with PCP in 1 week Advised to follow-up with engine lathe tender in 1 to 2 weeks Pending Studies at Discharge: No Stand-Alone Forms: My [facility], Smoking Cessation Medications and DC Order Prescriptions: New atorvastatin 40 mg Tablet 80 mg PO QAM 30 Days Qty: 60 0RF carvedilol 3.125 mg Tablet 3.125 mg PO BIDM 30 Days Qty: 60 0RF pantoprazole 40 mg Tablet,Delayed Release (Dr/Ec) 40 mg PO QAM 30 Days Qty: 30 0RF losartan 25 mg Tablet 25 mg PO QAM 30 Days Qty: 30 0RF ticagrelor [Brilinta] 90 mg Tablet 90 mg PO BID 30 Days Qty: 60 0RF Continued (DME) pen needle, diabetic 31 gauge x 5/32" needle See Rx Instructions .Route Qty: 100 0RF Rx Instructions: As directed (DME) OneTouch Verio test strips Strip See Rx Instructions .Route Qty: 50 2RF Rx Instructions: Test 1x daily montelukast 10 mg tablet 10 mg PO DAILY Qty: 90 3RF escitalopram oxalate 10 mg tablet 10 mg PO DAILY Qty: 90 3RF amlodipine 5 mg tablet 5 mg PO DAILY Qty: 90 3RF famotidine 20 mg tablet 20 mg PO BID Qty: 180 3RF Ozempic 0.25 mg or 0.5 mg (2 mg/3 mL) pen injector 0.5 mg subcut WK aspirin 81 mg Tablet,Delayed Release (Dr/Ec) 81 mg PO DAILY multivitamin Tablet 1 tab PO DAILY carboxymethylcellulose sodium 0.5 % Drops 1 drp OPHTHALMIC (EYE) QID fluticasone propionate 50 mcg/actuation [place],Suspension 1 spray INTRANASAL DAILY Rx Instructions: administer into each nostril cyanocobalamin (vitamin B-12) 1 tab PO DAILY Rx Instructions: no strength listed on list from [place] metformin 500 mg tablet extended release 24 hr 500 mg PO UD Rx Instructions: 500 mg po BID. Per [place] list, instructions are unclear listed as "two tabs po everyday every other day, 500 mg every other day" insulin glargine-yfgn 100 unit/mL (3 mL) insulin pen 20 unit subcut UD Rx Instructions: 20 u subcut daily. Per [place] list, script is last released 08/23/24 Please fax to [place] [phone] albuterol sulfate 90 mcg/actuation Hfa Aerosol Inhaler 1 inh INHALATION QID PRN (Reason: sob) Discontinued atorvastatin 40 mg tablet 40 mg PO DAILY Qty: 100 3RF Discharge Orders: Discharge Order (Routine); Ordered 01/14/25 Ordered By: Carlos Guardado/Other Patient Handouts: Managing Type 2 Diabetes, [facility] for Diabetes Admission Data Admit Date/Time: 01/12/25 11:36 Attending Provider: Carlos Puga Admit Provider: Vlad Ruelas Primary Care Provider: Marge Guzman Other Providers: Vlad Ruelas; Cayden Henriquez; [facility] Other Interventions: Discharge Summary Assessment (RN) Last Done: 01/14/25 11:41
--- NOTE | 2025-01-14 10:11 | Cardiology Progress Note ---
Date of Service January 14, 2025 Assessment & Plan (1) CAD (coronary artery disease): Plan: Inferior STEMIpost 2 new RAFITA to mid RCA Minimal residual on culprit disease 2. Ischemic cardiomyopathyEF 40 to 45%, inferior/inferolateral wall motion abnormality 3. Type 2 [id number] 6.9, on GLP-1 4. Hypertension 5. Dyslipidemia 6. Tobacco abuse Stable from a cardiac standpoint. OK for discharge. Will arrange f/up with Dr. Duffy in 1-2 weeks. Home on DAPT with aspirin, Ticagrelor Continue current statin Home on new losartan, carvedilol Can start Jardiance or Farxiga as an outpatient Resume GLP-1 as an outpatient. Continue PPI Admission and Anticipated Discharge Date Admission Date: January 12, 2025 Subjective Feeling well. No chest pain. No issues overnight. Review of Systems Review of Systems: All systems reviewed & are unremarkable except as noted in HPI & below Physical Exam Physical Exam: General: Comfortable HEENT: Sclerae anicteric Lungs: Clear to auscultation bilaterally Cardiac: Regular rate and rhythm, no murmurs. Vascular: Right radial artery access site with no ecchymosis, hematoma. Distal pulse and sensation intact. Abdomen: Soft, nontender Extremities: Well perfused, no peripheral edema Neuro: Nonfocal Psych: Alert orient x3, normal affect and mood Results & Data Vital Signs (Past 12 Hours) Vital Signs Temp Pulse Pulse Resp BP Pulse Ox O2 Del Method 01/14/25 08:00 97.9 F 84 18 121/75 94 Room Air 01/14/25 04:17 80 01/14/25 03:37 97.7 F 94 H 18 124/78 96 Room Air PG Care Time/CCT Total # of Minutes Spent Total Time Spent with Patient: Total time spent is greater than 50% in coordination of care (as documented) at patient's floor/unit and/or counseling patient: Coding Level of Care Code 02595 SUB INP/OBS CARE 2/35MIN Diagnoses CAD (coronary artery disease) I25.10
--- NOTE | 2025-01-15 04:05 | Electrocardiogram Report ---
Test Reason : Blood Pressure : */* mmHG Vent. Rate : 96 BPM Atrial Rate : * BPM P-R Int : 188 ms QRS Dur : 120 ms QT Int : 364 ms P-R-T Axes : * 80 88 degrees QTcB Int : 459 ms Normal sinus rhythm Right bundle branch block Possible Lateral infarct , age undetermined Inferior infarct ACUTE CA / STEMI Consider right ventricular involvement in acute inferior infarct Abnormal ECG When compared with ECG of 13-Sep-2021 18:53, Inferior STEMI is now present Confirmed by Ananth Mares ([id number]) on 01/15/2025 4:05:17 AM Referred By: REFERRED SELF Confirmed By: Ananth Mares
--- NOTE | 2025-01-15 04:06 | Electrocardiogram Report ---
Test Reason : Blood Pressure : */* mmHG Vent. Rate : 92 BPM Atrial Rate : 92 BPM P-R Int : 156 ms QRS Dur : 114 ms QT Int : 364 ms P-R-T Axes : 9 -39 -15 degrees QTcB Int : 450 ms Normal sinus rhythm Left axis deviation Incomplete right bundle branch block Inferolateral infarct Abnormal ECG When compared with ECG of 12-Jan-2025 11:38, ST no longer elevated in Inferior leads Confirmed by Ananth Mares ([id number]) on 01/15/2025 4:06:18 AM Referred By: REFERRED SELF Confirmed By: Ananth Mares
--- NOTE | 2025-01-15 04:07 | Electrocardiogram Report ---
Test Reason : Blood Pressure : */* mmHG Vent. Rate : 86 BPM Atrial Rate : 86 BPM P-R Int : 138 ms QRS Dur : 132 ms QT Int : 396 ms P-R-T Axes : 32 -59 -17 degrees QTcB Int : 473 ms Normal sinus rhythm Right bundle branch block Left anterior fascicular block Bifascicular block Inferolateral infarct Abnormal ECG When compared with ECG of 12-Jan-2025 17:23, No significant change Confirmed by Ananth Mares ([id number]) on 01/15/2025 4:07:14 AM Referred By: REFERRED SELF Confirmed By: Ananth Mares
== END 2025-01-14 11:42 | disposition home or self-care (01) | DRG 322 ==
LOC: ED 11:33 → SUATTDRO 11:36 → 1E 11:36 → 4W 01-13 19:06

== ENCOUNTER 2025-04-27 12:59 | Inpatient (IN) ==
[2025-04-27 13:26] LABS: Hematocrit (blood only) 42.7 % (42.0-52.0); Hemoglobin 14.6 g/dl (14.0-18.0); Immature Granulocytes # (auto) 0.03 K/uL (0.01-0.20); Immature Granulocytes % (auto) 0.5 %; Mean Corpuscular Hemoglobin 30.0 pg (25.0-34.0); Mean Corpuscular Volume 87.7 fL (80.0-100.0); Platelet Count 211 K/uL (130-400); RDW Standard Deviation 41.7 fL (36.4-46.3); Red Blood Count 4.87 M/uL (4.70-6.10); White Blood Count 6.63 K/ul (4.8-10.8)
[2025-04-27] MEDS: ACETAMINOPHEN 1,000 MG/100 ML VIAL IV STA (13:35)
--- NOTE | 2025-04-27 13:47 | XRay Report ---
XR chest 1V portable CLINICAL HISTORY: fever COMPARISON STUDY: 03/14/2025 FINDINGS: Heart size and pulmonary vasculature are normal. No consolidation or pleural effusion. No p neumothorax. IMPRESSION: No acute findings. ACT 112: Negative or not required by law. Electronically signed by: Ector Romo M.D. 04/27/2025 1:46 PM
[2025-04-27 13:48] LABS: Alanine Aminotransferase 15.0 U/L (7-52); Albumin Globulin Ratio 1.3 (0.9-2); Alkaline Phosphatase 81.0 U/L (34-104); Anion Gap 9.0 (3-11); Bilirubin,Total 0.7 mg/dl (0.2-1.0); Blood Urea Nitrogen 19.0 mg/dl (6-23); Calcium 10.0 mg/dl (8.6-10.3); Carbon Dioxide 26.0 mmol/L (21-32); Chloride 102.0 mmol/L (98-107); Creatinine Clr Calc Pharmacy 55.4 ml/min; Globulin 3.2 gm/dl (2.5-4.0); Glucose 125.0 mg/dl (70-99(Fasting)); Lipase 23.0 U/L (11-82); Potassium 4.2 mmol/L (3.5-5.1); Sodium 137.0 mmol/L (136-145); Total Protein 7.5 gm/dl (6.0-8.3)
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
[2025-04-27] MEDS: OPTIRAY 320 100ml IV ONE (14:07)
[2025-04-27 14:18] LABS: Appearance Urine Clear (Clear); Bacteria Urine Automated None Seen (None Seen); Cast Urine Automated 0-2 /lpf (0-2); Epithelial Cell Urine Auto 0-2 /hpf (0-2); Glucose Urine UA 3+ (Negative); RBC Urine Automated >20 /hpf (0-2); WBC Urine Automated 0-5 /hpf (0-5)
--- NOTE | 2025-04-27 14:35 | CT Scan Report ---
CT SCAN OF THE ABDOMEN AND PELVIS WITH IV CONTRAST CLINICAL HISTORY: Vomiting. Fevers. COMPARISON STUDY: Abdominal CT dated 03/14/2025 TECHNIQUE: Following the IV administration of 93 cc of Optiray 320, CT scan of the abdomen and pelvi s is performed from the lung bases to the proximal femora. Images are reviewed in the axial, sagittal , and coronal planes. IV contrast was administered without complication. A dose lowering technique wa s utilized adhering to the principles of ALARA. CT DOSE: 1325.01 mGy.cm FINDINGS: Lung bases: The heart is mildly enlarged and without pericardial effusion. The coronary arteries are densely calcified. There is a small hiatal hernia. Emphysematous change is noted at the lung bases. T here is bibasilar scarring/atelectasis. No airspace consolidation or pleural effusion is identified. Liver: The contrast-enhanced liver is normal in size, contour, and attenuation. There is no intrahepa tic biliary ductal dilatation. The hepatic veins and portal veins are patent. Gallbladder: There are calcified gallstones with no CT evidence of acute cholecystitis. Spleen: Normal in size and attenuation. Pancreas: Unremarkable. Adrenal glands: Unremarkable. Kidneys: The contrast enhanced kidneys are normal in size and without hydronephrosis. The kidneys enh ance symmetrically. Abdominal vasculature: There is moderate to advanced atherosclerotic calcification and mild ectasia o f the abdominal aorta. Bowel: There is moderate colonic diverticulosis without CT evidence of acute diverticulitis. No bowel obstruction is seen. [id number] fecal retention is noted throughout the colon. The appendix is well-visualized and normal. Peritoneum: There is no intraperitoneal free air or abdominal ascites. Lymphadenopathy: None. Pelvic viscera: The bladder, prostate, and seminal vesicles are normal as visualized. There is a smal l fat containing right groin hernia. Skeletal structures: The skeletal structures are osteopenic. Mild lumbosacral spondylosis is observed . No lytic or blastic lesions are seen. There are subacute/healing left-sided rib fractures. IMPRESSION: 1. No acute infectious or inflammatory findings are identified in the abdomen or pelvis. 2. Cardiomegaly and emphysema. 3. There are subacute/healing left-sided rib fractures. 4. Cholelithiasis. 5. Colonic diverticulosis without CT evidence of acute diverticulitis. 6. Additional findings as above. ACT 112: Negative or not required by law. Electronically signed by: Thuan Diego M.D. 04/27/2025 2:34 PM
[2025-04-27 14:46] LABS: Procalcitonin 0.74 ng/ml (0-0.5)
[2025-04-27 15:12] LABS: Lyme Screen Rflx Confirmation Negative (Negative)
[2025-04-27 15:15] LABS: Chlamydia pneumoniae PCR Not Detected (NotDetected); Coronavirus 229E PCR Not Detected (NotDetected); Coronavirus CoV-2 (COVID19)PCR Not Detected (NotDetected); Coronavirus HKU1 PCR Not Detected (NotDetected); Coronavirus NL63 PCR Not Detected (NotDetected); Coronavirus OC43PCR Not Detected (NotDetected); Human Metapneumovirus PCR Not Detected (NotDetected); Parainfluenza Virus 1 PCR Not Detected (NotDetected); Parainfluenza Virus 2 PCR Not Detected (NotDetected); Parainfluenza Virus 3 PCR Not Detected (NotDetected); Parainfluenza Virus 4 PCR Not Detected (NotDetected); Respiratory Syncytial VirusPCR Not Detected (NotDetected); Rhinovirus/Enterovirus PCR Not Detected (NotDetected)
[2025-04-27] MEDS: SODIUM CHLORIDE 0.9% 1,000 ML IV ONE ×2 (15:40→16:14)
[2025-04-27] MEDS: cefTRIAXone SODIUM 2,000 MG/50 ML BAG IV STA (16:14)
[2025-04-27] MEDS: SODIUM CHLORIDE 0.9% 500 ML IV ONE (16:14)
[2025-04-27] MEDS ORDERED: ONDANSETRON INJ 2 MG/ML 2 ML VIAL IV PRN (17:05)
[2025-04-27] MEDS ORDERED: MAGNESIUM HYDROXIDE SUSP 30 ML UDC PO PRN (17:05)
[2025-04-27] MEDS ORDERED: POLYETHYLENE (MIRALAX) 17 GM PACK PO PRN (17:05)
--- NOTE | 2025-04-27 17:11 | History & Physical Report ---
Date of Service April 27, 2025 Assessment & Plan (1) Elevated procalcitonin: (2) SIRS (systemic inflammatory response syndrome): (3) Nausea & vomiting: (4) Fever: Plan 75 male CAD status post stents hypertension hyperlipidemia diabetes Asthma multinodular goiter Smoking Melanoma status post excision and chemotherapy anxiety depression presents with ongoing fevers night sweats waking up at night drenched in sweat intermittent nausea vomiting. No chest pain shortness of breath cough abdominal pain diarrhea dysuria hematuria or other symptoms or any other symptoms. No recent sick contacts or travel. No rashes. SIRS positive with positive fevers tachypnea tachycardia however no clear source. Workup in ED so far unimpressive. CT abdomen pelvis unrevealing. Chest x-ray negative. Lactate normal. UA unimpressive. Pro-Ward elevated at .74. Respiratory PCR negative. Tick panel pending. Fevers of unknown origin Supportive care IV fluids Infectious workup NTD including CT abdomen pelvis, chest x-ray, respiratory PCR, UA Empirical IV Rocephin doxycycline Follow tick panel Blood cultures NTD ID consultation if persists TTE Diabetes Short and long-acting insulin History of CAD status post stents Continue home medications Hypertension Continue home medications DVT prophylaxis Full code Disposition admission anticipate at least 48 hours hospitalization History of Present Illness Chief Complaint: fever Primary Care Provider: AMEE Lainez 75 male CAD status post stents hypertension hyperlipidemia diabetes Asthma multinodular goiter Smoking Melanoma status post excision and chemotherapy anxiety depression presents with ongoing fevers night sweats waking up at night drenched in sweat intermittent nausea vomiting. No chest pain shortness of breath cough abdominal pain diarrhea dysuria hematuria or other symptoms or any other symptoms. No recent sick contacts or travel. No rashes. SIRS positive with positive fevers tachypnea tachycardia however no clear source. Workup in ED so far unimpressive. CT abdomen pelvis unrevealing. Chest x-ray negative. Lactate normal. UA unimpressive. Pro-Ward elevated at .74. Respiratory PCR negative. Tick panel pending. Awaiting completion of home med rec to resume home medications Allergies Allergy/AdvReac Type Severity Reaction Status Date / Time amoxicillin Allergy Mild RASH Verified 03/23/25 13:30 metoprolol Allergy Mild S.O.B. Verified 03/23/25 13:30 doxycycline Allergy Anaphylaxis Verified 04/27/25 19:25 ticagrelor AdvReac Intermediate sob Verified 03/23/25 13:30 fluticasone AdvReac unknown Verified 03/23/25 13:30 [From Advair Diskus] salmeterol AdvReac unknown Verified 03/23/25 13:30 [From Advair Diskus] Home Medications Medication Instructions Recorded Confirmed Type aspirin 81 mg tablet,delayed 81 mg PO DAILY 12/21/18 04/27/25 History release multivitamin 1 tab PO DAILY 09/13/21 04/27/25 History pen needle, diabetic 31 gauge x #100 ea 10/11/21 04/27/25 Rx 5/32" semaglutide 0.25 mg or 0.5 mg (2 0.5 mg subcut WK 02/17/23 04/27/25 History mg/3 mL) subcutaneous pen injector (Kiggit) blood sugar diagnostic (OneTouch #50 ea 10/13/23 04/27/25 Rx Verio test strips) montelukast 10 mg tablet 10 mg PO DAILY #90 tabs 05/03/24 04/27/25 Rx escitalopram oxalate 10 mg tablet 10 mg PO DAILY #90 tabs 09/20/24 04/27/25 Rx amlodipine 5 mg tablet 5 mg PO DAILY #90 tabs 10/14/24 04/27/25 Rx famotidine 20 mg tablet 20 mg PO BID #180 tabs 01/06/25 04/27/25 Rx albuterol sulfate 90 mcg/actuation 1 inh inhalation QID PRN sob 01/12/25 04/27/25 History aerosol inhaler insulin glargine-yfgn 100 unit/mL 20 unit subcut QAM 01/12/25 04/27/25 History (3 mL) subcutaneous pen losartan 25 mg tablet 25 mg PO QAM 1 month #90 tabs 02/03/25 04/27/25 Rx atorvastatin 80 mg tablet 80 mg PO QAM 1 month #90 tabs 02/10/25 04/27/25 Rx pantoprazole 40 mg tablet,delayed 40 mg PO QAM 1 month #90 tabs 02/10/25 04/27/25 Rx release carvedilol 3.125 mg tablet 3.125 mg PO BIDM 1 month #180 tabs 02/12/25 04/27/25 Rx prasugrel HCl 10 mg tablet 10 mg PO DAILY #100 tabs 03/07/25 04/27/25 Rx furosemide 20 mg tablet 20 mg PO DAILY #90 tabs 04/12/25 04/27/25 Rx cyanocobalamin (vitamin B-12) 1,000 mcg PO DAILY 04/27/25 04/27/25 History 1,000 mcg tablet (Vitamin B-12) empagliflozin 10 mg-metformin ER 1 tab PO QAM 04/27/25 04/27/25 History 1,000 mg tablet,extended release 24hr (Synjardy XR) Past Med/Surg History Problem List (Updated 04/27/25 @ 16:10 by Tatianna Linares MD) Elevated procalcitonin (Acute) SIRS (systemic inflammatory response syndrome) (Acute) Nausea & vomiting (Acute) Fever (Acute) Elevated brain natriuretic peptide (BNP) level Encounter for monitoring diuretic therapy ST elevation (STEMI) myocardial infarction (Acute) Hyponatremia Tobacco abuse counseling STEMI (ST elevation myocardial infarction) RODRIGUEZ (dyspnea on exertion) History of malignant neuroendocrine tumor Ventral hernia Encounter for pre-operative examination Presence of drug-eluting stent in right coronary artery Antiplatelet or antithrombotic long-term use Encounter for health maintenance examination in adult Controlled type 2 diabetes mellitus with circulatory disorder Hyperlipidemia Asthma Hypertension Type II diabetes mellitus, well controlled Seasonal allergies (Acute) Rotator cuff impingement syndrome of right shoulder (Acute) Multinodular thyroid (Acute) Encounter for pre-operative examination (Acute) CAD (coronary artery disease) Diabetes mellitus, type 2 diagnosed 11/2015 Depression Medical History Hypercalcemia Hyperglycemia Incarcerated incisional hernia GERD (gastroesophageal reflux disease) Cancer MELANOMA (WITH EXCISION & CHEMOTHERAPY) Anxiety Hypertension Hyperlipidemia Asthma Surgical History History of bowel resection History of repair of rotator cuff History of colonoscopy History of melanoma excision History of cardiac cath History of heart artery stent Family History Sister Diabetes Father Alzheimer disease Mother Pancreatic cancer Denies family history of Colon cancer Ovarian cancer Prostate cancer Myocardial infarction Breast cancer Social History Smoking Status: Current every day smoker Tobacco Type: Cigarettes Age Started Using Tobacco: 17; packs per day: 1; Cigarettes Per Day: 6-7 little cigars; Second Hand Exposure: No; Do You Dip or Chew Tobacco: No; Hx Alcohol Use: No Hx Substance Use: No Preferred Language: Khmer Communication Ability: Effective Visual Impairment: No Limitations Hearing Ability: Normal Paralegal Assistant Required: No Beliefs That Will Affect Care: Spiritual marital status: / Current Living Situation: Alone Current Living Situation Comment: Home in [facility] current occupational status: retired current occupation: retired from [employer] Feel Safe at Home: Yes Childhood Exposure to Second-Hand Smoke: No Diet: regular Dental Care, Regularly: No Physical Activity Frequency: Does not Exercise Physical Activity Frequency Comment: active-hunts and fishes-outdoors Seatbelt Use: always Sunscreen Use: No Assistive Devices: Cane and Walker Review of Systems Review of Systems: All systems reviewed & are unremarkable except as noted in HPI & below Physical Exam Physical Exam: Awake alert no acute distress Supple Air entry bilaterally no crackles rales rhonchi or wheeze S1-S2 positive no murmurs rubs gallops Soft nontender Palpable pulses no rashes Constitutional: WD/WN, vitals as above no acute distress Neck: trachea midline, no thyromegaly Respiratory: normal respiratory effort, lungs clear to auscultation Cardiovascular: RRR, no murmur, no edema Gastrointestinal (Abdomen): Inspection/Auscultation: normal bowel sounds Musculoskeletal: no cyanosis or clubbing, extremities motor strength 5/5 Head/Neck/Chest: normocephalic and neck supple Skin: no rashes, warm and dry + ecchymosis (extremities and left side) Trauma: + evidence of skin trauma, + contusion (left upper extremity, left lower extremity, left side, right leg) and + hematoma (large left medial thigh, right arm) Neurologic: moves all extremities; no focal motor deficits and not confused Psychiatric: A+Ox3, euthymic affect Results & Data Results & Data Vital Signs (Past 12 Hours) Vital Signs Temp Pulse Pulse Resp BP BP Pulse Ox 04/27/25 15:00 84 18 93/58 L 04/27/25 14:19 37.2 C 04/27/25 13:59 96 H 04/27/25 13:54 96 H 22 93 04/27/25 13:46 125/76 04/27/25 13:15 98 H 18 93 04/27/25 13:15 100 H 20 123/77 93 04/27/25 13:12 38.0 C H 97 H 20 123/77 93 O2 Del Method 04/27/25 15:00 04/27/25 14:19 04/27/25 13:59 04/27/25 13:54 04/27/25 13:46 04/27/25 13:15 Room Air 04/27/25 13:15 Room Air 04/27/25 13:12 Room Air Laboratory Results Abnormal Labs 04/27/25 04/27/25 13:14 13:50 Lymph # (Auto) 0.66 L Glucose 125 H Procalcitonin 0.74 H Ur Specific [place] 1.033 H Urine Protein 1+ H Urine Glucose (UA) 3+ H Urine Ketones 2+ H Urine Blood 3+ H Urine RBC (Auto) >20 H Diagnostic Findings Chest X-Ray 04/27/25 13:22 XR chest 1V portable CLINICAL HISTORY: fever COMPARISON STUDY: 03/14/2025 FINDINGS: Heart size and pulmonary vasculature are normal. No consolidation or pleural effusion. No pneumothorax. IMPRESSION: No acute findings. ACT 112: Negative or not required by law. Electronically signed by: Ector Romo M.D. 04/27/2025 1:46 PM Abdomen/Pelvis CT 04/27/25 13:23 CT SCAN OF THE ABDOMEN AND PELVIS WITH IV CONTRAST CLINICAL HISTORY: Vomiting. Fevers. COMPARISON STUDY: Abdominal CT dated 03/14/2025 TECHNIQUE: Following the IV administration of 93 cc of Optiray 320, CT scan of the abdomen and pelvis is performed from the lung bases to the proximal femora. Images are reviewed in the axial, sagittal, and coronal planes. IV contrast was administered without complication. A dose lowering technique was utilized adhering to the principles of ALARA. CT DOSE: 1325.01 mGy.cm FINDINGS: Lung bases: The heart is mildly enlarged and without pericardial effusion. The coronary arteries are densely calcified. There is a small hiatal hernia. Emphys ematous change is noted at the lung bases. There is bibasilar scarring/atelectasis. No airspace consolidation or pleural effusion is identified. Liver: The contrast-enhanced liver is normal in size, contour, and attenuation. There is no intrahepatic biliary ductal dilatation. The hepatic veins and portal veins are patent. Gallbladder: There are calcified gallstones with no CT evidence of acute cholecystitis. Spleen: Normal in size and attenuation. Pancreas: Unremarkable. Adrenal glands: Unremarkable. Kidneys: The contrast enhanced kidneys are normal in size and without hydronephrosis. The kidneys enhance symmetrically. Abdominal vasculature: There is moderate to advanced atherosclerotic calcification and mild ectasia of the abdominal aorta. Bowel: There is moderate colonic diverticulosis without CT evidence of acute diverticulitis. No bowel obstruction is seen. [id number] fecal retention is noted throughout the colon. The appendix is well-visualized and normal. Peritoneum: There is no intraperitoneal free air or abdominal ascites. Lymphadenopathy: None. Pelvic viscera: The bladder, prostate, and seminal vesicles are normal as visualized. There is a small fat containing right groin hernia. Skeletal structures: The skeletal structures are osteopenic. Mild lumbosacral spondylosis is observed. No lytic or blastic lesions are seen. There are subacute/healing left-sided rib fractures. IMPRESSION: 1. No acute infectious or inflammatory findings are identified in the abdomen or pelvis. 2. Cardiomegaly and emphysema. 3. There are subacute/healing left-sided rib fractures. 4. Cholelithiasis. 5. Colonic diverticulosis without CT evidence of acute diverticulitis. 6. Additional findings as above. ACT 112: Negative or not required by law. Electronically signed by: Thuan Diego M.D. 04/27/2025 2:34 PM PG Care Time/CCT Total # of Minutes Spent Total Time Spent with Patient: Total time spent is greater than 50% in coordination of care (as documented) at patient's floor/unit and/or counseling patient: Coding Level of Care Code 27392 INT INP/OBS CARE 2/55MIN Diagnoses Elevated procalcitonin R79.89 SIRS (systemic inflammatory response syndrome) R65.10 Nausea & vomiting R11.2 Fever R50.9
[2025-04-27] MEDS ORDERED: cefTRIAXone SODIUM 1,000 MG/50 ML BAG IV SCH (17:15)
[2025-04-27] MEDS: DOXYCYCLINE HYCLATE 100 MG in DEXTROSE 5% MINI-B 100 ML IV SCH (18:20)
[2025-04-27] MEDS: ALBUT/IPRATROP 3MG/0.5MG NEB 3 ML VIAL ONE ×2 (18:47→19:32)
[2025-04-27] MEDS: MAGNESIUM SULFATE / D5W 1 GM/100 ML BAG IV ONE (18:55)
[2025-04-27] MEDS: diphenhydrAMINE 50 MG/ML VIAL ONE (18:55)
[2025-04-27] MEDS: EPINEPHrine INJ 1 MG/ML AMP IM STA ×2 (18:55→19:00)
[2025-04-27] MEDS: FAMOTIDINE 20MG/5ML IV PUSH IV ONE (18:55)
[2025-04-27] MEDS ORDERED: STAT IV/IM STA (19:19)
[2025-04-27] MEDS: EPINEPHrine/NSS 4 MG/254 ML BAG IV SCH (19:29)
[2025-04-27] MEDS: RACEPINEPHRINE 2.25% NEBU SOLN 0.5 ML VIAL ONE (19:32)
[2025-04-27] MEDS ORDERED: ALBUTEROL HFA 8 GM INHALER INH PRN (19:49)
--- NOTE | 2025-04-27 19:53 | Critical Care Consultation ---
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 Aspirin (Aspirin 81 Mg Ectab) 81 mg PO DAILY DANIA Stop: 05/28/25 08:59 Atorvastatin Calcium (Atorvastatin 40 Mg Tab) 80 mg PO QAM DANIA Stop: 05/28/25 08:59 Cyanocobalamin (Cyanocobalamin (B-12) 500 Mcg Tablet) 1,000 mcg PO DAILY DANIA Stop: 05/28/25 08:59 Diphenhydramine HCl (Diphenhydramine 50 Mg/Ml Vial) 50 mg IV Q6 DANIA Stop: 05/28/25 00:00 Heparin Sodium (Porcine) (Heparin Sod 5,000 Unit/0.5 Ml Vial) 5,000 units SQ Q12 DANIA Stop: 05/27/25 20:59 Lactated Ringer's (Lr) 1,000 mls @ 80 mls/hr IV .[id number] DANIA Stop: 04/30/25 17:14 Ceftriaxone Sodium (Rocephin) 2,000 mg in 50 mls @ 100 mls/hr IV Q24H DANIA Stop: 05/03/25 18:00 Epinephrine HCl () 4 mg in 254 mls @ 34.023 mls/hr IV .Q7H28M DANIA; Protocol Stop: 05/27/25 19:29 Last Infusion: 04/27/25 20:05 Dose: 0 mcg/kg/min, 0 mls/hr Azithromycin (Zithromax) 500 mg in 255 mls @ 127.5 mls/hr IV NOW ONE Stop: 04/27/25 21:48 Magnesium Sulfate/Dextrose (Magnesium Sulfate / D5w) 1 gm in 100 mls @ 50 mls/hr IV ONE ONE Stop: 04/27/25 21:48 Last Admin: 04/27/25 18:55 Dose: 50 mls/hr Famotidine (Pepcid 20mg Iv Push) 20 mg in 5 mls @ 2.5 mls/min IV Q12H DANIA Stop: 05/28/25 06:59 Magnesium Hydroxide (Magnesium Hydroxide Susp 30 Ml Udc) 30 ml PO Q6H PRN PRN Reason: Constipation Stop: 05/27/25 17:04 Montelukast Sodium (Montelukast Sodium 10 Mg Tablet) 10 mg PO DAILY DANIA Stop: 05/28/25 08:59 Multivitamins (Multivitamin Tab) 1 tab PO DAILY DANIA Stop: 05/28/25 08:59 Ondansetron HCl (Ondansetron Inj 2 Mg/Ml 2 Ml Vial) 4 mg IV Q6H PRN PRN Reason: Nausea Stop: 05/27/25 17:04 Pantoprazole Sodium (Pantoprazole 40 Mg Tab) 40 mg PO QAM DANIA Stop: 05/28/25 08:59 Polyethylene Glycol (Polyethylene (Miralax) 17 Gm Pack) 17 gm PO DAILY PRN PRN Reason: Constipation Stop: 05/27/25 17:04 Prasugrel (Prasugrel Tab 10 Mg Tab) 10 mg PO DAILY DANIA Stop: 05/28/25 08:59 Coding Level of Care Code 48979 IN/OBS CONSULT LVL 2,35M Diagnoses Anaphylactoid reaction T78.2XXA SIRS (systemic inflammatory response syndrome) R65.10 Acute vomiting R11.10 CAD (coronary artery disease) I25.10 Diabetes mellitus, type 2 E11.9 Diabetic ketoacidosis without coma associated with diabetes mellitus due to underlying condition E08.10 Diabetes mellitus type: due to underlying condition Diabetes mellitus complication detail: without coma Mild intermittent asthma with acute exacerbation J45.21 Asthma severity: mild Asthma persistence: intermittent Asthma complication type: with acute exacerbation (6) DKA (diabetic ketoacidosis) Diabetes mellitus type: due to underlying condition Diabetes mellitus complication detail: without coma Qualified Code(s): E08.10 - Diabetes mellitus due to underlying condition with ketoacidosis without coma (7) Asthma Asthma severity: mild Asthma persistence: intermittent Asthma complication type: with acute exacerbation Qualified Code(s): J45.21 - Mild intermittent asthma with (acute) exacerbation
[2025-04-27] MEDS: FAMOTIDINE 20 MG TAB ONE (19:58)
[2025-04-27] MEDS: MAGNESIUM SULFATE 1GM / D5W BAG IV ONE (19:58)
[2025-04-27] MEDS: EPINEPHrine INJ 1 MG/ML AMP ONE ×2 (19:58)
[2025-04-27] MEDS: ALBUTEROL 0.083% NEBU SOLN 3 ML VIAL NEB SCH (20:08)
[2025-04-27 20:18] LABS: Hematocrit (blood only) 44.6 % (42.0-52.0); Hemoglobin 14.3 g/dl (14.0-18.0); Mean Corpuscular Hemoglobin 28.8 pg (25.0-34.0); Mean Corpuscular Volume 89.7 fL (80.0-100.0); Platelet Count 259 K/uL (130-400); RDW Standard Deviation 43.6 fL (36.4-46.3); Red Blood Count 4.97 M/uL (4.70-6.10); White Blood Count 9.22 K/ul (4.8-10.8)
[2025-04-27 20:21] LABS: Base Excess VBG -8.6 mEq/L; HCO3 VBG 17 mmol/L; Oxygen Saturation VBG 78.5 %; PCO2 VBG 37 mmHg (38-50); PO2 VBG 48 mmHg; pH VBG 7.28 (7.36-7.41)
[2025-04-27 20:24] LABS: Alanine Aminotransferase 16.0 U/L (7-52); Albumin Globulin Ratio 1.0 (0.9-2); Alkaline Phosphatase 83.0 U/L (34-104); Anion Gap 13.0 (3-11); Bilirubin,Total 0.5 mg/dl (0.2-1.0); Blood Urea Nitrogen 18.0 mg/dl (6-23); Calcium 8.6 mg/dl (8.6-10.3); Carbon Dioxide 19.0 mmol/L (21-32); Chloride 104.0 mmol/L (98-107); Creatinine Clr Calc Pharmacy 65.4 ml/min; Globulin 3.7 gm/dl (2.5-4.0); Glucose 188.0 mg/dl (70-99(Fasting)); Potassium 3.2 mmol/L (3.5-5.1); Sodium 136.0 mmol/L (136-145); Total Protein 7.3 gm/dl (6.0-8.3)
[2025-04-27] MEDS ORDERED: FAMOTIDINE 20 MG TAB PO SCH (21:00)
[2025-04-27] MEDS: LACTATED RINGER'S 1,000 ML IV SCH (21:10)
[2025-04-27] MEDS: AZITHROMYCIN 500 MG/255 ML BAG IV ONE (21:11)
[2025-04-27] MEDS: DAPTOmycin 400 MG in SYRINGE 0 ML IV SCH (21:14)
[2025-04-27] MEDS: ACETAMINOPHEN 325 MG TAB PO PRN (21:14)
[2025-04-27] MEDS: HEPARIN SOD 5,000 UNIT/0.5 ML VIAL SQ SCH (21:17)
[2025-04-27 21:26] LABS: Amphetamines+Metham, Urine Neg (Neg); MDMA (Ecstacy), Urine Neg (Neg); Marijuana, Urine Neg (Neg)
[2025-04-27] MEDS ORDERED: ALBUTEROL 0.083% NEBU SOLN 3 ML VIAL NEB PRN (21:53)
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
[2025-04-27] MEDS: POTASSIUM CHLORIDE 20 MEQ/15 ML UDC PO STA (22:35)
[2025-04-27] MEDS: diphenhydrAMINE 50 MG/ML VIAL IV SCH (23:20)
[2025-04-28] MEDS: ALBUTEROL 0.083% NEBU SOLN 3 ML VIAL NEB SCH (01:06)
[2025-04-28 05:00] LABS: Hematocrit (blood only) 38.5 % (42.0-52.0); Hemoglobin 12.4 g/dl (14.0-18.0); Mean Corpuscular Hemoglobin 28.4 pg (25.0-34.0); Mean Corpuscular Volume 88.3 fL (80.0-100.0); Platelet Count 184 K/uL (130-400); RDW Standard Deviation 42.8 fL (36.4-46.3); Red Blood Count 4.36 M/uL (4.70-6.10); White Blood Count 6.83 K/ul (4.8-10.8)
[2025-04-28 05:50] LABS: Alanine Aminotransferase 17.0 U/L (7-52); Albumin Globulin Ratio 1.2 (0.9-2); Alkaline Phosphatase 58.0 U/L (34-104); Anion Gap 6.0 (3-11); Bilirubin,Total 0.5 mg/dl (0.2-1.0); Blood Urea Nitrogen 16.0 mg/dl (6-23); Calcium 8.9 mg/dl (8.6-10.3); Carbon Dioxide 21.0 mmol/L (21-32); Chloride 109.0 mmol/L (98-107); Creatinine Clr Calc Pharmacy 64.9 ml/min; Globulin 2.8 gm/dl (2.5-4.0); Glucose 161.0 mg/dl (70-99(Fasting)); Magnesium 2.3 mg/dl (1.7-2.4); Potassium 4.5 mmol/L (3.5-5.1); Sodium 136.0 mmol/L (136-145); Total Protein 6.1 gm/dl (6.0-8.3)
[2025-04-28] MEDS: MULTIVITAMIN TAB PO SCH (08:03)
[2025-04-28] MEDS: ATORVASTATIN 40 MG TAB PO SCH (08:03)
[2025-04-28] MEDS: PRASugrel TAB 10 MG TAB PO SCH (08:03)
[2025-04-28] MEDS: FAMOTIDINE 20MG IV PUSH 20 MG/5 ML SYR IV SCH (08:03)
[2025-04-28] MEDS: MONTELUKAST SODIUM 10 MG TABLET PO SCH (08:04)
[2025-04-28] MEDS: ASPIRIN 81 MG ECTAB PO SCH (08:04)
[2025-04-28] MEDS: predniSONE 20 MG TAB PO SCH (08:04)
[2025-04-28] MEDS: CYANOCOBALAMIN (B-12) 500 MCG TABLET PO SCH (08:04)
[2025-04-28] MEDS ORDERED: DEXTROSE 50% 50 ML SYRINGE IV PRN (08:31)
[2025-04-28] MEDS ORDERED: GLUCAGON FOR INJ 1 MG VIAL SQ PRN (08:31)
[2025-04-28] MEDS ORDERED: GLUCOSE 10 TAB/TUBE PO PRN (08:31)
[2025-04-28] MEDS ORDERED: CARBOHYDRATES FOR HYPOGLYCEMIA PO PRN (08:31)
[2025-04-28] MEDS ORDERED: GLUCOSE 40% GEL 15 GM TUBE PO PRN (08:31)
[2025-04-28] MEDS: INSULIN ASPART PER UNIT CHARGE SC SCH (08:45)
[2025-04-28] MEDS: NovoLIN-R INSULIN PER UNIT CHARGE ONE (08:46)
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
[2025-04-28] MEDS ORDERED: INSULIN GLARGINE SOLOSTAR 100 UNITS/ML 3 ML PEN SQ SCH (11:30)
[2025-04-28] MEDS: LANTUS PER UNIT CHARGE SQ SCH (11:51)
[2025-04-28] MEDS: diphenhydrAMINE 50 MG/ML VIAL IV SCH (11:52)
[2025-04-28] MEDS: FUROSEMIDE 20 MG TAB PO SCH (11:53)
[2025-04-28] MEDS ORDERED: ESCITALOPRAM OXALATE 10 MG TAB PO SCH (13:00)
[2025-04-28] MEDS ORDERED: ALBUTEROL 0.083% NEBU SOLN 3 ML VIAL NEB PRN (13:56)
[2025-04-28] MEDS: cefTRIAXone SODIUM 2,000 MG/50 ML BAG IV SCH (16:41)
--- NOTE | 2025-04-28 19:29 | XCELERA ---
[id number] \\[id number]
[2025-04-28] MEDS: FAMOTIDINE 20 MG TAB PO SCH (19:56)
[2025-04-29 07:07] LABS: Hematocrit (blood only) 36.5 % (42.0-52.0); Hemoglobin 12.3 g/dl (14.0-18.0); Mean Corpuscular Hemoglobin 29.6 pg (25.0-34.0); Mean Corpuscular Volume 87.7 fL (80.0-100.0); Platelet Count 190 K/uL (130-400); RDW Standard Deviation 42.3 fL (36.4-46.3); Red Blood Count 4.16 M/uL (4.70-6.10); White Blood Count 9.26 K/ul (4.8-10.8)
[2025-04-29 07:25] LABS: Alanine Aminotransferase 20.0 U/L (7-52); Albumin Globulin Ratio 1.2 (0.9-2); Alkaline Phosphatase 54.0 U/L (34-104); Anion Gap 4.0 (3-11); Bilirubin,Total 0.3 mg/dl (0.2-1.0); Blood Urea Nitrogen 25.0 mg/dl (6-23); Calcium 9.3 mg/dl (8.6-10.3); Carbon Dioxide 27.0 mmol/L (21-32); Chloride 104.0 mmol/L (98-107); Creatinine Clr Calc Pharmacy 60.4 ml/min; Globulin 3.0 gm/dl (2.5-4.0); Glucose 170.0 mg/dl (70-99(Fasting)); Magnesium 2.2 mg/dl (1.7-2.4); Potassium 4.9 mmol/L (3.5-5.1); Sodium 135.0 mmol/L (136-145); Total Protein 6.5 gm/dl (6.0-8.3)
[2025-04-29] MEDS: ESCITALOPRAM OXALATE 10 MG TAB PO SCH (08:56)
--- NOTE | 2025-04-29 09:41 | XRay Report ---
XR chest 1V not portable CLINICAL HISTORY: Shortness of breath COMPARISON STUDY: 04/27/2025 FINDINGS: Stable mild cardiomegaly with increased pulmonary vascular congestion. There are increased pulmonary interstitial opacities. No lobar consolidation or pleural effusion. No pneumothorax. IMPRESSION: CHF. ACT 112: Negative or not required by law. Electronically signed by: Ector Romo M.D. 04/29/2025 9:39 AM
[2025-04-29] MEDS: LOSARTAN POTASSIUM 25 MG TAB PO SCH (09:56)
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
[2025-04-29] MEDS: FUROSEMIDE 40 MG/4 ML VIAL IV ONE (10:59)
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
[2025-04-29] MEDS: RACEPINEPHRINE 2.25% NEBU SOLN 0.5 ML VIAL ONE (12:00)
[2025-04-29] MEDS: ALBUTEROL 0.083% NEBU SOLN 3 ML VIAL ONE (12:00)
--- NOTE | 2025-04-29 17:22 | Cardiology Consultation ---
Date of Consultation April 29, 2025 Assessment & Plan (1) Hypoxic respiratory failure: (2) CHF exacerbation: (3) Elevated troponin: Plan 1. Respiratory failure: I do not believe his acute respiratory failure is cardiac in nature, his chest x-ray does suggest pulmonary edema and it may be due to volume given during initial part of his hospitalization although the sudden onset of this suggests there may be another cause. He does not have much in the way of troponin elevation so far and I do not see an electrocardiogram. I will get another troponin measurement in the morning and an electrocardiogram. 2. CHF: He does seem to at least have some element of congestive heart failure and I agree with diuresis. 3. Elevated troponin: On presentation his troponin was minimally elevated but on prior admissions it was significantly elevated. I am going to repeat a tropo mere in the morning. History of Present Illness Reason for Consultation: CHF Attending Physician: Amber Ace MD History of Present Illness This is a 75-year-old male who follows with Dr. Duffy in our office. He has a history of coronary artery disease including stent placement in the right coronary artery, hypertension, dyslipidemia and more recently shortness of breath. He did have an acute right coronary artery occlusion and presented to the hospital on January 12, 2025 where he had PCI of the mid right coronary artery. Otherwise he only had mild to moderate coronary artery disease. After catheterization his echo showed a left ventricular ejection fraction of 40 to 45% with wall motion abnormalities. He presented to the emergency room on April 27, 2025 with fever, nausea and vomiting and was admitted. An echocardiogram done April 28, 2025 shows a mildly dilated left ventricle with left ventricular hypertrophy and ejection fraction 45 to 50%. Wall motion abnormalities are present. We are consulted to assist in his care, the reason for consultation is listed as CHF with family requesting the consult. Review of his chart indicates relatively normal laboratory values recently with the exception of a somewhat elevated glucose and his troponin being minimally elevated to only 28 on presentation. His electrocardiogram on admission shows sinus tachycardia at 103 bpm with a right bundle branch block pattern and no acute changes, there are nonspecific inferior ST-T abnormalities and an old inferior myocardial infarction. His chest x-ray today shows cardiomegaly with some pulmonary vascular congestion although it is a portable film. He has not had weights in several days. Intake and output may not be reliable but indicates a negative balance over the last 24 hours. Allergies Allergy/AdvReac Type Severity Reaction Status Date / Time amoxicillin Allergy Mild RASH Verified 03/23/25 13:30 metoprolol Allergy Mild S.O.B. Verified 03/23/25 13:30 doxycycline Allergy Anaphylaxis Verified 04/28/25 07:49 ticagrelor AdvReac Intermediate sob Verified 03/23/25 13:30 fluticasone AdvReac unknown Verified 03/23/25 13:30 [From Advair Diskus] salmeterol AdvReac unknown Verified 03/23/25 13:30 [From Advair Diskus] Home Medications Medication Instructions Recorded Confirmed Type aspirin 81 mg tablet,delayed 81 mg PO DAILY 12/21/18 04/27/25 History release multivitamin 1 tab PO DAILY 09/13/21 04/27/25 History pen needle, diabetic 31 gauge x #100 ea 10/11/21 04/27/25 Rx 5/32" semaglutide 0.25 mg or 0.5 mg (2 0.5 mg subcut WK 02/17/23 04/27/25 History mg/3 mL) subcutaneous pen injector ([facility]) blood sugar diagnostic (OneTouch #50 ea 10/13/23 04/27/25 Rx Verio test strips) montelukast 10 mg tablet 10 mg PO DAILY #90 tabs 05/03/24 04/27/25 Rx escitalopram oxalate 10 mg tablet 10 mg PO DAILY #90 tabs 09/20/24 04/27/25 Rx amlodipine 5 mg tablet 5 mg PO DAILY #90 tabs 10/14/24 04/27/25 Rx famotidine 20 mg tablet 20 mg PO BID #180 tabs 01/06/25 04/27/25 Rx albuterol sulfate 90 mcg/actuation 1 inh inhalation QID PRN sob 01/12/25 04/27/25 History aerosol inhaler insulin glargine-yfgn 100 unit/mL 20 unit subcut QAM 01/12/25 04/27/25 History (3 mL) subcutaneous pen losartan 25 mg tablet 25 mg PO QAM 1 month #90 tabs 02/03/25 04/27/25 Rx atorvastatin 80 mg tablet 80 mg PO QAM 1 month #90 tabs 02/10/25 04/27/25 Rx pantoprazole 40 mg tablet,delayed 40 mg PO QAM 1 month #90 tabs 02/10/25 04/27/25 Rx release carvedilol 3.125 mg tablet 3.125 mg PO BIDM 1 month #180 tabs 02/12/25 04/27/25 Rx prasugrel HCl 10 mg tablet 10 mg PO DAILY #100 tabs 03/07/25 04/27/25 Rx furosemide 20 mg tablet 20 mg PO DAILY #90 tabs 04/12/25 04/27/25 Rx cyanocobalamin (vitamin B-12) 1,000 mcg PO DAILY 04/27/25 04/27/25 History 1,000 mcg tablet (Vitamin B-12) empagliflozin 10 mg-metformin ER 1 tab PO QAM 04/27/25 04/27/25 History 1,000 mg tablet,extended release 24hr (Synjardy XR) albuterol sulfate 90 mcg/actuation 1 puff inhalation QID PRN 04/28/25 Rx aerosol inhaler (Ventolin HFA) shortness of breath or wheezing 30 days #8.5 grams budesonide-formoterol HFA 160 1 inh inhalation BID #10.2 grams 04/28/25 Rx mcg-4.5 mcg/actuation aerosol inhaler prednisone 20 mg tablet 20 mg PO Q12 4 days #8 tabs 04/28/25 Rx Patient History Medical History Hypercalcemia Hyperglycemia Incarcerated incisional hernia GERD (gastroesophageal reflux disease) Cancer MELANOMA (WITH EXCISION & CHEMOTHERAPY) Anxiety Hypertension Hyperlipidemia Asthma Surgical History History of bowel resection History of repair of rotator cuff right History of colonoscopy History of melanoma excision [facility] History of cardiac cath X1. (2014) [facility]. History of heart artery stent X1 STENTS. (2014). TAKES PLAVIX. Family History Sister Diabetes Father Alzheimer disease Mother Pancreatic cancer Denies family history of Colon cancer Ovarian cancer Prostate cancer Myocardial infarction Breast cancer Social History Smoking Status: Current every day smoker Tobacco Type: Cigars Age Started Using Tobacco: 17; packs per day: 1; Cigarettes Per Day: 6-7 little cigars; Second Hand Exposure: No; Do You Dip or Chew Tobacco: No; Hx Alcohol Use: No Hx Substance Use: No Preferred Language: [place] Communication Ability: Effective Visual Impairment: No Limitations Hearing Ability: Normal Environmental Compliance Technician Required: No Beliefs That Will Affect Care: None marital status: / Current Living Situation: Alone Current Living Situation Comment: Home in [facility] current occupational status: retired current occupation: retired from [employer] Other Information That Helps Us Care for You: No Feels Safe at Home: Yes Safety Concerns: Feels Safe At This Time Childhood Exposure to Second-Hand Smoke: No Diet: regular Dental Care, Regularly: No Physical Activity Frequency: Does not Exercise Physical Activity Frequency Comment: active-hunts and fishes-outdoors Seatbelt Use: always Sunscreen Use: No Assistive Devices: Cane and Walker Physical Exam Physical Exam: Constitutional: Alert, cooperative and in mild distress. HEENT: He has an oxygen mask in place. Neck: No jugular venous distention, carotid pulses are normal and equal bilaterally without bruits. Pulmonary: Mostly clear to auscultation bilaterally. Cardiac: Regular rhythm with no murmur, gallop or rub. Abdomen: Soft, nontender with normal bowel sounds. Extremities: No edema. Neurologic: No focal findings Skin: No rash, ecchymoses or petechiae. Results & Data Vital Signs (Past 12 Hours) Vital Signs Temp Pulse Pulse Pulse Resp BP BP 04/29/25 16:18 89 29 H 116/64 04/29/25 15:35 37.6 C 04/29/25 15:00 92 H 22 105/62 04/29/25 14:00 97 H 25 H 116/56 L 04/29/25 13:03 107 H 25 H 122/55 L 04/29/25 12:00 108 H 36 H 127/74 04/29/25 11:30 120 H 16 04/29/25 11:05 04/29/25 10:34 36.6 C 123 H 148/76 H 04/29/25 10:03 160 H 04/29/25 10:00 36.6 C 119 H 171/88 H 04/29/25 08:15 04/29/25 07:56 36.1 C L 104 H 24 159/89 H 04/29/25 07:30 76 Pulse Ox O2 Del Method O2 Flow Rate FiO2 04/29/25 16:18 90 Room Air 04/29/25 15:35 04/29/25 15:00 90 Room Air 04/29/25 14:00 92 04/29/25 13:03 94 04/29/25 12:00 92 04/29/25 11:30 97 30 04/29/25 11:05 CPAP 04/29/25 10:34 97 Nasal Cannula 3 04/29/25 10:03 04/29/25 10:00 90 Room Air 04/29/25 08:15 Room Air 04/29/25 07:56 93 Room Air 04/29/25 07:30 Laboratory Results Cardiac Enzymes 04/29/25 04/29/25 Range/Units 06:32 09:25 AST 26 (13-39) U/L Troponin I High Sens 28.2 H (0-20) pg/ml B-Natriuretic Peptide 294 H (0-100) pg/ml Coagulation 04/29/25 Range/Units 09:25 B-Natriuretic Peptide 294 H (0-100) pg/ml CBC 04/29/25 Range/Units 06:32 WBC 9.26 (4.8-10.8) K/ul RBC 4.16 L (4.70-6.10) M/uL Hgb 12.3 L (14.0-18.0) g/dl Hct 36.5 L (42.0-52.0) % Plt Count 190 (130-400) K/uL Comprehensive Metabolic Panel 04/29/25 Range/Units 06:32 Sodium 135 L (136-145) mmol/L Potassium 4.9 (3.5-5.1) mmol/L Chloride 104 (98-107) mmol/L Carbon Dioxide 27 (21-32) mmol/L BUN 25 H (6-23) mg/dl Creatinine 1.01 (0.6-1.4) mg/dl Glucose 170 H (70-99(Fasting)) mg/dl Calcium 9.3 (8.6-10.3) mg/dl AST 26 (13-39) U/L ALT 20 (7-52) U/L Alkaline Phosphatase 54 (34-104) U/L Total Protein 6.5 (6.0-8.3) gm/dl Albumin 3.5 (3.4-5.0) gm/dl Intake and Output 04/29/25 04/29/25 04/29/25 06:59 14:59 22:59 Intake Total 200 / 200 Output Total 1800 / 2850 1050 / 2850 Balance -1800 / -2650 -850 / -2650 Intake: IV 50 / 50 cefTRIAXone SODIUM 2,000 mg In 50 / 50 50 ml @ 100 mls/hr IV Q24H [facility] Rx#:[id number] Oral 150 / 150 Output: Urine Amount (Catheter) 1800 / 2850 1050 / 2850 Sosa/Indwelling 1800 / 2850 1050 / 2850 PG Care Time/CCT Total # of Minutes Spent Total Time Spent with Patient: Total time spent is greater than 50% in coordination of care (as documented) at patient's floor/unit and/or counseling patient: Coding Level of Care Code 75875 INT INP/OBS CARE 2/55MIN Diagnoses Acute respiratory failure with hypoxia J96.01 Chronicity: acute Acute on chronic diastolic congestive heart failure I50.33 Heart failure type: diastolic Elevated troponin R79.89 (1) Hypoxic respiratory failure Chronicity: acute Qualified Code(s): J96.01 - Acute respiratory failure with hypoxia (2) CHF exacerbation Heart failure type: diastolic Qualified Code(s): I50.33 - Acute on chronic diastolic (congestive) heart failure
[2025-04-29] MEDS: FUROSEMIDE 40 MG/4 ML VIAL IV SCH (20:43)
[2025-04-30 04:57] LABS: Hematocrit (blood only) 36.9 % (42.0-52.0); Hemoglobin 12.4 g/dl (14.0-18.0); Mean Corpuscular Hemoglobin 29.0 pg (25.0-34.0); Mean Corpuscular Volume 86.2 fL (80.0-100.0); Platelet Count 209 K/uL (130-400); RDW Standard Deviation 41.3 fL (36.4-46.3); Red Blood Count 4.28 M/uL (4.70-6.10); White Blood Count 8.96 K/ul (4.8-10.8)
[2025-04-30 05:13] LABS: Alanine Aminotransferase 22.0 U/L (7-52); Albumin Globulin Ratio 1.1 (0.9-2); Alkaline Phosphatase 58.0 U/L (34-104); Anion Gap 7.0 (3-11); Bilirubin,Total 0.6 mg/dl (0.2-1.0); Blood Urea Nitrogen 25.0 mg/dl (6-23); Calcium 9.5 mg/dl (8.6-10.3); Carbon Dioxide 28.0 mmol/L (21-32); Chloride 100.0 mmol/L (98-107); Creatinine Clr Calc Pharmacy 61.0 ml/min; Globulin 3.4 gm/dl (2.5-4.0); Glucose 200.0 mg/dl (70-99(Fasting)); Magnesium 2.3 mg/dl (1.7-2.4); Potassium 4.1 mmol/L (3.5-5.1); Sodium 135.0 mmol/L (136-145); Total Protein 7.0 gm/dl (6.0-8.3)
--- NOTE | 2025-04-30 07:38 | Electrocardiogram Report ---
Test Reason : Blood Pressure : */* mmHG Vent. Rate : 103 BPM Atrial Rate : 103 BPM P-R Int : 144 ms QRS Dur : 122 ms QT Int : 350 ms P-R-T Axes : 21 -16 0 degrees QTcB Int : 458 ms Sinus tachycardia Right bundle branch block Possible Lateral infarct (cited on or before 12-Jan-2025) Inferior infarct (cited on or before 12-Jan-2025) Abnormal ECG When compared with ECG of 14-Mar-2025 22:12, Premature ventricular complexes are no longer Present Confirmed by Peter Riley ([id number]) on 04/30/2025 7:37:58 AM Referred By: REFERRED SELF Confirmed By: Peter Riley
--- NOTE | 2025-04-30 07:55 | Critical Care Progress Note ---
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 The patient was initially admitted to the hospital after presenting with nausea, vomiting and abdominal pain. He also endorsed fevers, chills and night sweats at home for the past 2 weeks and worsening of his orthostatic symptoms that are chronic for him. The patient received doxycycline in the emergency department and had what was thought to be an anaphylactic reaction for which she was admitted to the medical ICU. The patient was treated for anaphylaxis however his symptoms resolved rapidly. Imaging of the abdomen was normal that was obtained in the ER for his abdominal pain. Labs were suggestive of early DKA which resolved with only IV fluid resuscitation. On further questioning the patient has had his diabetes medications adjusted in the past 2 weeks. The patient improved rapidly and was transferred out of the ICU the following day. The patient remained on Rocephin and steroids on the floor. Additional infectious workup was pending. On 04/29/2025 a code purple was called due to the patient developing respiratory distress and what was thought to be another anaphylactic reaction. In the ICU the patient was started on IV Lasix 40 mg twice daily and had excellent urine output with -4.5 L overnight. The patient was placed on CPAP for a period of time which improved his work of breathing and oxygenation. Patient was able to be weaned off of oxygen overnight. He is currently resting comfortably on room air. Chest x-ray was reviewed, appears to be improving pulmonary vascular congestion. Reason Critically Ill: Acute hypoxic respiratory failure (resolved) Heart failure with moderately reduced ejection fraction with acute exacerbation Volume overload with pulmonary edema Fever of unknown origin Possible anaphylactic reaction to doxycycline (resolved) Mild DKA (resolved) Neuro: Awake and alert. No neurologic complaints today. Cardiac: Heart failure with moderately reduced ejection fraction with acute exacerbation Volume overload with pulmonary edema Patient received volume resuscitation during his initial ICU stay. Has not adequately been de resuscitated. Patient was grossly volume overloaded on arrival to the ICU this time. Started on IV Lasix with excellent urine output. Recommend diuresing until euvolemic and then transitioning to home diuretic regimen. Cardiology was consulted. Respiratory: Acute hypoxic respiratory failure (resolved) Pulmonary edema Underlying asthma with acute exacerbation (resolved) Likely underlying COPD with emphysema on imaging and history of tobacco use Possible anaphylactic reaction (resolved) Diuresing with excellent improvement in oxygenation. Has received an adequate amount of steroids to treat his asthma exacerbation, can discontinue. Likely has underlying COPD. Does not follow with hedis abstractor. Can follow-up with myself in clinic if desired after discharge. Upon discharge would benefit from maintenance inhalers and tobacco cessation counseling and assistance. Avoid doxycycline in the future. GI: Mild DKA (resolved) No longer experiencing nausea, vomiting or having abdominal pain. Was likely due to early DKA that has resolved. On a diabetic diet. RENAL/LYTES: Electrolytes and renal function within normal limits today. Sosa catheter for aggressive diuresis. : Sosa catheter. ENDO: Mild DKA (resolved) Underlying diabetes mellitus type 2 Patient is on Jardiance/metformin, Ozempic as well as insulin injections for his diabetes. In the past 2 weeks he had his regimen adjusted with different insulin pens and switch to a combined metformin and Jardiance pill. He has never had DKA before. Recommend diabetic education prior to discharge or endocrinology consultation to ensure that he is discharged home on the correct medications as to avoid bounce back with recurrent DKA. HEME: CBC acceptable today. No concerns at this time. ID: Fever of unknown origin Has been afebrile for multiple days. Blood cultures negative to date. Parasite smear negative. Lyme negative. Procalcitonin only mildly elevated on admission. Urinalysis not indicative of UTI. MRSA nares is negative. Viral PCR is negative. Q fever pending. Rickettsia is pending. Typhus fever pending. Avoid doxycycline, remains on Rocephin, will defer to primary team for antibiotic selection/duration of therapy. --Prophylaxis VTE: Ambulate GI: On Pepcid Lines: PIV Diet: Diabetic and cardiac Plan: Patient has improved significantly. Seems as though the underlying etiology for his acute decompensation was volume overload with pulmonary edema. May have a component of anxiety that also worsens these episodes. Patient has been started on Lasix IV 40 IV twice daily. Would recommend continuing IV Lasix until the patient is euvolemic and then transition him back to his home diuretic therapy. Can discontinue steroids, this will also help with his volume overload. The patient is stable to be transferred out of the ICU today. Patient is requesting to go home, as long as he is compliant with his diuretics at home and follows up appropriately I think this would be acceptable. I have personally spent 30 minutes of critical care time in the direct management of this patient. This is a life/limb threatening event. This includes time spent evaluating patient, direct bedside care, chart review, placing orders, interpretation of diagnostic studies, discussion with consultants, patient, and family members, as well as other required patient management activities. This time is exclusive of all separately billable procedures, and teaching time and separate from and in addition to any other critical care service time. Admission and Anticipated Discharge Date Admission Date: April 27, 2025 Subjective Past 24-hour events: Patient was transferred to the ICU after a code purple yesterday. Patient had what appears to be anxiety, hypoxia and volume overload with pulmonary edema. The patient was diuresed and placed on CPAP which she tolerated very well. He has made good urine output. Rounding: Patient is doing very well this morning. He diuresed excellently overnight. He has been weaned off to room air. He is wanting to go home today. Lungs are clear to auscultation. Lower extremity edema has improved significantly. He denies any dyspnea, chest pain or shortness of breath. Denies any abdominal pain or nausea. Intake: 300 mL Output: 4885 mL Net: -4595 mL Feeding: Cardiac and diabetic diet IV infusions: None Indwelling catheters: Sosa catheter Laboratory: CBC: WBC 8.9, hemoglobin 12.4, platelets 209 Chemistry: Sodium 135, potassium 4.1, chloride 100, bicarb 28, BUN 25, creatinine 0.98, glucose 200 Review of Systems Review of Systems: 12 point review of system was obtained i n detail, negative except as in HPI. Physical Exam Physical Exam: Physical examination: General: Well-appearing, resting in bed, on room air, not in distress. HEENT: Normocephalic, atraumatic. Extraocular movements intact. Sclera are nonicteric. Skin: Warm and moist. No rashes appreciated. Cardiovascular: Heart is of regular rate and rhythm, no murmurs appreciated. Pitting edema of the lower extremities that is improved compared to yesterday. Lungs: Clear to auscultation bilaterally. No wheezing. On room air. Abdomen: Nondistended, nontender to palpation. Musculoskeletal: Normal muscle mass and tone. No gross joint deformity abnormalities. No effusions appreciated. Neurologic: Awake and alert, oriented. CN II through XII are grossly intact. Speech is fluent. Nonfocal exam. Psychiatric: Appropriate cooperative during my exam. Seems anxious. Results & Data Results & Data Vital Signs (Past 12 Hours) Vital Signs Temp Pulse Resp BP Pulse Ox 04/30/25 06:00 66 16 91 04/30/25 06:00 110/57 L 04/30/25 06:00 110/57 L 04/30/25 06:00 110/57 L 04/30/25 05:30 65 16 92 04/30/25 05:06 68 18 90 04/30/25 05:01 114/59 L 04/30/25 04:51 71 15 90 04/30/25 04:30 63 16 90 04/30/25 04:06 66 18 90 04/30/25 04:00 101/49 L 04/30/25 03:54 63 17 94 04/30/25 03:30 64 18 93 04/30/25 03:09 64 18 98 04/30/25 03:00 119/50 L 04/30/25 02:54 66 16 94 04/30/25 02:42 64 17 96 04/30/25 02:01 113/55 L 04/30/25 02:01 113/55 L 04/30/25 02:01 113/55 L 04/30/25 02:00 64 17 97 04/30/25 01:38 70 04/30/25 01:33 65 19 97 04/30/25 01:00 65 16 97 04/30/25 01:00 111/56 L 04/30/25 00:30 67 17 96 04/30/25 00:03 68 16 95 04/29/25 23:36 69 18 90 04/29/25 23:06 83 21 90 04/29/25 23:00 115/64 04/29/25 23:00 36.6 C 04/29/25 22:42 70 19 90 04/29/25 22:33 80 24 91 04/29/25 22:00 80 21 90 04/29/25 22:00 117/68 04/29/25 22:00 117/68 04/29/25 22:00 117/68 04/29/25 21:42 77 19 91 04/29/25 21:09 74 17 91 04/29/25 21:05 36.6 C 04/29/25 21:00 114/63 04/29/25 20:48 76 18 93 04/29/25 20:33 74 13 90 04/29/25 20:03 79 17 93 04/29/25 20:00 104/51 L 04/29/25 20:00 104/51 L Coding Level of Care Code 93669 CRITICAL CARE 1ST 30-74M Diagnoses Acute respiratory failure with hypoxia J96.01 Chronicity: acute Acute pulmonary edema J81.0 Chronicity: acute Acute on chronic diastolic congestive heart failure I50.33 Heart failure type: diastolic FUO (fever of unknown origin) R50.9 Mild intermittent asthma with acute exacerbation J45.21 Asthma complication type: with acute exacerbation Asthma persistence: intermittent Asthma severity: mild (1) Hypoxic respiratory failure Chronicity: acute Qualified Code(s): J96.01 - Acute respiratory failure with hypoxia (2) Pulmonary edema Chronicity: acute Qualified Code(s): J81.0 - Acute pulmonary edema (3) CHF exacerbation Heart failure type: diastolic Qualified Code(s): I50.33 - Acute on chronic diastolic (congestive) heart failure (5) Asthma Asthma complication type: with acute exacerbation Asthma persistence: intermittent Asthma severity: mild Qualified Code(s): J45.21 - Mild intermittent asthma with (acute) exacerbation
--- NOTE | 2025-04-30 08:09 | XRay Report ---
SINGLE VIEW CHEST CLINICAL HISTORY: Pulmonary edema. Hypoxia FINDINGS: An AP, portable, upright chest radiograph is compared to study dated 04/29/2025 and correlat ed with chest CT dated 03/14/2025. The heart is enlarged noting atherosclerotic calcification of the th oracic aorta. There is pulmonary vascular congestion. Chronic interstitial thickening is similar to p revious. There is bibasilar scarring/atelectasis. No large pleural effusion or Pneumothorax is seen. The skeletal structures are osteopenic. The bony thorax is grossly intact. Surgical clips are noted i n the right axilla. IMPRESSION: Cardiomegaly with pulmonary vascular congestion. This is similar in appearance to yesterd ay. ACT 112: Negative or not required by law. Electronically signed by: Thuan Diego M.D. 04/30/2025 8:07 AM
--- NOTE | 2025-04-30 09:45 | Hospitalist Progress Note ---
Date of Service April 30, 2025 Assessment & Plan (1) Elevated procalcitonin: (2) SIRS (systemic inflammatory response syndrome): (3) Nausea & vomiting: (4) Fever: Plan 75 male CAD status post stents CHF EF 40 hypertension hyperlipidemia diabetes Asthma multinodular goiter Smoking Melanoma status post excision including 2 LN's and chemotherapy, GI Neuroendocrine tumor s/p bowel resection, Orthostatic hypotension anxiety depression presents with ongoing fevers night sweats waking up at night drenched in sweat intermittent nausea vomiting over past ~week. No chest pain shortness of breath cough abdominal pain diarrhea dysuria hematuria or other symptoms or any other symptoms. No recent sick contacts or travel. No rashes. SIRS positive with positive fevers tachypnea tachycardia however no clear source. Workup in ED so far unimpressive. CT abdomen pelvis unrevealing. Chest x-ray negative. Lactate normal. UA unimpressive. Pro-Ward elevated at .74. Respiratory PCR negative. Tick panel pending. On admission the patient developed anaphylaxis and asthma exacerbation suspected secondary to doxycycline. He received epi x 2 racemic epi continuous nebs steroids Benadryl famotidine and placed on epi drip. This medication was discontinued and the patient was Monitored in the MICU overnight. He was weaned off epi drip and downgraded the next day on 04/28. On 04/29, he was transferred back to the MICU with concern for recurrent asthma exacerbation/Anaphylaxis ?, CHF exacerbation. Diuresed and weaned off O2 overnight. Downgraded from the MICU on 04/30. Anaphylaxis secondary to doxycycline / asthma exacerbation resolved Doxycycline documented as severe allergy Status post subq epi x 2 And racemic epi in ED. Required epi GTT Steroids Benadryl famotidine DEBORA and continue home medications Recurrent Asthma exacerbation /Questionable anaphylaxis/CHF On 04/29. Transferred back to MICU For IV diuresis Allergy consultation canceled by MICU team as they feel anaphylaxis was not involved in this recurrent episode of shortness of breath and this was mostly volume overload/CHF related Collection Manager feels episode was mostly CHF and anxiety related, possibly with other triggering stressors. Steroids discontinued today per rigger third. Cardiology following discharge home once cleared by cardiology and pending their recommendation on home diuretic regimen Acute on chronic CHF exacerbation CHF protocol orders TTE Unchanged from previous Diuresis And GDMT per MICU team Acute hypoxic respiratory failure Wean 02 Fevers night sweats Nausea vomiting unclear etiology/SIRS resolved Supportive care Infectious workup NTD including CT abdomen pelvis, chest x-ray, respiratory PCR, UA If recurs without clear explanation, PCP may consider outpatient workup for recurrence of malignancy Empirical IV Rocephin Concern for recent tick exposure. Tick panel NTD Blood cultures NTD Hematuria Noted in UA. Repeat UA Outpatient follow-up Transient acute metabolic encephalopathy on admission resolved CT head unrevealing Delirium precautions Radiographic emphysema Smoking cessation counseling (recently started smoking again) Close outpatient follow-up with pulmonary for PFTs Diabetes Short and long-acting insulin History of CAD status post stents Continue home medications Hypertension Continue home medications DVT prophylaxis Full code Disposition Discharge home once cleared by cardiology Admission and Anticipated Discharge Date Admission Date: April 27, 2025 Subjective Doing very well today with back to room air. Downgraded from MICU. Net -4.6 L and weight down to 83 kg. Repeat CXR read as unchanged. In good spirits no chest pain shortness of breath orthopnea or any other symptoms. He tells me he really wants to go home today. Collection Manager at bedside. She has no objection to discharging the patient today. We discussed waiting for cardiology to see the patient and if they have no objection we will discharge the patient home today on Lasix dosing as recommended by cardiology. Discussed with rigger third she feels anxiety and may be some other stressor was involved in causing the patient to go into heart failure. Cardiology also feels there may have been another process involved in the sudden onset of shortness of breath yesterday aside from CHF. Repeat EKG ordered for this morning per cardiology documentation. Repeat troponin remains flat Collection Manager recommends adding Spiriva to discharge medications and she was seen in her clinic. She recommends discontinuing prednisone today Discussed all aspects of care with patient's other daughter and family members yesterday after the rapid response at bedside in the MICU. Review of Systems Review of Systems: Negative except as in the HPI Physical Exam Physical Exam: Awake alert no acute distress Supple Air entry bilaterally no crackles rales rhonchi or wheeze S1-S2 positive no murmurs rubs gallops Soft nontender Palpable pulses no rashes Trace edema improved Constitutional: WD/WN, vitals as above no acute distress Neck: trachea midline, no thyromegaly Respiratory: normal respiratory effort, lungs clear to auscultation Cardiovascular: RRR, no murmur, no edema Gastrointestinal (Abdomen): Inspection/Auscultation: normal bowel sounds Musculoskeletal: no cyanosis or clubbing, extremities motor strength 5/5 Head/Neck/Chest: normocephalic and neck supple Skin: no rashes, warm and dry + ecchymosis (extremities and left side) Trauma: + evidence of skin trauma, + contusion (left upper extremity, left lower extremity, left side, right leg) and + hematoma (large left medial thigh, right arm) Neurologic: moves all extremities; no focal motor deficits and not confused Psychiatric: A+Ox3, euthymic affect Results & Data Results & Data Vital Signs (Past 12 Hours) Vital Signs Temp Pulse Resp BP Pulse Ox 04/30/25 06:00 66 16 91 04/30/25 06:00 110/57 L 04/30/25 06:00 110/57 L 04/30/25 06:00 110/57 L 04/30/25 05:30 65 16 92 04/30/25 05:06 68 18 90 04/30/25 05:01 114/59 L 04/30/25 04:51 71 15 90 04/30/25 04:30 63 16 90 04/30/25 04:06 66 18 90 04/30/25 04:00 101/49 L 04/30/25 03:54 63 17 94 04/30/25 03:30 64 18 93 04/30/25 03:09 64 18 98 04/30/25 03:00 119/50 L 04/30/25 02:54 66 16 94 04/30/25 02:42 64 17 96 04/30/25 02:01 113/55 L 04/30/25 02:01 113/55 L 04/30/25 02:01 113/55 L 04/30/25 02:00 64 17 97 04/30/25 01:38 70 04/30/25 01:33 65 19 97 04/30/25 01:00 65 16 97 04/30/25 01:00 111/56 L 04/30/25 00:30 67 17 96 04/30/25 00:03 68 16 95 04/29/25 23:36 69 18 90 04/29/25 23:06 83 21 90 04/29/25 23:00 115/64 04/29/25 23:00 36.6 C 04/29/25 22:42 70 19 90 04/29/25 22:33 80 24 91 04/29/25 22:00 80 21 90 04/29/25 22:00 117/04/29/25 22:00 117/04/29/25 22:00 11704/29/25 21:42 77 19 91 PG Care Time/CCT Total # of Minutes Spent Total Time Spent with Patient: Total time spent is greater than 50% in coordination of care (as documented) at patient's floor/unit and/or counseling patient: Coding Level of Care Code 01304 SUB INP/OBS CARE 2/35MIN Diagnoses Elevated procalcitonin R79.89 SIRS (systemic inflammatory response syndrome) R65.10 Nausea & vomiting R11.2 Fever R50.9
--- NOTE | 2025-04-30 09:47 | XRay Report ---
SINGLE VIEW CHEST CLINICAL HISTORY: Hypoxia FINDINGS: An AP, portable, upright chest radiograph is compared to study performed earlier the same d ay 04/30/2025 and correlated with chest CT dated 03/14/2025. The heart is enlarged noting atheroscleroti c calcification of the thoracic aorta. There is pulmonary vascular congestion. Chronic interstitial t hickening is similar to previous. There is bibasilar scarring/atelectasis. No large pleural effusion or pneumothorax is seen. The skeletal structures are osteopenic. The bony thorax is grossly intact. S urgical clips are noted in the right axilla. IMPRESSION: Cardiomegaly with pulmonary vascular congestion. This is similar in appearance to today's earlier examination. ACT 112: Negative or not required by law. Electronically signed by: Thuan Diego M.D. 04/30/2025 9:45 AM
[2025-05-01 06:10] LABS: Hematocrit (blood only) 40.6 % (42.0-52.0); Hemoglobin 13.5 g/dl (14.0-18.0); Mean Corpuscular Hemoglobin 28.7 pg (25.0-34.0); Mean Corpuscular Volume 86.2 fL (80.0-100.0); Platelet Count 288 K/uL (130-400); RDW Standard Deviation 40.9 fL (36.4-46.3); Red Blood Count 4.71 M/uL (4.70-6.10); White Blood Count 10.24 K/ul (4.8-10.8)
[2025-05-01 07:49] VITALS: TEMP 97.5
--- NOTE | 2025-05-01 09:06 | XRay Report ---
SINGLE VIEW CHEST CLINICAL HISTORY: Follow-up congestive heart failure. FINDINGS: An AP, portable, upright chest radiograph is compared to study studies dated 04/30/2025 and correlated with chest CT dated 03/14/2025. The heart is enlarged noting atherosclerotic calcification o f the thoracic aorta. Pulmonary vascular congestion has improved. Chronic interstitial thickening is similar to previous. There is bibasilar scarring/atelectasis. No large pleural effusion or pneumothor ax is seen. The skeletal structures are osteopenic. The bony thorax is grossly intact. Surgical clips are noted in the right axilla. IMPRESSION: Cardiomegaly. Pulmonary vascular congestion has improved from previous. ACT 112: Negative or not required by law. Electronically signed by: Thuan Diego M.D. 05/01/2025 9:04 AM
--- NOTE | 2025-05-01 09:34 | Hospitalist Progress Note ---
Date of Service May 01, 2025 Assessment & Plan (1) Elevated procalcitonin: (2) SIRS (systemic inflammatory response syndrome): (3) Nausea & vomiting: (4) Fever: Plan 75 male CAD status post stents CHF EF 40 hypertension hyperlipidemia diabetes Asthma multinodular goiter Smoking Melanoma status post excision including 2 LN's and chemotherapy, GI Neuroendocrine tumor s/p bowel resection, Orthostatic hypotension anxiety depression presents with ongoing fevers night sweats waking up at night drenched in sweat intermittent nausea vomiting over past ~week. No chest pain shortness of breath cough abdominal pain diarrhea dysuria hematuria or other symptoms or any other symptoms. No recent sick contacts or travel. No rashes. SIRS positive with positive fevers tachypnea tachycardia however no clear source. Workup in ED so far unimpressive. CT abdomen pelvis unrevealing. Chest x-ray negative. Lactate normal. UA unimpressive. Pro-Ward elevated at .74. Respiratory PCR negative. Tick panel pending. On admission the patient developed anaphylaxis and asthma exacerbation suspected secondary to doxycycline. He received epi x 2 racemic epi continuous nebs steroids Benadryl famotidine and placed on epi drip. This medication was discontinued and the patient was Monitored in the MICU overnight. He was weaned off epi drip and downgraded the next day on 04/28. On 04/29, he was transferred back to the MICU with concern for recurrent asthma exacerbation/Anaphylaxis ?, CHF exacerbation. Diuresed and weaned off O2 overnight. Downgraded from the MICU on 04/30. Anaphylaxis secondary to doxycycline / asthma exacerbation resolved Doxycycline documented as severe allergy Status post subq epi x 2 And racemic epi in ED. Required epi GTT Steroids Benadryl famotidine DEBORA and continue home medications Recurrent Asthma exacerbation /Questionable anaphylaxis/CHF On 04/29. Transferred back to MICU For IV diuresis Allergy consultation canceled by MICU team as they feel anaphylaxis was not involved in this recurrent episode of shortness of breath and this was mostly volume overload/CHF related General Office Assistant feels episode was mostly CHF and anxiety related, possibly with other triggering stressors. Steroids discontinued today per automobile salesman. Cardiology following discharge home once cleared by cardiology and pending their recommendation on home diuretic regimen Acute on chronic CHF exacerbation CHF protocol orders TTE Unchanged from previous Diuresis And GDMT per MICU team Acute hypoxic respiratory failure Wean 02 Fevers night sweats Nausea vomiting unclear etiology/SIRS resolved Supportive care Infectious workup NTD including CT abdomen pelvis, chest x-ray, respiratory PCR, UA If recurs without clear explanation, PCP may consider outpatient workup for recurrence of malignancy Empirical IV Rocephin Concern for recent tick exposure. Tick panel NTD Blood cultures NTD Hematuria Noted in UA. Repeat UA Outpatient follow-up Transient acute metabolic encephalopathy on admission resolved CT head unrevealing Delirium precautions Radiographic emphysema Smoking cessation counseling (recently started smoking again) Close outpatient follow-up with pulmonary for PFTs Diabetes Short and long-acting insulin History of CAD status post stents Continue home medications Hypertension Continue home medications DVT prophylaxis Full code Disposition Discharge home once cleared by cardiology Admission and Anticipated Discharge Date Admission Date: April 27, 2025 Subjective Doing very well sitting up eating breakfast. On room air. Tells me he is ambulating without any issues. No shortness of breath orthopnea chest pain nausea lightheadedness diaphoresis or any other symptoms. No edema noted. Chest x-ray improved. I's and O's -1.3 L. Weight has overall improved remains around 83 kg. We went over all aspects of his hospitalization and care going forward extensively again. We discussed again pending tick labs to follow-up with his PCP Awaiting cardiology evaluation he is known to their group. Considering his propensity to go back in heart failure awaiting cardiology clearance and input on optimal diuretic dosing on discharge Discussed with RNs. They tell me EKG was done this morning but still do not see it uploaded in the EMR? MICU RNs told me yesterday that it was done as well I do not see that EKG uploaded either. Review of Systems Review of Systems: Negative except as in the HPI Physical Exam Physical Exam: Awake alert no acute distress Supple Air entry bilaterally no crackles rales rhonchi or wheeze S1-S2 positive no murmurs rubs gallops Soft nontender Palpable pulses no rashes Trace edema improved Constitutional: WD/WN, vitals as above no acute distress Neck: trachea midline, no thyromegaly Respiratory: normal respiratory effort, lungs clear to auscultation Cardiovascular: RRR, no murmur, no edema Gastrointestinal (Abdomen): Inspection/Auscultation: normal bowel sounds Musculoskeletal: no cyanosis or clubbing, extremities motor strength 5/5 Head/Neck/Chest: normocephalic and neck supple Skin: no rashes, warm and dry + ecchymosis (extremities and left side) Trauma: + evidence of skin trauma, + contusion (left upper extremity, left lower extremity, left side, right leg) and + hematoma (large left medial thigh, right arm) Neurologic: moves all extremities; no focal motor deficits and not confused Psychiatric: A+Ox3, euthymic affect Results & Data Results & Data Vital Signs (Past 12 Hours) Vital Signs Temp Pulse Pulse Pulse Resp BP Pulse Ox 05/01/25 08:00 66 05/01/25 07:30 36.4 C L 72 18 116/76 93 05/01/25 03:16 36.5 C 73 20 115/71 90 04/30/25 23:29 36.5 C 69 19 112/65 92 04/30/25 21:41 77 O2 Del Method 05/01/25 08:00 05/01/25 07:30 Room Air 05/01/25 03:16 Room Air 04/30/25 23:29 Room Air 04/30/25 21:41 PG Care Time/CCT Total # of Minutes Spent Total Time Spent with Patient: Total time spent is greater than 50% in coordination of care (as documented) at patient's floor/unit and/or counseling patient: Coding Level of Care Code 36640 SUB INP/OBS CARE 2/35MIN Diagnoses Elevated procalcitonin R79.89 SIRS (systemic inflammatory response syndrome) R65.10 Nausea & vomiting R11.2 Fever R50.9
[2025-05-01 11:16] VITALS: BP 112/67; RESP 20; O2SAT 94
--- NOTE | 2025-05-01 13:07 | Electrocardiogram Report ---
Test Reason : Blood Pressure : */* mmHG Vent. Rate : 77 BPM Atrial Rate : 77 BPM P-R Int : 148 ms QRS Dur : 124 ms QT Int : 422 ms P-R-T Axes : 42 -17 1 degrees QTcB Int : 477 ms Normal sinus rhythm Right bundle branch block Lateral infarct (cited on or before 12-Jan-2025) Inferior infarct (cited on or before 12-Jan-2025) Abnormal ECG When compared with ECG of 27-Apr-2025 13:09, No significant change was found Confirmed by Madhu Lee ([id number]) on 05/01/2025 1:06:52 PM Referred By: REFERRED SELF Confirmed By: Madhu Lee
--- NOTE | 2025-05-01 15:12 | Discharge Summary ---
Discharge Summary Date of Service May 01, 2025 SUBJECTIVE: RN and I reached out to food or baggage handling rampman yesterday and today a few times requesting follow up. Reached out to Dr Lee again today he told me he would not be able to see the patient today and tomorrow another food or baggage handling rampman will be rounding. RN tells notified patient and the patient did not want to stay another night. shortly after pt was getting ready to leave dressed up and leave. I asked he hold off to avoid an AMA status on his record and hospital stay possibly not ortega ng covered by insurance. we went over everything extensively again. he will watch his daily weights, for worsening swelling of the legs and worsening shortness of breath. he will call his food or baggage handling rampman first thing tomorrow for a follow up plan and to go over his cardiac medications including lasix dosing. we discussed the importance of close follow up and strict return precautions. RN was present and will go over everything again with the patient prior to releasing him. He knows he can call the hospital at any time late into tonight iif has any questions or needs anything clarified Principal Dx & Hospital Course #1 = Principal Diagnosis (1) Elevated procalcitonin: (2) SIRS (systemic inflammatory response syndrome): (3) Nausea & vomiting: (4) Fever: Plan 75 male CAD status post stents CHF EF 40 hypertension hyperlipidemia diabetes Asthma multinodular goiter Smoking Melanoma status post excision including 2 LN's and chemotherapy, GI Neuroendocrine tumor s/p bowel resection, Orthostatic hypotension anxiety depression presents with ongoing fevers night sweats waking up at night drenched in sweat intermittent nausea vomiting over past ~week. No chest pain shortness of breath cough abdominal pain diarrhea dysuria hematuria or other symptoms or any other symptoms. No recent sick contacts or travel. No rashes. SIRS positive with positive fevers tachypnea tachycardia however no clear source. Workup in ED so far unimpressive. CT abdomen pelvis unrevealing. Chest x-ray negative. Lactate normal. UA unimpressive. Pro-Ward elevated at .74. Respiratory PCR negative. Tick panel pending. On admission the patient developed anaphylaxis and asthma exacerbation suspected secondary to doxycycline. He received epi x 2 racemic epi continuous nebs steroids Benadryl famotidine and placed on epi drip. This medication was discontinued and the patient was Monitored in the MICU overnight. He was weaned off epi drip and downgraded the next day on 04/28. On 04/29, he was transferred back to the MICU with concern for recurrent asthma exacerbation/Anaphylaxis ?, CHF exacerbation. Diuresed and weaned off O2 overnight. Downgraded from the MICU on 04/30. Anaphylaxis secondary to doxycycline / asthma exacerbation resolved Doxycycline documented as severe allergy Status post subq epi x 2 And racemic epi in ED. Required epi GTT Steroids Benadryl famotidine DEBORA and continue home medications Recurrent Asthma exacerbation /Questionable anaphylaxis/CHF On 04/29. Transferred back to MICU For IV diuresis Allergy consultation canceled by MICU team as they feel anaphylaxis was not involved in this recurrent episode of shortness of breath and this was mostly volume overload/CHF related Glass Sander Belt feels episode was mostly CHF and anxiety related, possibly with other triggering stressors. Steroids discontinued today per kitchen helper. Cardiology following discharge home once cleared by cardiology and pending their recommendation on home diuretic regimen Acute on chronic CHF exacerbation CHF protocol orders TTE Unchanged from previous Diuresis And GDMT per MICU team Acute hypoxic respiratory failure Wean 02 Fevers night sweats Nausea vomiting unclear etiology/SIRS resolved Supportive care Infectious workup NTD including CT abdomen pelvis, chest x-ray, respiratory PCR, UA If recurs without clear explanation, PCP may consider outpatient workup for recurrence of malignancy Empirical IV Rocephin Concern for recent tick exposure. Tick panel NTD Blood cultures NTD Hematuria Noted in UA. Repeat UA Outpatient follow-up Transient acute metabolic encephalopathy on admission resolved CT head unrevealing Delirium precautions Radiographic emphysema Smoking cessation counseling (recently started smoking again) Close outpatient follow-up with pulmonary for PFTs Diabetes Short and long-acting insulin History of CAD status post stents Continue home medications Hypertension Continue home medications DVT prophylaxis Full code Disposition Discharge home once cleared by cardiology Admission HPI Per Admitting Provider 75 male CAD status post stents hypertension hyperlipidemia diabetes Asthma mult inodular goiter Smoking Melanoma status post excision and chemotherapy anxiety depression presents with ongoing fevers night sweats waking up at night drenched in sweat intermittent nausea vomiting. No chest pain shortness of breath cough abdominal pain diarrhea dysuria hematuria or other symptoms or any other symptoms. No recent sick contacts or travel. No rashes. SIRS positive with positive fevers tachypnea tachycardia however no clear source. Workup in ED so far unimpressive. CT abdomen pelvis unrevealing. Chest x-ray negative. Lactate normal. UA unimpressive. Pro-Ward elevated at .74. Respiratory PCR negative. Tick panel pending. Awaiting completion of home med rec to resume home medications Discharge Exam Awake alert no acute distress Supple Air entry bilaterally no crackles rales rhonchi or wheeze S1-S2 positive no murmurs rubs gallops Soft nontender Palpable pulses no rashes Trace edema improved Constitutional no acute distress Neck trachea midline, no thyromegaly Respiratory normal respiratory effort, lungs clear to auscultation Cardiovascular RRR, no murmur, no edema Gastrointestinal (Abdomen) Inspection/Auscultation: normal bowel sounds Musculoskeletal no cyanosis or clubbing, extremities motor strength 5/5 Head/Neck/Chest: normocephalic and neck supple Skin no rashes, warm and dry + ecchymosis (extremities and left side) Trauma: + evidence of skin trauma, + contusion (left upper extremity, left lower extremity, left side, right leg) and + hematoma (large left medial thigh, right arm) Neurologic moves all extremities; no focal motor deficits and not confused Psychiatric A+Ox3, euthymic affect Discharge Plan Discharge Items Disposition: Home - Self-Care Reason For Visit: ANAPHYLAXIS Discharge Diagnosis: fevers, asthma exacerbation, anaphylaxis, Questionable doxycycline allergy, CHF exacerbation Rule out tickborne illness Condition on Discharge: Fair Follow-up/Referrals: Peter Riley MD [Physician] - Marge Guzman CRNP [Primary Care Provider] - Soni Lozoya PA-C [Nurse Practitioner] - Sarah Attending Provider Instructions: Follow-up with your primary care doctor and lung doctor and heart doctor within 1 week. You will need pulmonary function test. Please stop smoking. Monitor your blood sugars closely at home. Your blood sugars were a little uncontrolled on admission after the recent changes in your diabetes medications follow-up closely with your doctors to reassess the need for further adjustments. As you know very well, you cannot have doxycycline again. It may be worth considering getting referral to an stock hanger to evaluate for other possible severe drug allergies considering how severe your reactions are with anaphylaxis As we discussed if it has been a little while since you have had follow-up regarding your history of melanoma and GI neuroendocrine tumor, please follow-up to ensure there is no recurrence. We need to ensure unexplained fevers and night sweats is not related to malignancy. Stand-Alone Forms: My [facility] Speek, Smoking Cessation Medications and DC Order Prescriptions: New albuterol sulfate [Ventolin HFA] 90 mcg/actuation Hfa Aerosol Inhaler 1 puff inhalation QID PRN (Reason: shortness of breath or wheezing) 30 Days Qty: 8.5 0RF budesonide-formoterol 160-4.5 mcg/actuation HFA aerosol inhaler 1 inh inhalation BID Qty: 10.2 0RF Spiriva Respimat 1.25 mcg/actuation mist 2 inh inhalation DAILY Qty: 4 0RF hydroxyzine HCl 25 mg Tablet 25 mg PO Q6H PRN (Reason: anxiety) Qty: 20 0RF furosemide [Lasix] 40 mg tablet 40 mg PO BID Qty: 60 0RF Continued (DME) pen needle, diabetic 31 gauge x 5/32" needle See Rx Instructions .Route Qty: 100 0RF Rx Instructions: As directed (DME) OneTouch Verio test strips Strip See Rx Instructions .Route Qty: 50 2RF Rx Instructions: Test 1x daily montelukast 10 mg tablet 10 mg PO DAILY Qty: 90 3RF escitalopram oxalate 10 mg tablet 10 mg PO DAILY Qty: 90 3RF amlodipine 5 mg tablet 5 mg PO DAILY Qty: 90 3RF famotidine 20 mg tablet 20 mg PO BID Qty: 180 3RF losartan 25 mg tablet 25 mg PO QAM 30 Days Qty: 90 1RF atorvastatin 80 mg tablet 80 mg PO QAM 30 Days Qty: 90 3RF pantoprazole 40 mg tablet,delayed release (DR/EC) 40 mg PO QAM 30 Days Qty: 90 1RF carvedilol 3.125 mg tablet 3.125 mg PO BIDM 30 Days Qty: 180 3RF prasugrel HCl 10 mg tablet 10 mg PO DAILY Qty: 100 3RF Ozempic 0.25 mg or 0.5 mg (2 mg/3 mL) pen injector 0.5 mg subcut WK Rx Instructions: friday mornings aspirin 81 mg Tablet,Delayed Release (Dr/Ec) 81 mg PO DAILY multivitamin Tablet 1 tab PO DAILY insulin glargine-yfgn 100 unit/mL (3 mL) insulin pen 20 unit subcut QAM albuterol sulfate 90 mcg/actuation Hfa Aerosol Inhaler 1 inh INHALATION QID PRN (Reason: sob) cyanocobalamin (vitamin B-12) [Vitamin B-12] 1,000 mcg Tablet 1,000 mcg PO DAILY Synjardy XR 10-1,000 mg Tablet, Ir - Er, Biphasic 24hr 1 tab PO QAM Discontinued furosemide 20 mg tablet 20 mg PO DAILY Qty: 90 3RF Discharge Orders: Discharge Order- CHF (Routine); Ordered 05/01/25 Ordered By: Amber Guardado/Other Patient Handouts: Ketones Check, Diabetic Ketoacidosis, Diabetes and Illness Admission Data Admit Date/Time: 04/27/25 17:05 Attending Provider: Amber Ace Admit Provider: Amber Ace Primary Care Provider: Marge Guzman Other Providers: [facility]; Earnest Naik; Cayden Henriquez; Reji Zelaya; Karlene Huang; Jb Rousseau; Soni Lozoya; Kailash Jain; Rosana Schwab Rick D; [place], Heather L.; Onur Zhu Diana; Nissa Cervantes; Jordon Ward; Onur Land; Quincy Resendiz; Nellie Rizo; Shanna Perez; Amy Brown Andrea; Cierra Casillas; Willian Drew; Madhu Lee; Deyvi Hidalgo; Peter Riley; Frank Duffy Jr; Ananth Mares; Vianey An; Reva Billingsley; Piyush Archer; Piyush Esquivel; Avril Loza; Salomón Elias; Rachel Vargas; Salomón Veloz; Jamal Jefferson; Gus Liu; Andrew Ospina; Moncho Enriquez; Stefan Madsen; Xiomara Velez Hospital Stay Data Consultations 04/27/25 15:49 ED Decision to Admit Stat 04/27/25 19:27 Consult Glass Sander Belt Routine 04/28/25 14:50 Consult Endocrinology Routine 04/29/25 10:31 Consult Glass Sander Belt Routine 04/29/25 15:51 Consult Cardiology Routine Diagnostic Imagining Performed 04/27/25 13:23 CT Abd and Pelvis [CT abd pelvis IV con only] Stat 04/27/25 20:[address] [CT head/brain wo con] Stat Pending Results Patient Have Any Pending Studies at Discharge: No Discharge Instructions Given to Patient (Per Discharging Provider) Follow-up with your primary care doctor and lung doctor and heart doctor within 1 week. You will need pulmonary function test. Please stop smoking. Monitor your blood sugars closely at home. Your blood sugars were a little uncontrolled on admission after the recent changes in your diabetes medications follow-up closely with your doctors to reassess the need for further adjustments. As you know very well, you cannot have doxycycline again. It may be worth considering getting referral to an stock hanger to evaluate for other possible severe drug allergies considering how severe your reactions are with anaphylaxis As we discussed if it has been a little while since you have had follow-up regarding your history of melanoma and GI neuroendocrine tumor, please follow-up to ensure there is no recurrence. We need to ensure unexplained fevers and night sweats is not related to malignancy. Total Time Total Time Spent Total Time Spent (In Minutes): 35 Coding Level of Care Code 92264 INP/OBS DISCH >30 MIN Diagnoses Elevated procalcitonin R79.89 SIRS (systemic inflammatory response syndrome) R65.10 Nausea & vomiting R11.2 Fever R50.9
[2025-05-01 15:16] VITALS: PULSE 160
[2025-05-04 20:17] LABS: Borrelia miyamotoi DNA Not Detected (Not Detected); Borrelia miyamotoi IgG Ab 0.21 INDEX; Borrelia miyamotoi IgM Ab 0.23 INDEX; Borrelia miyamotoi Source WHOLE BLOOD
--- NOTE | 2025-05-05 18:14 | Electrocardiogram Report ---
Test Reason : Blood Pressure : */* mmHG Vent. Rate : 80 BPM Atrial Rate : 80 BPM P-R Int : 142 ms QRS Dur : 120 ms QT Int : 428 ms P-R-T Axes : 98 -12 -5 degrees QTcB Int : 493 ms Normal sinus rhythm Right bundle branch block Inferolateral infarct Abnormal ECG When compared with ECG of 27-Apr-2025 13:09, No significant change Confirmed by Ananth Mares ([id number]) on 05/05/2025 6:13:41 PM Referred By: REFERRED SELF Confirmed By: Ananth Mares
== END 2025-05-01 15:29 | disposition home or self-care (01) | DRG 864 ==
LOC: ED 12:59 → EDINP 17:05 → 1E 20:41 → 2W 04-28 21:46 → 1E 04-29 10:46 → 2S 04-30 20:42